=== PATIENT | female | born 1980 | race Caucasian/White ===

== ENCOUNTER → 2016-10-07 | Outpatient (CLI) | payer OTHER ==
[~2016-10-07] MED LIST: ACET50TA PO; CETI5TA GT; IBUP80TA PO; PRE-TAB3 AD; [UNRECOGNIZED DRUG - CODE] XX
--- NOTE | 2016-10-07 11:10 | REP ---
ABDOMEN, FLAT AND UPRIGHT, PA CHEST, THREE VIEWS: HISTORY: Abdominal pain. Air is present in small and large intestine. There are no air fluid levels or dilated loops of intestine. There is no pneumoperitoneum. There is spina bifida occulta of L5. The lungs are clear. IMPRESSION: Nonspecific bowel gas pattern. Signed by Ephraim Hill MD 10/07/2016 11:23 A
[2016-10-07 18:47] LABS: ALBUMIN 4.5 GM/DL (3.2-5.2); ALBUMIN/GLOBULIN RATIO 1.88 (1.00-1.93); ALKALINE PHOSPHATASE 73 U/L (45-117); ALT/SGPT 16 U/L (12-78); ANION GAP 9 MEQ/L (8-16); AST/SGOT 9 U/L (15-37); BILIRUBIN,TOTAL 0.3 MG/DL (0.2-1.0); BLOOD UREA NITROGEN 11 MG/DL (7-18); CALCIUM LEVEL 8.5 MG/DL (8.5-10.1); CARBON DIOXIDE LEVEL 22 MEQ/L (21-32); CHLORIDE LEVEL 112 MEQ/L (98-107); CREATININE FOR GFR 0.92 MG/DL (0.55-1.02); GLOMERULAR FILTRATION RATE > 60.0 (>60); GLUCOSE, FASTING 100 MG/DL (70-105); POTASSIUM SERUM 4.1 MEQ/L (3.5-5.1); SODIUM LEVEL 143 MEQ/L (136-145); TOTAL PROTEIN 6.9 GM/DL (6.4-8.2)
[2016-10-07 18:59] LABS: MEAN CORPUSCULAR VOLUME 98.5 fl (80.0-96.0); WHITE BLOOD COUNT 5.7 K/mm3 (4.0-10.0)
[2016-10-07 19:00] LABS: MEAN CORPUSCULAR HGB CONC 33.4 g/dl (32.0-36.5); RED CELL DISTRIBUTION WIDTH 12.7 % (11.5-14.5)
[2016-10-07 19:45] LABS: ERYTHROCYTE SEDIMENTATION RATE 6 mm/hr (0-20)
[2016-10-07 19:49] LABS: BASOPHILS 1 % (0-4); EOSINOPHILS 6 % (0-5)
== END ==
LOC: M WUC 10:19
PROVIDERS: ATTEND Physician Assistant
DX: R10.32 Left lower quadrant pain (principal)

== ENCOUNTER 2017-06-24 15:17 | Emergency (ER) | payer OTHER ==
[~2017-06-24] VITALS: Ht 157.5 cm; Wt 66.0 kg
[~2017-06-24 15:17] MED LIST changes: -BUPR1TAB53 PO; -CIPR-249 PO; -GASTROGRAFIN SOLUTION 30ML (Q9963) As Ordered ONE; -ISOVUE-370 76% 100ML VIAL (Q9967) As Ordered ONE; -PYRI1TAB5 PO; -TOPA1TAB PO
[2017-06-24 15:18] VITALS: BP 108/63
[2017-06-24] MEDS ORDERED: BUPR1TAB53 PO (15:29)
[2017-06-24] MEDS ORDERED: TOPA1TAB PO (15:29)
[2017-06-24] MEDS ORDERED: CIPR-249 PO ×2 (15:37→16:20)
[2017-06-24] MEDS ORDERED: PYRI1TAB5 PO (15:38)
== END 2017-06-24 16:40 | disposition home or self-care (01) ==
LOC: M ED 15:17
DX: N10 Acute pyelonephritis (principal); F33.9 Major depressive disorder, recurrent, unspecified; F17.210 Nicotine dependence, cigarettes, uncomplicated; Z79.899 Other long term (current) drug therapy

== ENCOUNTER → 2017-06-24 | Outpatient (CLI) | payer OTHER ==
[~2017-06-24] MED LIST changes: +BUPR1TAB53 PO; +CIPR-249 PO; +PYRI1TAB5 PO; +TOPA1TAB PO
--- NOTE | 2017-06-24 11:54 | REP ---
KUB ABDOMEN AND PELVIS: KUB film of abdomen and pelvis is performed. Bowel gas pattern is unremarkable with no evidence of bowel obstruction. There appears to be some scattered speckled dense material in the colon associated with fecal material. There is an oval density in the right pelvis measuring 7 mm in maximum diameter, again this may be related to fecal material in the colon. However, I cannot completely exclude a distal ureteral calculus. Further evaluation may be made with CT scan. Signed by Ramiro Alanis MD 06/25/2017 09:08 A
[2017-06-24 12:05] LABS: BASO % 0.1 % (0.0-1.0); EOS # 0.2 10^3/uL (0.0-0.50); EOS % 0.9 % (0.0-3.0); IMMATURE GRANULOCYTE % 0.4 % (0-0); LYMPH # 1.5 10^3/uL (1.5-4.5); LYMPH % 8.8 % (24.0-44.0); MEAN CORPUSCULAR HEMOGLOBIN 32.5 pg (27.0-33.0); MEAN CORPUSCULAR HGB CONC 33.5 g/dl (32.0-36.5); MEAN CORPUSCULAR VOLUME 96.8 fl (80.0-96.0); MONO # 1.5 10^3/uL (0.0-0.8); MONO % 8.9 % (0.0-5.0); NEUTROPHILS # 13.7 10^3/uL (1.8-7.7); NEUTROPHILS % 80.9 % (36.0-66.0); PLATELET COUNT, AUTOMATED 302 10^3/uL (150-450); RED CELL DISTRIBUTION WIDTH 12.9 % (11.5-14.5); WHITE BLOOD COUNT 16.9 10^3/uL (4.0-10.0)
[2017-06-24 12:27] LABS: ALBUMIN 3.6 GM/DL (3.2-5.2); ALBUMIN/GLOBULIN RATIO 1.06 (1.00-1.93); ALKALINE PHOSPHATASE 90 U/L (45-117); ALT/SGPT 18 U/L (12-78); AMYLASE 18 U/L (25-115); ANION GAP 9 MEQ/L (8-16); AST/SGOT 7 U/L (7-37); BILIRUBIN,TOTAL 0.3 MG/DL (0.2-1.0); BLOOD UREA NITROGEN 10 MG/DL (7-18); CALCIUM LEVEL 8.4 MG/DL (8.5-10.1); CARBON DIOXIDE LEVEL 23 MEQ/L (21-32); CHLORIDE LEVEL 106 MEQ/L (98-107); GLOMERULAR FILTRATION RATE > 60.0 (>60); GLUCOSE, FASTING 108 MG/DL (70-105); POTASSIUM SERUM 3.7 MEQ/L (3.5-5.1); SODIUM LEVEL 138 MEQ/L (136-145)
== END ==
LOC: M WUC 10:30
PROVIDERS: ATTEND Physician Assistant
DX: M54.5 Low back pain (principal)

== ENCOUNTER → 2017-06-24 | Outpatient (CLI) | payer OTHER ==
[~2017-06-24] MED LIST changes: +GASTROGRAFIN SOLUTION 30ML (Q9963) As Ordered ONE; +ISOVUE-370 76% 100ML VIAL (Q9967) As Ordered ONE
--- NOTE | 2017-06-24 14:55 | REP ---
CT of the abdomen pelvis without and with IV contrast: There are no comparisons. There is bilateral L5 spondylolysis. There is grade II L5 spondylolisthesis. There is L5 S1 advanced degenerative disc disease. The visualized lung gardner are unremarkable. The hepatic parenchyma, gallbladder, pancreas and spleen are unremarkable on both phases of the study. The adrenals are unremarkable. There are three E hypodense lesions in the right kidney, not definitely cysts by CT. Mid pole posterior medially measuring 19 mm . Lower pole posteriorly measuring 10 mm. Lower pole laterally measuring 18 mm. These are nonspecific and could represent pyelonephritis, renal masses or renal cysts. Recommend follow-up MRI for further evaluation. The left kidney is unremarkable. The abdominal aorta is unremarkable. There is no bowel distension or obstruction. Pelvis: There is a left adnexal 18 mm follicle. The right adnexa is unremarkable. The uterus is unremarkable. There is no adenopathy or ascites. Half the pelvic bowel loops are unremarkable. The appendix is unremarkable. Impression: There are three hypodense lesions in the right kidney, not definitively cysts by CT. Other diagnostic considerations are renal masses and pyelonephritis. Recommend MRI for further evaluation of these findings. There is no hydronephrosis. There is an 18 mm follicle in the left adnexa. The gallbladder and appendix are unremarkable. There is bilateral L5 spondylolysis with grade 2 spondylolisthesis. There is L5 S1 advanced degenerative disc disease. Signed by Ramiro Crawford MD 06/24/2017 02:47 P
== END ==
LOC: M RAD 12:15
PROVIDERS: ATTEND Physician Assistant
DX: M54.5 Low back pain (principal)

== ENCOUNTER 2017-08-18 14:28 | Emergency (ER) | payer OTHER | END 2017-08-18 16:54 | disposition home or self-care (01) | LOC: M ED 14:28 | DX: Z04.1 Encounter for examination and observation following transport accident (principal); M62.830 Muscle spasm of back; V43.52XA Car driver injured in collision with other type car in traffic accident, initial encounter; Y92.410 Unspecified street and highway as the place of occurrence of the external cause; F41.9 Anxiety disorder, unspecified; F33.9 Major depressive disorder, recurrent, unspecified; F17.210 Nicotine dependence, cigarettes, uncomplicated; Z86.69 Personal history of other diseases of the nervous system and sense organs | CPT/HCPCS: 99283 ==

== ENCOUNTER → 2017-10-26 | Outpatient (CLI) | payer OTHER ==
[~2017-10-26] MED LIST changes: -ACET50TA PO; -CETI5TA GT; -IBUP80TA PO; -PRE-TAB3 AD; +PROHANCE 279.3MG/ML 15ML VIAL (A9576) As Ordered; -[UNRECOGNIZED DRUG - CODE] XX
== END ==
LOC: M RAD 08:43
DX: R93.421 Abnormal radiologic findings on diagnostic imaging of right kidney (principal); R93.5 Abnormal findings on diagnostic imaging of other abdominal regions, including retroperitoneum
CPT/HCPCS: A9576

== ENCOUNTER → 2017-11-03 | Outpatient (CLI) | payer OTHER | LOC: M RAD 06:03 | DX: R93.2 Abnormal findings on diagnostic imaging of liver and biliary tract (principal) ==

== ENCOUNTER → 2017-11-03 | Outpatient (REF) | payer OTHER ==
[2017-11-05 14:13] LABS: HPV HYBRID CAPTURE II Negative (Negative)
== END ==
LOC: M SFHCCAPE 11:33
DX: Z01.419 Encounter for gynecological examination (general) (routine) without abnormal findings (principal)

== ENCOUNTER → 2017-11-10 | Outpatient (REF) | payer OTHER ==
[2017-11-10 16:39] LABS: BASO % 0.3 % (0.0-1.0); EOS # 0.3 10^3/uL (0.0-0.50); EOS % 3.8 % (0.0-3.0); HEMATOCRIT 40.1 % (36.0-47.0); HEMOGLOBIN 13.3 g/dl (12.0-15.5); IMMATURE GRANULOCYTE % 0.2 % (0-3.0); LYMPH # 1.7 10^3/uL (1.5-4.5); LYMPH % 26.2 % (24.0-44.0); MEAN CORPUSCULAR HEMOGLOBIN 32.3 pg (27.0-33.0); MEAN CORPUSCULAR HGB CONC 33.2 g/dl (32.0-36.5); MEAN CORPUSCULAR VOLUME 97.3 fl (80.0-96.0); MONO # 0.5 10^3/uL (0.0-0.8); MONO % 7.1 % (0.0-5.0); NEUTROPHILS # 4.1 10^3/uL (1.8-7.7); NEUTROPHILS % 62.4 % (36.0-66.0); PLATELET COUNT, AUTOMATED 315 10^3/uL (150-450); RED BLOOD COUNT 4.12 10^6/uL (4.00-5.40); RED CELL DISTRIBUTION WIDTH 12.6 % (11.5-14.5); WHITE BLOOD COUNT 6.5 10^3/uL (4.0-10.0)
[2017-11-10 17:01] LABS: TOTAL 25(OH) VITAMIN D 17.1 NG/ML (30.0-100.0); VITAMIN B12 LEVEL 454 PG/ML (247-911)
[2017-11-10 17:02] LABS: ALBUMIN 4.2 GM/DL (3.2-5.2); ALBUMIN/GLOBULIN RATIO 1.35 (1.00-1.93); ALKALINE PHOSPHATASE 78 U/L (45-117); ALT/SGPT 19 U/L (12-78); ANION GAP 7 MEQ/L (8-16); AST/SGOT 15 U/L (7-37); BILIRUBIN,TOTAL 0.7 MG/DL (0.2-1.0); BLOOD UREA NITROGEN 14 MG/DL (7-18); CALCIUM LEVEL 8.4 MG/DL (8.5-10.1); CARBON DIOXIDE LEVEL 27 MEQ/L (21-32); CHLORIDE LEVEL 107 MEQ/L (98-107); CHOLESTEROL LEVEL 176 MG/DL (<200); CHOLESTEROL RISK RATIO 5.176 (<5); CREATININE FOR GFR 1.04 MG/DL (0.55-1.30); GLOMERULAR FILTRATION RATE > 60.0 (>60); GLUCOSE, FASTING 84 MG/DL (70-100); HDL CHOLESTEROL 34 MG/DL (>40); LDL CHOLESTEROL 112.8 MG/DL (<100); NON-HDL-C 142 MG/DL; POTASSIUM SERUM 4.3 MEQ/L (3.5-5.1); SODIUM LEVEL 141 MEQ/L (136-145); TOTAL PROTEIN 7.3 GM/DL (6.4-8.2); TRIGLYCERIDES LEVEL 146 MG/DL (<150)
== END ==
LOC: M SFHCCAPE 08:42
DX: F32.1 Major depressive disorder, single episode, moderate (principal); Z13.6 Encounter for screening for cardiovascular disorders; R53.83 Other fatigue
CPT/HCPCS: 84443

== ENCOUNTER → 2018-03-29 | Outpatient (REF) | payer OTHER ==
[2018-03-30 17:23] LABS: BASO % 0.2 % (0.0-1.0); EOS # 0.3 10^3/uL (0.0-0.50); EOS % 4.5 % (0.0-3.0); HEMATOCRIT 40.1 % (36.0-47.0); IMMATURE GRANULOCYTE % 0.3 % (0-3.0); LYMPH # 1.9 10^3/uL (1.5-4.5); LYMPH % 32.8 % (24.0-44.0); MEAN CORPUSCULAR HGB CONC 32.4 g/dl (32.0-36.5); MEAN CORPUSCULAR VOLUME 101.8 fl (80.0-96.0); MONO # 0.4 10^3/uL (0.0-0.8); MONO % 6.6 % (0.0-5.0); NEUTROPHILS # 3.2 10^3/uL (1.8-7.7); NEUTROPHILS % 55.6 % (36.0-66.0); PLATELET COUNT, AUTOMATED 342 10^3/uL (150-450); RED BLOOD COUNT 3.94 10^6/uL (4.00-5.40); WHITE BLOOD COUNT 5.8 10^3/uL (4.0-10.0)
[2018-03-30 17:38] LABS: ALBUMIN 4.1 GM/DL (3.2-5.2); ALBUMIN/GLOBULIN RATIO 1.41 (1.00-1.93); ALKALINE PHOSPHATASE 71 U/L (45-117); ALT/SGPT 25 U/L (12-78); ANION GAP 9 MEQ/L (8-16); AST/SGOT 11 U/L (7-37); BILIRUBIN,TOTAL 0.4 MG/DL (0.2-1.0); BLOOD UREA NITROGEN 10 MG/DL (7-18); CALCIUM LEVEL 8.8 MG/DL (8.5-10.1); CARBON DIOXIDE LEVEL 24 MEQ/L (21-32); CHLORIDE LEVEL 108 MEQ/L (98-107); CHOLESTEROL LEVEL 174 MG/DL (<200); CHOLESTEROL RISK RATIO 5.437 (<5); CREATININE FOR GFR 0.96 MG/DL (0.55-1.30); GLOMERULAR FILTRATION RATE > 60.0 (>60); GLUCOSE, FASTING 75 MG/DL (70-100); HDL CHOLESTEROL 32 MG/DL (>40); LDL CHOLESTEROL 91 MG/DL (<100); NON-HDL-C 142 MG/DL; POTASSIUM SERUM 4.4 MEQ/L (3.5-5.1); SODIUM LEVEL 141 MEQ/L (136-145); THYROID STIMULATING HORMONE 0.891 uIU/ML (0.358-3.740); TRIGLYCERIDES LEVEL 255 MG/DL (<150)
[2018-03-30 17:46] LABS: TOTAL 25(OH) VITAMIN D 44.9 NG/ML (30.0-100.0)
== END ==
LOC: M SFHCCAPE 09:31
DX: E55.9 Vitamin D deficiency, unspecified (principal); E78.2 Mixed hyperlipidemia

== ENCOUNTER 2018-06-29 20:15 | Emergency (ER) | payer OTHER ==
[2018-06-29] MEDS: KETOROLAC TROMETHAMINE 10 MG TAB PO (21:21)
[2018-06-29] MEDS: CEPHALEXIN 500 MG CAP PO (21:21)
[2018-06-29] MEDS: ADACEL/BOOSTRIX VACCINE (DIPHTH/PERTUSS/ACELL/TETANUS)0.5ML SYR (90715) IM (21:22)
== END 2018-06-29 22:01 | disposition home or self-care (01) ==
LOC: M ED 20:15
DX: S61.201A Unspecified open wound of left index finger without damage to nail, initial encounter (principal); W26.0XXA Contact with knife, initial encounter; Y92.099 Unspecified place in other non-institutional residence as the place of occurrence of the external cause; Y93.89 Activity, other specified; Y99.9 Unspecified external cause status; G43.909 Migraine, unspecified, not intractable, without status migrainosus; F41.9 Anxiety disorder, unspecified; F32.9 Major depressive disorder, single episode, unspecified; Z72.0 Tobacco use
CPT/HCPCS: 90715

== ENCOUNTER → 2018-09-08 | Outpatient (CLI) | payer OTHER ==
[~2018-09-08] MED LIST changes: +ACET50TA PO; +AJOV225I; +AUGM875T28 PO; +BUPR1TAB53 PO; +CETI5TA GT; +CIPR-249 PO; +ESCI20TA; +IBUP-1022 PO; +IBUP80TA PO; +KEFL500C17 PO; +KETO10TAB PO; +NORC1TAB4 PO; +PRE-TAB3 AD; -PROHANCE 279.3MG/ML 15ML VIAL (A9576) As Ordered; +PYRI1TAB5 PO; +ROBA500T PO; +TOPA1TAB PO; +TOPI50TA9; +[UNRECOGNIZED DRUG - CODE] XX
--- NOTE | 2018-09-08 16:18 | REP ---
Clinical: Lower back pain with prior fall. Technique: AP, lateral, bilateral oblique and coned-down views of the lumbosacral spine. Findings: Vertebral bodies appear intact and there is no evidence for acute fracture / compression injury. Grade 1 anterolisthesis at the L5-S1 level cannot be excluded. Alignment and lordosis is otherwise maintained and normal. Impression: Cannot exclude grade 1 anterolisthesis at the L5-S1 level. No evidence for acute fracture / compression injury. Electronically Signed by Jared Mayfield MD 09/08/2018 04:10 P
== END ==
LOC: M WUC 15:49
PROVIDERS: ATTEND Physician Assistant
DX: M54.5 Low back pain (principal)

== ENCOUNTER → 2018-09-08 | Outpatient (REF) | payer OTHER ==
[2018-09-08 16:49] LABS: BASO % 0.3 % (0.0-1.0); EOS # 0.3 10^3/uL (0.0-0.50); HEMATOCRIT 40.6 % (36.0-47.0); HEMOGLOBIN 13.4 g/dl (12.0-15.5); LYMPH # 2.1 10^3/uL (1.5-4.5); LYMPH % 31.1 % (24.0-44.0); MONO # 0.5 10^3/uL (0.0-0.8); MONO % 7.8 % (0.0-5.0); NEUTROPHILS # 3.7 10^3/uL (1.8-7.7); NEUTROPHILS % 55.4 % (36.0-66.0); PLATELET COUNT, AUTOMATED 327 10^3/uL (150-450); RED BLOOD COUNT 4.06 10^6/uL (4.00-5.40); WHITE BLOOD COUNT 6.8 10^3/uL (4.0-10.0)
[2018-09-08 17:10] LABS: ALT/SGPT 36 U/L (12-78); BILIRUBIN,TOTAL 0.3 MG/DL (0.2-1.0); BLOOD UREA NITROGEN 13 MG/DL (7-18); CALCIUM LEVEL 8.4 MG/DL (8.5-10.1); CARBON DIOXIDE LEVEL 26 MEQ/L (21-32); CHLORIDE LEVEL 104 MEQ/L (98-107); CHOLESTEROL LEVEL 199 MG/DL (<200); CHOLESTEROL RISK RATIO 4.975 (<5); CREATININE FOR GFR 0.76 MG/DL (0.55-1.30); GLOMERULAR FILTRATION RATE > 60.0 (>60); GLUCOSE, FASTING 86 MG/DL (70-100); HDL CHOLESTEROL 40 MG/DL (>40); LDL CHOLESTEROL 105 MG/DL (<100); NON-HDL-C 159 MG/DL; POTASSIUM SERUM 4.4 MEQ/L (3.5-5.1); SODIUM LEVEL 136 MEQ/L (136-145); TOTAL 25(OH) VITAMIN D 17.2 NG/ML (30.0-100.0); TOTAL PROTEIN 7.1 GM/DL (6.4-8.2); TRIGLYCERIDES LEVEL 272 MG/DL (<150)
[2018-09-08 17:37] LABS: HEMOGLOBIN A1c 4.9 %
== END ==
LOC: M SFHCCAPE 07:04
PROVIDERS: ATTEND Physician Assistant
DX: E16.2 Hypoglycemia, unspecified (principal); E78.2 Mixed hyperlipidemia; R45.86 Emotional lability; E55.9 Vitamin D deficiency, unspecified

== ENCOUNTER → 2018-11-04 | Outpatient (REF) | payer OTHER ==
[~2018-11-04] MED LIST changes: -ACET50TA PO; +MAPA500T17 PO; -NORC1TAB4 PO; +NORC1TAB7 PO
[2018-11-04 21:39] LABS: CHLAMYDIA DNA AMPLIFICATION NEGATIVE (NEGATIVE); GC DNA AMPLIFICATION NEGATIVE (NEGATIVE)
== END ==
LOC: M SFHCCAPE 11:00
PROVIDERS: ATTEND Physician Assistant
DX: Z01.419 Encounter for gynecological examination (general) (routine) without abnormal findings (principal); R10.2 Pelvic and perineal pain

== ENCOUNTER → 2019-05-22 | Outpatient (CLI) | payer BC ==
--- NOTE | 2019-05-22 11:22 | REP ---
PA and lateral chest: There are no comparisons. The lung gardner are clear. The cardiac size is normal. The esperanza, mediastinum, and skeletal structures are unremarkable. Impression: Negative PA and lateral chest. Electronically Signed by Ramiro Crawford MD 05/22/2019 11:13 A
== END ==
LOC: M WUC 10:28
PROVIDERS: ATTEND Physician Assistant
DX: Z72.0 Tobacco use (principal); R05 Cough

== ENCOUNTER 2019-06-16 18:15 | Emergency (ER) | payer BC ==
[~2019-06-16] VITALS: Ht 154.9 cm; Wt 72.8 kg
[2019-06-16] MEDS ORDERED: LAMO25TA4 (18:30)
[2019-06-16] MEDS ORDERED: EMGA120I (18:30)
[2019-06-16] MEDS ORDERED: RIZA5TAB PO (18:56)
[2019-06-16] MEDS ORDERED: ONDA4TAB6 PO (18:56)
[2019-06-16] MEDS ORDERED: MELA3TAB49 PO (18:56)
[2019-06-16] MEDS ORDERED: MECLIZINE 25 MG TABLET PO ONE (19:30)
--- NOTE | 2019-06-16 20:03 | REP ---
CHEST, SINGLE VIEW: There is no evidence of acute infiltrate. No pleural effusion is seen. The heart is normal in size. The mediastinal silhouette is unremarkable. The visualized osseous structures are intact. IMPRESSION: No acute pulmonary disease. Electronically Signed by Ramiro Alanis MD 06/17/2019 03:49 P
[2019-06-16 20:07] LABS: BASO % 0.2 % (0.0-1.0); EOS # 0.3 10^3/uL (0.0-0.5); EOS % 3.1 % (0.0-3.0); HEMATOCRIT 41.6 % (36.0-47.0); HEMOGLOBIN 13.4 g/dl (12.0-15.5); LYMPH # 2.6 10^3/uL (1.5-5.0); LYMPH % 31.2 % (24.0-44.0); MEAN CORPUSCULAR HEMOGLOBIN 32.5 pg (27.0-33.0); MEAN CORPUSCULAR HGB CONC 32.2 g/dl (32.0-36.5); MONO # 0.5 10^3/uL (0.0-0.8); MONO % 5.6 % (0.0-5.0); NEUTROPHILS % 59.7 % (36.0-66.0); PLATELET COUNT, AUTOMATED 344 10^3/uL (150-450); RED BLOOD COUNT 4.12 10^6/uL (4.00-5.40); WHITE BLOOD COUNT 8.4 10^3/uL (4.0-10.0)
--- NOTE | 2019-06-16 20:10 | REPVR ---
PROCEDURE INFORMATION: Exam: CT Head Without Contrast Exam date and time: 06/16/2019 7:26 PM Age: 38 years old Clinical history: Pain; Headache; Additional info: Headache, vertigo TECHNIQUE: Imaging protocol: Computed tomography of the head without contrast. Radiation optimization: All CT scans at this facility use at least one of these dose optimization techniques: automated exposure control; mA and/or kV adjustment per patient size (includes targeted exams where dose is matched to clinical indication); or iterative reconstruction. COMPARISON: No relevant prior studies available. FINDINGS: Brain: Normal. No hemorrhage. Unremarkable white matter. No mass effect. Ventricles: Normal. No ventriculomegaly. Bones/joints: Unremarkable. No acute fracture. Sinuses: Visualized sinuses are unremarkable. No fluid levels. Mastoid air cells: Visualized mastoid air cells are well aerated. Soft tissues: Unremarkable. IMPRESSION: No acute intracranial abnormality. Electronically signed by: Shiv Sanders On 06/16/2019 20:10:44 PM
[2019-06-16 20:16] LABS: INR 1.06; PROTHROMBIN TIME 13.5 SECONDS (11.8-14.0)
[2019-06-16 20:17] LABS: PARTIAL THROMBOPLASTIN TIME 31.5 SECONDS (25.0-38.4)
[2019-06-16 20:38] LABS: BLOOD UREA NITROGEN 14 MG/DL (7-18); CALCIUM LEVEL 8.8 MG/DL (8.5-10.1); CARBON DIOXIDE LEVEL 24 MEQ/L (21-32); CHLORIDE LEVEL 110 MEQ/L (98-107); CK-MB VALUE MASS < 1.0 NG/ML (<3.6); CPK CREATINE PHOSPHOKINASE 67 U/L (26-192); CREATININE FOR GFR 0.86 MG/DL (0.55-1.30); FREE T4 0.85 NG/DL (0.76-1.46); GLOMERULAR FILTRATION RATE > 60.0 (>60); GLUCOSE, FASTING 90 MG/DL (70-100); MAGNESIUM LEVEL 2.3 MG/DL (1.8-2.4); MB/CK RELATIVE INDEX 1.49 (< OR =4); POTASSIUM SERUM 4.1 MEQ/L (3.5-5.1); SODIUM LEVEL 140 MEQ/L (136-145); TROPONIN I < 0.02 NG/ML (< 0.10)
[2019-06-16] MEDS ORDERED: MECL-68 PO (20:54)
[2019-06-16 21:21] VITALS: BP 117/73
--- NOTE | 2019-06-17 15:19 | ECGEPIP ---
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
== END 2019-06-16 21:23 | disposition home or self-care (01) ==
LOC: M ED 18:15
DX: R42 Dizziness and giddiness (principal); F17.200 Nicotine dependence, unspecified, uncomplicated; Z79.899 Other long term (current) drug therapy

== ENCOUNTER → 2020-07-17 | Outpatient (REF) | payer OTHER ==
[~2020-07-17] MED LIST changes: +EMGA120I; -ESCI20TA; +ESCI20TA16; +LAMO25TA4; +MECL1TAB31 PO; +MELA3TAB49 PO; +ONDA4TAB6 PO; +RIZA5TAB PO
[2020-07-17 16:28] LABS: BASO % 0.2 % (0.0-1.0); EOS # 0.4 10^3/uL (0.0-0.5); EOS % 2.9 % (0.0-3.0); HEMATOCRIT 43.1 % (36.0-47.0); HEMOGLOBIN 13.8 g/dl (12.0-15.5); MEAN CORPUSCULAR HEMOGLOBIN 32.2 pg (27.0-33.0); MEAN CORPUSCULAR VOLUME 100.5 fl (80.0-96.0); MONO # 0.7 10^3/uL (0.0-0.8); MONO % 5.5 % (0.0-5.0); NEUTROPHILS # 8.7 10^3/uL (1.5-8.5); NEUTROPHILS % 68.1 % (36.0-66.0); PLATELET COUNT, AUTOMATED 393 10^3/uL (150-450); RED BLOOD COUNT 4.29 10^6/uL (4.00-5.40); WHITE BLOOD COUNT 12.8 10^3/uL (4.0-10.0)
[2020-07-17 17:08] LABS: ALBUMIN 4.2 GM/DL (3.2-5.2); ALT/SGPT 36 U/L (12-78); BILIRUBIN,TOTAL 0.3 MG/DL (0.2-1.0); BLOOD UREA NITROGEN 10 MG/DL (7-18); CALCIUM LEVEL 9.2 MG/DL (8.5-10.1); CARBON DIOXIDE LEVEL 26 MEQ/L (21-32); CHLORIDE LEVEL 104 MEQ/L (98-107); CHOLESTEROL LEVEL 213 MG/DL (<200); CHOLESTEROL RISK RATIO 7.607 (<5); CREATININE FOR GFR 0.97 MG/DL (0.55-1.30); GLOMERULAR FILTRATION RATE > 60.0 (>60); GLUCOSE, FASTING 105 MG/DL (70-100); HDL CHOLESTEROL 28 MG/DL (>40); LDL CHOLESTEROL 115 MG/DL (<100); NON-HDL-C 185 MG/DL; POTASSIUM SERUM 4.5 MEQ/L (3.5-5.1); SODIUM LEVEL 136 MEQ/L (136-145); TOTAL PROTEIN 7.3 GM/DL (6.4-8.2); TRIGLYCERIDES LEVEL 352 MG/DL (<150)
== END ==
LOC: M SFHCCLAY 09:45
PROVIDERS: ATTEND Physician Assistant
DX: Z00.00 Encounter for general adult medical examination without abnormal findings (principal); E78.2 Mixed hyperlipidemia; E55.9 Vitamin D deficiency, unspecified

== ENCOUNTER → 2020-08-24 | Outpatient (CLI) | payer OTHER ==
[2020-08-24 12:40] LABS: BASO % 0.4 % (0.0-1.0); EOS # 0.2 10^3/uL (0.0-0.5); EOS % 2.6 % (0.0-3.0); HEMATOCRIT 44.2 % (36.0-47.0); HEMOGLOBIN 13.9 g/dl (12.0-15.5); LYMPH # 2.6 10^3/uL (1.5-5.0); LYMPH % 30.4 % (24.0-44.0); MEAN CORPUSCULAR HEMOGLOBIN 31.4 pg (27.0-33.0); MEAN CORPUSCULAR HGB CONC 31.4 g/dl (32.0-36.5); MEAN CORPUSCULAR VOLUME 99.8 fl (80.0-96.0); MONO # 0.5 10^3/uL (0.0-0.8); MONO % 6.1 % (2.0-8.0); NEUTROPHILS % 60.1 % (36.0-66.0); PLATELET COUNT, AUTOMATED 381 10^3/uL (150-450); RED BLOOD COUNT 4.43 10^6/uL (4.00-5.40); WHITE BLOOD COUNT 8.4 10^3/uL (4.0-10.0)
[2020-08-24 13:00] LABS: ALBUMIN 4.4 GM/DL (3.2-5.2); ALT/SGPT 29 U/L (12-78); BILIRUBIN,TOTAL 0.2 MG/DL (0.2-1.0); BLOOD UREA NITROGEN 13 MG/DL (7-18); CALCIUM LEVEL 9.4 MG/DL (8.5-10.1); CARBON DIOXIDE LEVEL 28 MEQ/L (21-32); CHLORIDE LEVEL 103 MEQ/L (98-107); CREATININE FOR GFR 0.88 MG/DL (0.55-1.30); GLOMERULAR FILTRATION RATE > 60.0 (>60); GLUCOSE, FASTING 105 MG/DL (70-100); POTASSIUM SERUM 4.3 MEQ/L (3.5-5.1); SODIUM LEVEL 139 MEQ/L (136-145); TOTAL PROTEIN 7.7 GM/DL (6.4-8.2)
== END ==
LOC: M WUC 09:54
PROVIDERS: ATTEND Physician Assistant
DX: R53.83 Other fatigue (principal)

== ENCOUNTER → 2020-11-26 | Outpatient (REF) | payer OTHER ==
[2020-11-26 16:37] LABS: ALBUMIN 4.1 GM/DL (3.2-5.2); ALT/SGPT 36 U/L (12-78); BILIRUBIN,TOTAL 0.4 MG/DL (0.2-1.0); BLOOD UREA NITROGEN 16 MG/DL (7-18); CALCIUM LEVEL 8.5 MG/DL (8.5-10.1); CARBON DIOXIDE LEVEL 27 MEQ/L (21-32); CHLORIDE LEVEL 106 MEQ/L (98-107); CHOLESTEROL LEVEL 189 MG/DL (<200); CHOLESTEROL RISK RATIO 6.096 (<5); CREATININE FOR GFR 0.74 MG/DL (0.55-1.30); GLOMERULAR FILTRATION RATE > 60.0 (>60); GLUCOSE, FASTING 90 MG/DL (70-100); HDL CHOLESTEROL 31 MG/DL (>40); LDL CHOLESTEROL 117 MG/DL (<100); NON-HDL-C 158 MG/DL; POTASSIUM SERUM 4.8 MEQ/L (3.5-5.1); SODIUM LEVEL 137 MEQ/L (136-145); TOTAL PROTEIN 6.9 GM/DL (6.4-8.2); TRIGLYCERIDES LEVEL 206 MG/DL (<150)
[2020-11-26 16:38] LABS: BASO % 0.4 % (0.0-1.0); EOS # 0.3 10^3/uL (0.0-0.5); EOS % 3.8 % (0.0-3.0); HEMATOCRIT 39.6 % (36.0-47.0); HEMOGLOBIN 12.6 g/dl (12.0-15.5); LYMPH # 2.2 10^3/uL (1.5-5.0); LYMPH % 31.3 % (24.0-44.0); MEAN CORPUSCULAR HEMOGLOBIN 32.4 pg (27.0-33.0); MEAN CORPUSCULAR HGB CONC 31.8 g/dl (32.0-36.5); MEAN CORPUSCULAR VOLUME 101.8 fl (80.0-96.0); MONO # 0.3 10^3/uL (0.0-0.8); NEUTROPHILS % 58.9 % (36.0-66.0); PLATELET COUNT, AUTOMATED 353 10^3/uL (150-450); RED BLOOD COUNT 3.89 10^6/uL (4.00-5.40); WHITE BLOOD COUNT 6.9 10^3/uL (4.0-10.0)
[2020-11-26 16:45] LABS: TOTAL 25(OH) VITAMIN D 24.5 NG/ML (30.0-100.0)
[2020-11-26 16:46] LABS: VITAMIN B12 LEVEL 1143 PG/ML
[2020-11-26 16:47] LABS: FOLATE 4.2 NG/ML
== END ==
LOC: M SFHCCAPE 09:42
PROVIDERS: ATTEND Physician Assistant
DX: D75.89 Other specified diseases of blood and blood-forming organs (principal); E78.2 Mixed hyperlipidemia; E55.9 Vitamin D deficiency, unspecified

== ENCOUNTER → 2020-11-29 | Outpatient (CLI) | payer OTHER ==
--- NOTE | 2020-11-30 01:19 | REP ---
INDICATION: AUTE PAIN OF RIGHT SHOULDER COMPARISON: None. TECHNIQUE: Internal rotation, external rotation, and Y view. FINDINGS: No acute fracture or dislocation. The acromioclavicular and glenohumeral joints are intact and essentially age-appropriate. No periarticular calcifications or overt degenerative changes are appreciated. Sub acromial space is normal. Surrounding soft tissues are unremarkable. IMPRESSION: Age-appropriate right shoulder radiographs. <Electronically signed by Jared Mayfield > 11/30/20 0115
--- NOTE | 2020-11-30 01:39 | REP ---
INDICATION: AUTE PAIN OF RIGHT SHOULDER COMPARISON: 05/22/2019 TECHNIQUE: PA and lateral. FINDINGS: The mediastinum and cardiac silhouette are normal. The lung gardner are clear and without acute consolidation, effusion, or pneumothorax. The skeletal structures are intact and normal. IMPRESSION: No acute cardiopulmonary process. <Electronically signed by Jared Mayfield > 11/30/20 0136
== END ==
LOC: M WUC 15:18
PROVIDERS: ATTEND Physician Assistant
DX: M25.511 Pain in right shoulder (principal)

== ENCOUNTER → 2020-12-25 | Outpatient (CLI) | payer OTHER ==
--- NOTE | 2020-12-26 02:14 | REP ---
INDICATION: RADICULOPATHY, CERVICAL REGION. COMPARISON: None. TECHNIQUE: AP, swimmer's, lateral and open-mouth views of the cervical spine. FINDINGS: Lateral view demonstrates reversal of normal lordosis which is nonspecific centered at C5-6 where minimal endplate sclerosis and disc space narrowing is noted. Remainder of the examination appears normal. IMPRESSION: Minimal degenerative changes at C5-6 with associated reversal of normal lordosis. <Electronically signed by Jared Mayfield > 12/26/20 6209
== END ==
LOC: M SOG 14:05
PROVIDERS: ATTEND Orthopaedic Surgery Sports Medicine
DX: M54.12 Radiculopathy, cervical region (principal)

== ENCOUNTER → 2021-01-07 | Outpatient (REF) | payer OTHER ==
[2021-01-07 16:02] LABS: BASO % 0.3 % (0.0-1.0); EOS # 0.3 10^3/uL (0.0-0.5); HEMATOCRIT 42.2 % (36.0-47.0); HEMOGLOBIN 13.8 g/dl (12.0-15.5); LYMPH # 2.6 10^3/uL (1.5-5.0); LYMPH % 28.2 % (24.0-44.0); MEAN CORPUSCULAR HEMOGLOBIN 33.1 pg (27.0-33.0); MEAN CORPUSCULAR HGB CONC 32.7 g/dl (32.0-36.5); MEAN CORPUSCULAR VOLUME 101.2 fl (80.0-96.0); MONO # 0.6 10^3/uL (0.0-0.8); MONO % 6.3 % (2.0-8.0); NEUTROPHILS # 5.6 10^3/uL (1.5-8.5); NEUTROPHILS % 61.9 % (36.0-66.0); PLATELET COUNT, AUTOMATED 425 10^3/uL (150-450); RED BLOOD COUNT 4.17 10^6/uL (4.00-5.40); WHITE BLOOD COUNT 9.1 10^3/uL (4.0-10.0)
[2021-01-07 16:44] LABS: ALBUMIN 4.5 GM/DL (3.2-5.2); ALT/SGPT 22 U/L (12-78); BILIRUBIN,TOTAL 0.5 MG/DL (0.2-1.0); BLOOD UREA NITROGEN 14 MG/DL (7-18); C REACTIVE PROTEIN QUANTITATIV 0.37 MG/DL (0.00-0.30); CALCIUM LEVEL 8.8 MG/DL (8.5-10.1); CARBON DIOXIDE LEVEL 25 MEQ/L (21-32); CHLORIDE LEVEL 106 MEQ/L (98-107); CREATININE FOR GFR 0.67 MG/DL (0.55-1.30); GLOMERULAR FILTRATION RATE > 60.0 (>60); GLUCOSE, FASTING 82 MG/DL (70-100); IRON (FE) 45 UG/DL (50-170); PERCENT SATURATION 14.1 % (13.2-45.0); POTASSIUM SERUM 4.6 MEQ/L (3.5-5.1); RHEUMATOID FACTOR QUANT < 10.0 IU/ML (<15.0); SODIUM LEVEL 136 MEQ/L (136-145); TOTAL 25(OH) VITAMIN D 30.3 NG/ML (30.0-100.0); TOTAL IRON BINDING CAPACITY 320 UG/DL (250-450); VITAMIN B12 LEVEL 1102 PG/ML
[2021-01-07 17:01] LABS: ERYTHROCYTE SEDIMENTATION RATE 5 mm/hr (0-20)
== END ==
LOC: M SFHCCAPE 08:35
PROVIDERS: ATTEND Physician Assistant
DX: M25.50 Pain in unspecified joint (principal)

== ENCOUNTER → 2021-01-09 | Outpatient (RCR) | payer OTHER ==
[~2021-01-09] MED LIST changes: -RIZA5TAB PO; +RIZA5TAB2 PO
== END ==
LOC: M PT 12-31 10:32
PROVIDERS: ATTEND Orthopaedic Surgery Sports Medicine
DX: M75.41 Impingement syndrome of right shoulder (principal)

== ENCOUNTER 2021-01-23 11:32 | Outpatient (RCR) | payer OTHER | END 2021-02-09 | LOC: M PT 11:32 | PROVIDERS: ATTEND Orthopaedic Surgery Sports Medicine | DX: M54.12 Radiculopathy, cervical region (principal); M75.41 Impingement syndrome of right shoulder ==

== ENCOUNTER → 2021-03-14 | Outpatient (REF) | payer OTHER ==
[~2021-03-14] MED LIST changes: -LAMO25TA4; +LAMO25TA4 PO; +LEXA1TAB2 PO; +PREN200C PO
[2021-03-14 16:46] LABS: APPEARANCE, URINE HAZY (CLEAR); BACTERIA, URINE AUTO 1+ (NEGATIVE); BILIRUBIN, URINE AUTO NEGATIVE (NEGATIVE); BLOOD, URINE BLOOD 1+ (NEGATIVE); COLOR, URINE YELLOW (YELLOW); GLUCOSE, URINE (UA) AUTO NEGATIVE (NEGATIVE); KETONE, URINE AUTO NEGATIVE (NEGATIVE); LEUKOCYTE ESTERASE, URINE AUTO 3+ (NEGATIVE); NITRITE, URINE AUTO POSITIVE (NEGATIVE); PROTEIN, URINE AUTO NEGATIVE (NEGATIVE); RBC, URINE AUTO 1 /HPF (0-3); SPECIFIC GRAVITY URINE AUTO 1.011 (1.002-1.035); SQUAMOUS EPITHELIAL CELL UR AU 1 /HPF (0-6); UROBILINOGEN, URINE AUTO 0.2 mg/dL (0.0-2.0); WBC, URINE AUTO 66 /HPF (0-3)
== END ==
LOC: M SFHCCAPE 09:54
PROVIDERS: ATTEND Physician Assistant
DX: R30.0 Dysuria (principal)

== ENCOUNTER → 2021-04-08 | Outpatient (CLI) | payer OTHER ==
[~2021-04-08] MED LIST changes: +LAMO25TA4; -LAMO25TA4 PO; -LEXA1TAB2 PO; -PREN200C PO
--- NOTE | 2021-04-08 16:49 | REP ---
INDICATION: IMPINGEMENT SYNDROME RT SHOULDER. COMPARISON: Comparison shoulder radiographs are from November 29, 2020. TECHNIQUE: Axial, oblique coronal, and oblique sagittal imaging planes utilized. T1 and T2 weighted scans are included with without fat saturation in the usual fashion. FINDINGS: There is bony hypertrophy, joint space narrowing, and mild marrow edema and subcortical cyst formation on either side of the AC joint consistent with osteoarthritis. This is mild. There is minimal indentation of the superior margin of the musculotendinous junction of the supraspinatus. Supraspinatus tendon is otherwise unremarkable on T1 and T2 weighted scans. Cortical and medullary bone signal intensity are otherwise normal. Glenohumeral and acromioclavicular joints are normally aligned. There is no visible anterior, posterior or superior labral cartilage tear. The subscapularis tendon is intact. Biceps tendon is seen within the bony bicipital groove and has a normal appearance. Infraspinatus tendon is unremarkable. IMPRESSION: Mild AC joint osteoarthritic change. Otherwise negative MRI study of the right shoulder. <Electronically signed by Jared Greer > 04/08/21 6901
== END ==
LOC: M PLAIMG 15:35
PROVIDERS: ATTEND Orthopaedic Surgery Sports Medicine
DX: M75.41 Impingement syndrome of right shoulder (principal)

== ENCOUNTER → 2021-05-03 | Outpatient (CLI) | payer OTHER ==
[~2021-05-03] MED LIST changes: -LAMO25TA4; +LAMO25TA4 PO; +LEXA1TAB2 PO; +PREN200C PO
== END ==
LOC: M LABSMTC 09:28
PROVIDERS: ATTEND Anesthesiology
DX: Z01.812 Encounter for preprocedural laboratory examination (principal); Z20.822 Contact with and (suspected) exposure to COVID-19

== ENCOUNTER 2021-05-08 08:18 | Day surgery (SDC) | payer OTHER ==
[~2021-05-08] VITALS: Ht 157.5 cm; Wt 74.0 kg
[~2021-05-08 08:18] MED LIST changes: +LIDOCAINE 1% MDV 20ML VIAL SQ PRN; +LR 1,000 ML IV ONE; +ceFAZolin SOD 2 GM in IV 1 EA IV ONE
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
--- OUTSIDE RECORDS SUMMARY | 2021-05-08 08:23 | CCD ---
Author Author [facility] Organization [facility] Address Unknown Phone Unavailable Care Team Providers Care Configuration Management Consultant Name Role Phone Lillie Villatoro Unavailable PROBLEMS Type Condition ICD9-CM Code [id number] Code Onset Dates Condition S tatus W/U Status Risk SNOMED Code Notes Problem Hand pain, right M79.641 Active confirmed 53 789103 Problem History of gestational diabetes Z86.32 Active confi rmed 926338564 Problem Mood swings F39 Active confirmed 67780495 Problem Skin lesions L98.9 Active confirmed 7754793 1 Problem Plaque psoriasis L40.0 Active confirmed 200 314980 Problem Psoriasis L40.9 Active confirmed 7881500 Problem Moderate major depression F32.1 Active confirmed 627682 Problem Intractable chronic migraine without aura and without status migrainosus G43.719 Active confirmed 808019388 Problem Vitamin D deficiency E55.9 Active confirmed 99917871 Problem Anxiety F41.9 Active confirmed 86931000 Problem Mixed hyperlipidemia E78.2 Active confirmed 034519539 Problem Mood disorder F39 Active confirmed 112723 05 Problem Other chronic pain G89.29 Active confirmed 8 8485543 Problem Migraine G43.909 Active confirmed 14192459 Problem Macrocytosis D75.89 Active confirmed 6537543 00 Problem Cigarette nicotine dependence without complication F17.210 Active confirmed 95097022 Problem Tobacco use disorder Z72.0 Active confirmed 759197962 Problem Moderately severe depression F32.2 Active confirme d 789310609 Problem Hypoglycemia E16.2 Active confirmed 9598578 03 Problem Essential hypertension I10 Active confirmed 08033287 Problem Menstrual migraine without status migrainosus, n ot intractable G43.829 Active confirmed 64705154 ALLERGIES Allergen (clinical drug ingredient) Drug/Non Drug Allergy do cumented on EMR Reaction Allergy Type Onset Date Status PrednisoLONE Nausea/Vomiting Drug Allergy Activ e ENCOUNTERS from 1982 to 2021-02-13 Encounter Location Date Provider Diagnosis [facility] Aravind Wright [address] [place] [address] [phone] [place] [address] Feb, Lillie Villatoro IMMUNIZATIONS Vaccine Route Administration Date [...] Education Language: Question Answer Notes Languages spoken: Israeli Tenriism: Question Answer Notes Tenriism 33 None No holiness beliefs that would impact health care. Sexual [...] Information RESULTS No Results REASON FOR VISIT Med MEDICAL (GENERAL) HISTORY Type Description Date Medical [...] teeth pulled 01/2019 Hospitalization History Kidney infection [facility] 2000 Goals Section No Information Health Concerns [...] Details Provider Name:Gela العلي, 2021-05-14 10:00:00 AM, [address] [place] [address], , [place], [address], Insurance Providers Payer Name Payer Address Payer Phone Insured Name Patient Relati onship to Insured Coverage Start Date Coverage End Date AETNA [facility] [address] [facility] [id number] MARISELA GAONA self
--- OUTSIDE RECORDS SUMMARY | 2021-05-08 08:23 | CCD | Continuity of Care Document ---
Author Author Dana LAGOS MD Organization Unknown Address [address] [place] [address] , [facility] [address] [place] [address] Phone [phone] Care Team Providers Care Patcher Name Role Phone Lillie Villatoro P.A.-C AUTM [phone] Problems Description No Information Available Social History Type Date Description Comments Sex Unknown ETOH Use Rarely Tobacco Use Start: Unknown Patient is a current smoker, smo kes every day Recreational Drug Use Denies Drug Use Allergies, Adverse Reactions, Alerts Description No Known Drug Allergies Medications Active Medications SIG Qnty Indications Ordering Provide r Date Escitalopram Oxalate 20mg Tablets Lillie Villatoro., P.A. Lamotrigine 200mg Tablets Lillie Villatoro., P.A. Folic Acid 1mg Tablets Take One Tablet By Mouth Every Day Unknown Tramadol HCL 50mg Tablets 1-2 every 6 hours as needed for pain after surgery Unknown Ferosul 325(65Fe) mg Tablets Take One Tablet By Mouth Every Day Unknown History Medications Valium 2mg Tablets 1 by mouth half an hour prior to mri may take 1 more tab 30 mins after if no effect from first one. 2tabs Del Lagos MD 04/05/2021 - 020 Immunizations Description No Information Available Vital Signs Date Vital Result Comment 02/18/2021 8:25am Body Temperature 97.6 F Results Description No Information Available Procedures Date Code Description Status 04/15/2021 53695 Office/Outpatient Established Mo d MDM 30-39 Min Completed 04/01/2021 85994 Office/Outpatient Established Lo w MDM 20-29 Min Completed 02/18/2021 46887 Office/Outpatient Established Lo w MDM 20-29 Min Completed 12/25/2020 53014 Office/Outpatient New Moderate M DM 45-59 Minutes Completed 12/25/202013302 Inject/Drain Arthrocentesis Kelle r Joint/Bursa/Ganglion Cyst Completed Medical Devices Description No Information Available Encounters Type Date Location Provider Dx Diagnosis Office Visit 04/15/2021 10:45a [facility] Del Lagos MD M75.41 Impingement syndrome of right shoulder Office Visit 04/01/2021 8:00a [facility] Del Lagos MD M75.41 Impingement syndrome of right shoulder G56.03 Carpal tunnel syndrome, bila teral upper limbs G56.22 Lesion of ulnar nerve, left upper limb Office Visit 02/18/2021 8:45a [facility] MD M75.41 Impingement syndrome of right shoulder G56.03 Carpal tunnel syndrome, bila teral upper limbs G56.22 Lesion of ulnar nerve, left upper limb Office Visit 12/25/2020 1:45p [facility] Del Lagos MD M54.12 Radiculopathy, cervical region M25.511 Pain in right shoulder Assessments Date Code Description Provider 04/15/2021 M75.41 Impingement syndrome of right sh rayo Lagos MD 04/01/2021 M75.41 Impingement syndrome of right sh rayo Lagos MD 04/01/2021 G56.03 Carpal tunnel syndrome, bilatera l upper limbs Del Lagos MD 04/01/2021 G56.22 Lesion of ulnar nerve, left uppe r limb Del Lagos MD 02/18/2021 M75.41 Impingement syndrome of right sh rayo Lagos MD 02/18/2021 G56.03 Carpal tunnel syndrome, bilatera l upper limbs Del Lagos MD 02/18/2021 G56.22 Lesion of ulnar nerve, left uppe r limb Del Lagos MD 12/25/2020 M54.12 Radiculopathy, cervical region Maverick Lagos MD 12/25/2020 M25.511 Pain in right shoulder Del hansen MD Plan of Treatment No Information Available Functional Status Description No Information Available Mental Status Description No Information Available Referrals Refer to Reason for Referral Status Appt Date Fatoumata Vicente M.D. bilateral upper extremities, rule out cervical radiculopathy vs CTS (symptoms on the right index middle and ring finger) Closed [facility], [facility] [place] [address] [phone]
--- OUTSIDE RECORDS SUMMARY | 2021-05-08 08:23 | CCD ---
Author Author [facility] Organization [facility] Address Unknown Phone Unavailable Care Team Providers Care Housekeeper Manager Name Role Phone Lillie Villatoro Unavailable PROBLEMS Type Condition ICD9-CM Code SHA67-UZ Code Onset Dates Condition S tatus W/U Status Risk SNOMED Code Notes Problem Hand pain, right M79.641 Active confirmed 53 089701 Problem History of gestational diabetes Z86.32 Active confi rmed 414070968 Problem Mood swings F39 Active confirmed 57836088 Problem Skin lesions L98.9 Active confirmed 3306975 1 Problem Plaque psoriasis L40.0 Active confirmed 200 434598 Problem Psoriasis L40.9 Active confirmed 2918260 Problem Moderate major depression F32.1 Active confirmed 730275 Problem Intractable chronic migraine without aura and without status migrainosus G43.719 Active confirmed 327739009 Problem Vitamin D deficiency E55.9 Active confirmed 74930433 Problem Anxiety F41.9 Active confirmed 98527871 Problem Mixed hyperlipidemia E78.2 Active confirmed 394676543 Problem Mood disorder F39 Active confirmed 828357 05 Problem Other chronic pain G89.29 Active confirmed 8 0077169 Problem Migraine G43.909 Active confirmed 24464171 Problem Macrocytosis D75.89 Active confirmed 3240788 00 Problem Cigarette nicotine dependence without complication F17.210 Active confirmed 97765480 Problem Tobacco use disorder Z72.0 Active confirmed 296200672 Problem Moderately severe depression F32.2 Active confirme d 562760382 Problem Hypoglycemia E16.2 Active confirmed 7520081 03 Problem Essential hypertension I10 Active confirmed 68862258 Problem Menstrual migraine without status migrainosus, n ot intractable G43.829 Active confirmed 60516171 ALLERGIES Allergen (clinical drug ingredient) Drug/Non Drug Allergy do cumented on EMR Reaction Allergy Type Onset Date Status PrednisoLONE Nausea/Vomiting Drug Allergy Activ e ENCOUNTERS from 1982 to 2021-02-19 Encounter Location Date Provider Diagnosis [facility] Aravind Wright [address] [place] [address] [place] [address] Dec, Lillie Villatoro IMMUNIZATIONS Vaccine Route Administration Date [...] Education Language: Question Answer Notes Languages spoken: Macanese Anglican: Question Answer Notes Anglican 33 None No holiness beliefs that would [...] Information RESULTS No Results REASON FOR VISIT Shoulder MEDICAL (GENERAL) HISTORY Type Description Date Medical [...] teeth pulled 01/2019 Hospitalization History Kidney infection [facility] 2000 Goals Section No Information Health Concerns [...] Details Provider Name:Gela العلي, 2021-05-14 10:00:00 AM, [address] [place] [address], , [place], [address], Insurance Providers Payer Name Payer Address Payer Phone Insured Name Patient Relati onship to Insured Coverage Start Date Coverage End Date AETNA [facility] [address] [facility] [id number] MARISELA GAONA self
--- OUTSIDE RECORDS SUMMARY | 2021-05-08 08:23 | CCD ---
Author Author [facility] Organization [facility] Address Unknown Phone Unavailable Care Team Providers Care Art Museum Aide Name Role Phone Lillie Villatoro Unavailable PROBLEMS Type Condition ICD9-CM Code MFN10-EY Code Onset Dates Condition S tatus W/U Status Risk SNOMED Code Notes Problem Hand pain, right M79.641 Active confirmed 53 624902 Problem History of gestational diabetes Z86.32 Active confi rmed 164237339 Problem Mood swings F39 Active confirmed 09003980 Problem Skin lesions L98.9 Active confirmed 1888801 1 Problem Plaque psoriasis L40.0 Active confirmed 200 945403 Problem Psoriasis L40.9 Active confirmed 8381349 Problem Moderate major depression F32.1 Active confirmed 172508 Problem Intractable chronic migraine without aura and without status migrainosus G43.719 Active confirmed 777188628 Problem Vitamin D deficiency E55.9 Active confirmed 02974662 Problem Anxiety F41.9 Active confirmed 24042775 Problem Mixed hyperlipidemia E78.2 Active confirmed 384674099 Problem Mood disorder F39 Active confirmed 562429 05 Problem Other chronic pain G89.29 Active confirmed 8 9009523 Problem Migraine G43.909 Active confirmed 33994371 Problem Macrocytosis D75.89 Active confirmed 4686271 00 Problem Cigarette nicotine dependence without complication F17.210 Active confirmed 85091391 Problem Tobacco use disorder Z72.0 Active confirmed 896938632 Problem Moderately severe depression F32.2 Active confirme d 779552308 Problem Hypoglycemia E16.2 Active confirmed 1915020 03 Problem Essential hypertension I10 Active confirmed 01567634 Problem Menstrual migraine without status migrainosus, n ot intractable G43.829 Active confirmed 12051132 ALLERGIES Allergen (clinical drug ingredient) Drug/Non Drug Allergy do cumented on EMR Reaction Allergy Type Onset Date Status PrednisoLONE Nausea/Vomiting Drug Allergy Activ e ENCOUNTERS from 1982 to 2021-02-27 Encounter Location Date Provider Diagnosis [facility] Aravind Wright [address] [place] [address] [phone] [place] [address] Feb, Lillie Villatoro IMMUNIZATIONS Vaccine Route Administration [...] Education Language: Question Answer Notes Languages spoken: Lithuanian Pentecostalism: Question Answer Notes Pentecostalism 33 None No mormon beliefs that would impact health care. Sexual [...] a day for 30 day(s) Jan, Active Glucometer as directed Apr, Active Alcohol Pads 70 % Twice daily PRN for 30 days Active Rizatriptan Benzoate 10 MG 1 tablet at onset of headac he, may repeat dose after 2 hours Orally as needed for 30 Active Blood Glucose Test - as directed In Vitro Twice daily as needed for 25 days Active lamoTRIgine 200 MG TAKE ONE TABLET BY MOUTH EVERY DAY for 90 Active Folic Acid 1 MG 1 tablet Orally Once a day for 30 day(s) 2 0 Nov, 2020 Active Ondansetron 4 MG 1 tablet on the tongue and a llow to dissolve Orally Once a day for 30 day(s) Active Clotrimazole 1 % 1 application Externally Twice a day for 28 day(s) Active Cyclobenzaprine HCl 5 MG 1 tablet as needed Orally three montse es a day for 5 days November, Not-Taking Lancets - Twice daily PRN for 30 days Active Vitamin B12 100 MCG as directed Orally Active Escitalopram Oxalate 20 MG TAKE ONE TABLET BY MOUTH EVERY DAY for 90 Active Multi Complete - Orally Active Vitamin D3 125 MCG (5000 UT) as directed Orally Once a week for 90 da y(s) Active PROCEDURES No Information RESULTS No Results REASON FOR VISIT Med approval MEDICAL (GENERAL) HISTORY Type Description Date Medical [...] teeth pulled 01/2019 Hospitalization History Kidney infection [facility] 2000 Goals Section No Information Health Concerns No Information MEDICAL EQUIPMENT No Information MENTAL STATUS No Information FUNCTIONAL STATUS No Information ASSESSMENTS No Information PLAN OF TREATMENT Medication Medication Name Sig Start Date Stop Date lamoTRIgine 200 MG TAKE ONE TABLET BY MOUTH EVERY DAY for 90 Escitalopram Oxalate 20 MG TAKE ONE TABLET BY MOUTH EVERY DAY fo r 90 Ferrous Sulfate 325 (65 Fe) MG 1 [...] Details Provider Name:Gela العلي, 2021-05-14 10:00:00 AM, [address] [place] [address], , [place], [place], [facility], Insurance Providers Payer Name Payer Address Payer Phone Insured Name Patient Relati onship to Insured Coverage Start Date Coverage End Date AETNA [facility] [address] [facility] [id number] MARISELA GAONA self
--- OUTSIDE RECORDS SUMMARY | 2021-05-08 08:23 | CCD | Continuity of Care Document ---
Author Author Dana LAGOS MD Organization Unknown Address [address] [place] [address] , [facility] [address] [place] [address] Phone [phone] Care Team Providers Care Chain Sales Consultant Name Role Phone Lillie Villatoro P.A.-C AUTM [phone] Problems Description No Information Available Social History [...] One Tablet By Mouth Every Day Unknown Immunizations Description No Information Available Vital Signs Date Vital Result Comment 02/18/2021 8:25am Body Temperature 97.6 F Results Description No Information Available Procedures Date Code Description Status 04/01/2021 69293 Office/Outpatient Established Lo w MDM 20-29 Min Completed 02/18/2021 35573 Office/Outpatient Established Lo w MDM 20-29 Min Completed 12/25/2020 88227 Office/Outpatient New Moderate M DM 45-59 Minutes Completed 12/25/2020 85861 Inject/Drain Arthrocentesis Kelle r Joint/Bursa/Ganglion Cyst Completed Medical Devices Description No Information Available Encounters Type Date Location Provider Dx Diagnosis Office Visit 04/01/2021 8:00a [facility] Del Lagos MD M75.41 Impingement syndrome of right shoulder G56.03 Carpal tunnel syndrome, bila teral upper limbs G56.22 Lesion of ulnar nerve, left upper limb Office Visit 02/18/2021 8:45a [facility] Del Lagos MD M75.41 Impingement syndrome of right shoulder G56.03 Carpal tunnel syndrome, bila teral upper limbs G56.22 Lesion of ulnar nerve, left upper limb Office Visit 12/25/2020 1:45p [facility] Del Lagos MD M54.12 Radiculopathy, cervical region M25.511 Pain in right shoulder Assessments Date Code Description Provider 04/01/2021 M75.41 Impingement syndrome of right sh [...] Lagos MD 12/25/2020 M54.12 Radiculopathy, cervical region S hayden Lagos MD 12/25/2020 M25.511 Pain in right shoulder Del hansen MD Plan of Treatment No Information Available Functional Status Description No Information Available Mental Status Description No Information Available Referrals Refer to Dr Reason for Referral Status Appt Date Fatoumata Vicente M.D. bilateral upper extremities, rule out cervical radiculopathy vs CTS (symptoms on the right index middle and ring finger) Closed [facility], [facility] [place] [id number] [phone]
--- OUTSIDE RECORDS SUMMARY | 2021-05-08 08:23 | CCD | Continuity of Care Document ---
Author Author Dana LAGOS MD Organization Unknown Address [address] [place] [address] , [facility] 2 [place] [address] Phone [phone] Care Team Providers Care Mechanical Engineering Technician Name Role Phone Lillie Villatoro P.A.-C AUTM Problems Description No Information Available Social History Type Date Description Comments Sex Unknown ETOH Use Rarely Tobacco Use Start: Unknown Patient is a current smoker, smo kes every day Recreational Drug Use Denies Drug Use Allergies and adverse reactions Description No Known Drug Allergies Medications Active [...] Available Procedures Date Code Description Status 04/15/2021 86269 Office/Outpatient Established Mo d MDM 30-39 Min Completed 04/01/2021 83714 Office/Outpatient Established Lo w MDM 20-29 Min Completed 02/18/2021 87323 Office/Outpatient Established Lo w MDM 20-29 Min Completed 12/25/2020 00968 Office/Outpatient New Moderate M DM 45-59 Minutes Completed 12/25/2020 21491 Inject/Drain Arthrocentesis Kelle r Joint/Bursa/Ganglion Cyst Completed Medical Devices Description No Information Available Encounters Type Date Location Provider Dx Diagnosis Office Visit 04/15/2021 10:45a [facility] Del Lagos MD G56.01 Carpal tunnel syndrome, right upper limb M75.41 Impingement syndrome of righ t shoulder M19.011 Primary osteoarthritis, righ t shoulder Office Visit 04/01/2021 8:00a [facility] Del Lagos MD M75.41 Impingement syndrome of right shoulder G56.03 Carpal tunnel syndrome, bila teral upper limbs G56.22 Lesion of ulnar nerve, left upper limb Office Visit 02/18/2021 8:45a [facility] Del Lagos MD M75.41 Impingement syndrome of right shoulder G56.03 Carpal tunnel syndrome, bila teral upper limbs G56.22 Lesion of ulnar nerve, left upper limb Office Visit 12/25/2020 1:45p [facility] Del Lagos MD M54.12 Radiculopathy, cervical region M25.511 Pain in right shoulder Assessments Date Code Description Provider 04/15/2021 G56.01 Carpal tunnel syndrome, right up per limb Del Lagos MD 04/15/2021 M75.41 Impingement syndrome of right sh rayo Lagos MD 04/15/2021 M19.011 Primary osteoarthritis, right sh rayo Lagos MD 04/01/2021 M75.41 [...] shoulder Del hansen MD Plan of Treatment Future Appointment(s):* 05/08/2021 10:15 am - Del Lagos MD at [facility] * 05/15/2021 10:30 am - Del Lagos MD at [facility] 04/15/2021 - Del Lagos MD* G56.01 Carpal tunnel syndrome, right upper limb * M75.41 Impingement syndrome of right shoulder * M19.011 Primary osteoarthritis, right shoulder Functional Status Description No Information Available Mental Status Description No Information Available Referrals Refer to Dr Reason for Referral Status Appt Date Fatoumata Vicente M.D. bilateral upper extremities, rule out cervical radiculopathy vs CTS (symptoms on the right index middle and ring finger) Closed [facility] Neurology, [facility] [place] [address] [phone]
--- OUTSIDE RECORDS SUMMARY | 2021-05-08 08:23 | CCD | Continuity of Care Document ---
Author Author Dana LAGOS MD Organization Unknown Address [address] [place] [address] , [facility] 2 [place] [address] Phone [phone] Care Team Providers Care Weatherization Operations Manager Name Role Phone Lillie Villatoro P.A.-C AUTM [phone] Problems Description No Information Available Social History [...] Information Available Procedures Date Code Description Status 02/18/2021 16659 Office/Outpatient Established Mo d MDM 30-39 Min Completed 12/25/2020 51554 Office/Outpatient New Moderate M DM 45-59 Minutes Completed 12/25/2020 85627 Inject/Drain Arthrocentesis Kelle r Joint/Bursa/Ganglion Cyst Completed Medical Devices Description No Information Available Encounters Type Date Location Provider Dx Diagnosis Office Visit 02/18/2021 8:45a [facility] Del Lagos MD M75.41 Impingement syndrome of right shoulder G56.01 Carpal tunnel syndrome, righ t upper limb Office Visit 12/25/2020 1:45p [facility] Del Lagos MD M54.12 Radiculopathy, cervical region M25.511 Pain in right shoulder Assessments Date Code Description Provider 02/18/2021 M75.41 Impingement syndrome of right sh oulder Del Lagos MD 02/18/2021 G56.01 Carpal tunnel syndrome, right up per limb Del Lagos MD 12/25/2020 M54.12 Radiculopathy, cervical region S hayden Lagos MD 12/25/2020 M25.511 Pain in right shoulder Del hansen MD Plan of Treatment 02/18/2021 - Del Lagos MD* M75.41 Impingement syndrome of right shoulder * G56.01 Carpal tunnel syndrome, right upper limb* New Orders:* Kemmerer Wrist Splint, Ordered: 02/18/21 Functional Status Description No Information Available Mental Status Description No Information Available Referrals Refer to Reason for Referral Status Appt Date Fatoumata Vicente M.D. bilateral upper extremities, rule out cervical radiculopathy vs CTS (symptoms on the right index middle and ring finger) Closed [facility] Neurology, [facility] [place] [address] [phone]
--- OUTSIDE RECORDS SUMMARY | 2021-05-08 08:23 | CCD | Continuity of Care Document ---
Author Author Dana LAGOS MD Organization Unknown Address [address] [place] [address] , [facility] 2 [place] [address] Phone [phone] Care Team Providers Care S3B Multi Sensor Operator Name Role Phone Lillie Villatoro P.A.-C AUTM [phone] Problems Description No Information Available Social History [...] Available Procedures Date Code Description Status 02/18/2021 09339 Office/Outpatient Established Lo w MDM 20-29 Min Completed 12/25/2020 21408 Office/Outpatient New Moderate M DM 45-59 Minutes Completed 12/25/2020 91405 Inject/Drain Arthrocentesis Kelle r Joint/Bursa/Ganglion Cyst Completed Medical Devices Description No Information Available Encounters Type Date Location Provider Dx Diagnosis Office Visit 02/18/2021 8:45a [facility] Del Lagos MD M75.41 Impingement syndrome of right shoulder G56.03 Carpal tunnel syndrome, bila teral upper limbs G56.22 Lesion of ulnar nerve, left upper limb Office Visit 12/25/2020 1:45p [facility] Del Lagos MD M54.12 Radiculopathy, cervical region M25.511 Pain in right shoulder Assessments Date Code Description Provider 02/18/2021 M75.41 Impingement syndrome of right sh oulder Del Lagos MD 02/18/2021 G56.03 Carpal tunnel syndrome, bilatera l upper limbs Del Lagos MD 02/18/2021 G56.22 Lesion of ulnar nerve, left uppe r limb Del Lagos MD 12/25/2020 M54.12 Radiculopathy, cervical region S hayden Lagos MD 12/25/2020 M25.511 Pain in right shoulder Del hansen MD Plan of Treatment Future Appointment(s):* 04/01/2021 8:00 am - Del Lagos MD at [facility] 02/18/2021 - Del Lagos MD* M75.41 Impingement syndrome of right shoulder * G56.03 Carpal tunnel syndrome, bilateral upper limbs * G56.22 Lesion of ulnar nerve, left upper limb Functional Status Description No Information Available Mental Status Description No Information Available Referrals Refer to Reason for Referral Status Appt Date Fatoumata Vicente M.D. bilateral upper extremities, rule out cervical radiculopathy vs CTS (symptoms on the right index middle and ring finger) Closed [facility] Neurology, [facility] [place] [address] [phone]
--- OUTSIDE RECORDS SUMMARY | 2021-05-08 08:23 | CCD ---
Author Author [facility] Organization [facility] Address Unknown Phone Unavailable Care Team Providers Care Single Pass Soil Stabilizer Operator Name Role Phone Lillie Villatoro Unavailable PROBLEMS Type Condition ICD9-CM Code JYD25-DS Code Onset Dates Condition S tatus W/U Status Risk SNOMED Code Notes Problem Hand pain, right M79.641 Active confirmed 53 403461 Problem History of gestational diabetes Z86.32 Active confi rmed 555273486 Problem Mood swings F39 Active confirmed 65268642 Problem Skin lesions L98.9 Active confirmed 6824890 1 Problem Plaque psoriasis L40.0 Active confirmed 200 941270 Problem Psoriasis L40.9 Active confirmed 2518490 Problem Moderate major depression F32.1 Active confirmed 724136 Problem Intractable chronic migraine without aura and without status migrainosus G43.719 Active confirmed 444369824 Problem Vitamin D deficiency E55.9 Active confirmed 49264368 Problem Anxiety F41.9 Active confirmed 49556572 Problem Mixed hyperlipidemia E78.2 Active confirmed 919731191 Problem Mood disorder F39 Active confirmed 898981 05 Problem Other chronic pain G89.29 Active confirmed 8 5689479 Problem Migraine G43.909 Active confirmed 42079378 Problem Macrocytosis D75.89 Active confirmed 6969927 00 Problem Cigarette nicotine dependence without complication F17.210 Active confirmed 89195395 Problem Tobacco use disorder Z72.0 Active confirmed 369051738 Problem Moderately severe depression F32.2 Active confirme d 763047047 Problem Hypoglycemia E16.2 Active confirmed 1121245 03 Problem Essential hypertension I10 Active confirmed 01876420 Problem Menstrual migraine without status migrainosus, n ot intractable G43.829 Active confirmed 11296284 ALLERGIES Allergen (clinical drug ingredient) Drug/Non Drug Allergy do cumented on EMR Reaction Allergy Type Onset Date Status PrednisoLONE Nausea/Vomiting Drug Allergy Activ e ENCOUNTERS from 1982 to 2021-04-08 Encounter Location Date Provider Diagnosis [facility] [address] [place] [address] [place] [address] Mar, Lillie Villatoro Dysuria R30.0 IMMUNIZATIONS Vaccine Route Administration Date Status Influenza [...] Education Language: Question Answer Notes Languages spoken: Arabic Alevism: Question Answer Notes Alevism 33 None No caodaism beliefs that would impact health care. Sexual [...] REASON FOR REFERRAL No Information VITAL SIGNS Weight 166 lbs lbs Mar, Weight-kg 75.3 kg Mar, Height 61 in Mar, BMI 31.36 kg/m2 Mar, Heart Rate 105 /min Mar, Respiratory Rate 18 /min Mar, Temperature 98.1 degrees Fahrenheit Mar, Oximetry 98%ra Mar, Blood pressure systolic 131 mm Hg Mar, Blood pressure diastolic 82 mm Hg Mar, MEDICATIONS Medication SIG (Take, Route, Frequency, Duration) Notes Start Da te End Date Status lamoTRIgine 200 MG TAKE ONE TABLET BY MOUTH EVERY DAY for 90 Active Glucometer as directed Apr, Active Alcohol Pads 70 % Twice daily PRN for 30 days Active Clotrimazole 1 % 1 application Externally Twice a day for 28 day(s) Active Blood Glucose Test - as directed In Vitro Twice daily as needed for 25 days Active Ondansetron 4 MG 1 tablet on the tongue and a llow to dissolve Orally Once a day for 30 day(s) Active Vitamin D3 125 MCG (5000 UT) as directed Orally Once a week for 90 da y(s) Active Folic Acid 1 MG 1 tablet Orally Once a day for 30 day(s) 2 0 Nov, 2020 Active Bactrim DS 800-160 MG 1 tablet Orally Twice a day for 3 days Mar, Active Multi Complete - Orally Active Escitalopram Oxalate 20 MG TAKE ONE TABLET BY MOUTH EVERY DAY for 90 Active traMADol HCl 50 MG 1 tablet as needed Orally twice a day as needed for 7 day(s) Jan, Active Lancets - Twice daily PRN for 30 days Active Pyridium 200 MG 1 tablet after meals Orally Three times a day fo r 2 day(s) Mar, Active Ferrous Sulfate 325 (65 Fe) MG 1 tablet Orally Once a day for 30 day(s) Jan, Active Vitamin B12 100 MCG as directed Orally Active Rizatriptan Benzoate 10 MG 1 tablet at onset of headac , november repeat dose after 2 hours Orally as needed for 30 Active Cyclobenzaprine HCl 5 MG 1 tablet as needed Orally three montse es a day for 5 days November, Not-Taking PROCEDURES No Information RESULTS No Results REASON FOR VISIT KIDNEY INFECTION? MEDICAL (GENERAL) HISTORY Type Description Date Medical [...] teeth pulled 01/2019 Hospitalization History Kidney infection [facility] 2000 Goals Section No Information Health Concerns No Information MEDICAL EQUIPMENT No Information MENTAL STATUS No Information FUNCTIONAL STATUS No Information ASSESSMENTS Encounter Date Diagnosis Assessment Notes Treatment Notes Treatm ent Clinical Notes Mar, Dysuria (ICD-10 - R30.0) Unable to do urine dipstick today in office as there are no reagent strips. Will send urinalysis and urine culture to the lab for further evaluation. Patient reports she has had numerous urinary tract infections in the past and that this feels similar. Given patient's symptoms and history, will treat. Discussed warning signs symptoms to seek further medical treatment for. Patient reports understanding and is in agreement with plan. PLAN OF TREATMENT Medication Medication Name Sig Start Date Stop Date Pyridium 200 MG 1 tablet after meals Orally Three times a day for 2 day(s) Mar, Bactrim DS 800-160 MG 1 tablet Orally Twice a day for 3 days Mar, Treatment Notes Assessment Notes Clinical Notes Dysuria Unable to do urine d ipstick today in office as there are no reagent strips. Will send urinalysis and urine culture to the lab for further evaluation. Patient reports she has had numerous urinary tract infections in the past and that this feels similar. Given patient's symptoms and history, will treat. Discussed warning signs symptoms to seek further medical treatment for. Patient reports understanding and is in agreement with plan. Treatment Notes Test Name Order Date URINE CULTURE 2021-03-14 UA URINALYSIS 2021-03-14 Next Appt Details prn Reason: Provider Name:Glea العلي, 2021-05-14 10:00:00 AM, [address] [facility], , [place], [place], [facility], Insurance Providers Payer Name Payer Address Payer Phone Insured Name Patient Relati onship to Insured Coverage Start Date Coverage End Date AETNA [facility] [address] [facility] [id number] MARISELA GAONA
--- OUTSIDE RECORDS SUMMARY | 2021-05-08 08:23 | CCD ---
Author Author [facility] [employer] Organization [facility] [employer] Address Unknown Phone Unavailable Care Team Providers Care Fish Skinning Machine Feeder Name Role Phone Lillie Villatoro Unavailable PROBLEMS ALLERGIES ENCOUNTERS from 1982 to 2021-02-10 IMMUNIZATIONS SOCIAL HISTORY REASON FOR REFERRAL No Information VITAL SIGNS MEDICATIONS PROCEDURES No Information RESULTS No Results REASON FOR VISIT MEDICAL (GENERAL) HISTORY Goals Section Health Concerns MEDICAL EQUIPMENT No Information MENTAL STATUS FUNCTIONAL STATUS ASSESSMENTS PLAN OF TREATMENT Insurance Providers
--- OUTSIDE RECORDS SUMMARY | 2021-05-08 08:23 | CCD | Continuity of Care Document ---
Author Author Dana LAGOS MD Organization Unknown Address [address] [place] [address] , [facility] [address] [place] [address] Phone [phone] Care Team Providers Care Rn Orthopaedic Name Role Phone Lillie Villatoro P.A.-C AUTM [phone] Problems Description No Information Available Social History [...] Available Procedures Date Code Description Status 04/01/2021 48537 Office/Outpatient Established Mo d MDM 30-39 Min Completed 02/18/2021 83029 Office/Outpatient Established Lo w MDM 20-29 Min Completed 12/25/2020 57040 Office/Outpatient New Moderate M DM 45-59 Minutes Completed 12/25/2020 96146 Inject/Drain Arthrocentesis Kelle r Joint/Bursa/Ganglion Cyst Completed Medical Devices Description No Information Available Encounters Type Date Location Provider Dx Diagnosis Office Visit 04/01/2021 8:00a [facility] Del Lagos MD M75.41 Impingement syndrome of right shoulder G56.03 Carpal tunnel syndrome, bila teral upper limbs G56.22 Lesion of ulnar nerve, left upper limb Office Visit 02/18/2021 8:45a [facility] Del Lagos MD M75.41 Impingement syndrome of right shoulder G56.03 Carpal tunnel syndrome, bila teral upper limbs G56.22 Lesion of ulnar nerve, left upper limb Office Visit 12/25/2020 1:45p [facility] Del Lagos MD M54.12 Radiculopathy, cervical [...] shoulder Del hansen MD Plan of Treatment 04/01/2021 - Del Lagos MD* M75.41 Impingement syndrome of right shoulder* New Xrays:* MRI Shoulder W/O Contrast Right, Ordered: 04/01/21 * G56.03 Carpal tunnel syndrome, bilateral upper limbs * G56.22 Lesion of ulnar nerve, left upper limb Functional Status Description No Information Available Mental Status Description No Information Available Referrals Refer to Reason for Referral Status Appt Date Fatoumata Vicente M.D. bilateral upper extremities, rule out cervical radiculopathy vs CTS (symptoms on the right index middle and ring finger) Closed [facility], [address] [place] [address] [phone]
--- OUTSIDE RECORDS SUMMARY | 2021-05-08 08:23 | CCD ---
Author Author [facility] [employer] Organization [facility] [employer] Address Unknown Phone Unavailable Care Team Providers Care Spring Coiling Machine Setter Name Role Phone Lillie Villatoro Unavailable PROBLEMS Type Condition ICD9-CM Code [id number] Code Onset Dates Condition S tatus W/U Status Risk SNOMED Code Notes Problem Hand pain, right M79.641 Active confirmed 53 787112 Problem History of gestational diabetes Z86.32 Active confi rmed 808536534 Problem Mood swings F39 Active confirmed 40487920 Problem Skin lesions L98.9 Active confirmed 6556581 1 Problem Plaque psoriasis L40.0 Active confirmed 200 948336 Problem Psoriasis L40.9 Active confirmed 2365762 Problem Moderate major depression F32.1 Active confirmed 987900 Problem Intractable chronic migraine without aura and without status migrainosus G43.719 Active confirmed 017499781 Problem Vitamin D deficiency E55.9 Active confirmed 43180232 Problem Anxiety F41.9 Active confirmed 53750516 Problem Mixed hyperlipidemia E78.2 Active confirmed 981599617 Problem Mood disorder F39 Active confirmed 412198 05 Problem Other chronic pain G89.29 Active confirmed 8 2860230 Problem Migraine G43.909 Active confirmed 37067462 Problem Macrocytosis D75.89 Active confirmed 0449936 00 Problem Cigarette nicotine dependence without complication F17.210 Active confirmed 76481808 Problem Tobacco use disorder Z72.0 Active confirmed 637116596 Problem Moderately severe depression F32.2 Active confirme d 582460439 Problem Hypoglycemia E16.2 Active confirmed 2878569 03 Problem Essential hypertension I10 Active confirmed 53001369 Problem Menstrual migraine without status migrainosus, n ot intractable G43.829 Active confirmed 32794935 ALLERGIES Allergen (clinical drug ingredient) Drug/Non Drug Allergy do cumented on EMR Reaction Allergy Type Onset Date Status PrednisoLONE Nausea/Vomiting Drug Allergy Activ e ENCOUNTERS from 1982 to 2021-02-15 Encounter Location Date Provider Diagnosis [facility] Aravind Wright [address] [place] [address] [place] [address] Feb, Lillie Villatoro IMMUNIZATIONS Vaccine Route Administration [...] Education Language: Question Answer Notes Languages spoken: Grenadian Baptist: Question Answer Notes Baptist 33 None No buddhism beliefs that would impact health care. Sexual [...] Information RESULTS No Results REASON FOR VISIT Note MEDICAL (GENERAL) HISTORY Type Description Date Medical [...] teeth pulled 01/2019 Hospitalization History Kidney infection [facility] 2000 Goals Section No Information Health [...] 7 day(s) Jan, Next Appt Details Provider Name:Glea العلي, 2021-05-14 10:00:00 AM, [address] [place] [address], , [place], [address], Insurance Providers Payer Name Payer Address Payer Phone Insured Name Patient Relati onship to Insured Coverage Start Date Coverage End Date AETNA [facility] [address] [facility] [id number] MARISELA GAONA self
--- OUTSIDE RECORDS SUMMARY | 2021-05-08 08:23 | CCD ---
Author Author [facility] Organization [facility] Address Unknown Phone Unavailable Care Team Providers Care Reverser Name Role Phone Lillie Villatoro Unavailable PROBLEMS Type Condition ICD9-CM Code OLC36-LC Code Onset Dates Condition S tatus W/U Status Risk SNOMED Code Notes Problem Hand pain, right M79.641 Active confirmed 53 201866 Problem History of gestational diabetes Z86.32 Active confi rmed 870522494 Problem Mood swings F39 Active confirmed 59558112 Problem Skin lesions L98.9 Active confirmed 7398903 1 Problem Plaque psoriasis L40.0 Active confirmed 200 093058 Problem Psoriasis L40.9 Active confirmed 4830058 Problem Moderate major depression F32.1 Active confirmed 723914 Problem Intractable chronic migraine without aura and without status migrainosus G43.719 Active confirmed 634075626 Problem Vitamin D deficiency E55.9 Active confirmed 66186402 Problem Anxiety F41.9 Active confirmed 10892891 Problem Mixed hyperlipidemia E78.2 Active confirmed 219486658 Problem Mood disorder F39 Active confirmed 767303 05 Problem Other chronic pain G89.29 Active confirmed 8 1523176 Problem Migraine G43.909 Active confirmed 79153834 Problem Macrocytosis D75.89 Active confirmed 9732322 00 Problem Cigarette nicotine dependence without complication F17.210 Active confirmed 21376279 Problem Tobacco use disorder Z72.0 Active confirmed 773678282 Problem Moderately severe depression F32.2 Active confirme d 926134196 Problem Hypoglycemia E16.2 Active confirmed 0362983 03 Problem Essential hypertension I10 Active confirmed 87111273 Problem Menstrual migraine without status migrainosus, n ot intractable G43.829 Active confirmed 62512858 ALLERGIES Allergen (clinical drug ingredient) Drug/Non Drug Allergy do cumented on EMR Reaction Allergy Type Onset Date Status PrednisoLONE Nausea/Vomiting Drug Allergy Activ e ENCOUNTERS from 1982 to 2021-02-14 Encounter Location Date Provider Diagnosis [address] [place] [address] Feb, Lillie Villatoro Iron deficiency E61. 1 IMMUNIZATIONS Vaccine Route Administration Date Status Influenza [...] Education Language: Question Answer Notes Languages spoken: Uzbek Zoroastrian: Question Answer Notes Zoroastrian 33 None No sikhism beliefs that would impact health care. Sexual [...] Information RESULTS No Results REASON FOR VISIT New med in [facility] MEDICAL (GENERAL) HISTORY Type Description Date Medical [...] teeth pulled 01/2019 Hospitalization History Kidney infection [facility] 2000 Goals Section No Information Health Concerns No Information MEDICAL EQUIPMENT No Information MENTAL STATUS No Information FUNCTIONAL STATUS No Information ASSESSMENTS Encounter Date Diagnosis Assessment Notes Treatment Notes Treatm ent Clinical Notes Feb, Iron deficiency (ICD-10 - E61.1) PLAN OF TREATMENT Medication Medication Name Sig Start Date Stop Date Ferrous Sulfate 325 (65 Fe) MG 1 tablet Orally Once a day fo r 30 day(s) 30 Julio, 2021 Rizatriptan Benzoate 10 MG 1 tablet at onset of headac he, may repeat dose after 2 hours Orally as needed for 30 traMADol HCl 50 MG 1 tablet as needed Orally twice a day as needed for 7 day(s) Jan, Next Appt Details Provider Name:Gela العلي, 2021-05-14 10:00:00 AM, [address] [place] [address], , [place], [place], [facility], Insurance Providers Payer Name Payer Address Payer Phone Insured Name Patient Relati onship to Insured Coverage Start Date Coverage End Date AETNA [facility] [address] [facility] [id number] MARISELA GAONA self
--- OUTSIDE RECORDS SUMMARY | 2021-05-08 08:23 | CCD ---
Author Author [facility] [employer] Organization [facility] Address Unknown Phone Unavailable Care Team Providers Care Detective Youth Bureau Name Role Phone Lillie Villatoro Unavailable PROBLEMS Type Condition ICD9-CM Code GQE87-LM Code Onset Dates Condition S tatus W/U Status Risk SNOMED Code Notes Problem Hand pain, right M79.641 Active confirmed 53 862424 Problem History of gestational diabetes Z86.32 Active confi rmed 971481758 Problem Mood swings F39 Active confirmed 04776211 Problem Skin lesions L98.9 Active confirmed 2124686 1 Problem Plaque psoriasis L40.0 Active confirmed 200 186478 Problem Psoriasis L40.9 Active confirmed 3213792 Problem Moderate major depression F32.1 Active confirmed 010628 Problem Intractable chronic migraine without aura and without status migrainosus G43.719 Active confirmed 262872563 Problem Vitamin D deficiency E55.9 Active confirmed 99847271 Problem Anxiety F41.9 Active confirmed 80965501 Problem Mixed hyperlipidemia E78.2 Active confirmed 494360887 Problem Mood disorder F39 Active confirmed 208724 05 Problem Other chronic pain G89.29 Active confirmed 8 0343757 Problem Migraine G43.909 Active confirmed 04825322 Problem Macrocytosis D75.89 Active confirmed 6317986 00 Problem Cigarette nicotine dependence without complication F17.210 Active confirmed 81302145 Problem Tobacco use disorder Z72.0 Active confirmed 774193046 Problem Moderately severe depression F32.2 Active confirme d 227715916 Problem Hypoglycemia E16.2 Active confirmed 6631216 03 Problem Essential hypertension I10 Active confirmed 69798658 Problem Menstrual migraine without status migrainosus, n ot intractable G43.829 Active confirmed 29446878 ALLERGIES Allergen (clinical drug ingredient) Drug/Non Drug Allergy do cumented on EMR Reaction Allergy Type Onset Date Status PrednisoLONE Nausea/Vomiting Drug Allergy Activ e ENCOUNTERS from 1982 to 2021-02-26 Encounter Location Date Provider Diagnosis [facility] [place] [phone] [place] [phone] Feb, 2021 iLllie Villatoro IMMUNIZATIONS Vaccine Route Administration Date Status [...] Education Language: Question Answer Notes Languages spoken: Ghanaian Pentecostalism: Question Answer Notes Pentecostalism 33 None No gnosticism beliefs that would impact health care. Sexual [...] Once a day for 30 day(s) 2 Nov, 2020 Active Ondansetron 4 MG 1 [...] Information RESULTS No Results REASON FOR VISIT SCRIPT MEDICAL (GENERAL) HISTORY Type Description Date Medical [...] teeth pulled 01/2019 Hospitalization History Kidney infection [facility] 2000 Goals Section No Information Health [...] Details Provider Name:Gela العلي, 2021-05-14 10:00:00 AM, [address] [place] [address], , [place], [place], [facility], Insurance Providers Payer Name Payer Address Payer Phone Insured Name Patient Relati onship to Insured Coverage Start Date Coverage End Date AETNA [facility] [place] [address] [facility] [id number] MARISELA GAONA self
--- OUTSIDE RECORDS SUMMARY | 2021-05-08 08:23 | CCD | Continuity of Care Document ---
Author Author Dana SIERRA M.D. Organization Unknown Address [address] [place] [address] Phone [phone] Care Team Providers Care Music Agent Name Role Phone Lillie Villatoro PA-C AUTM [phone] Problems Active Problems Provider Date Migraine Hattie Sierra M.D. Onset: 09/01/2016 Social History Type Date Description Comments Sex Unknown Tobacco Use Start: Unknown Patient is a current smoker, smo kes every day Allergies, Adverse Reactions, Alerts Active Allergies Reaction Severity Comments Date Prednisone nausea vomiting 09/01/2016 Medications Active Medications SIG Qnty Indications Ordering Provide r Date Emgality 120mg/ml Solution Auto-In ject dispense one 120mg sc injection once per month. 1ml Hattie Sierra M.D. 10/14/2018 Ondansetron 4mg Tablets Dispers take 1 tab every 8 hours as needed for nausea and vomiting. 10taelliott Sierra M.D. 10/14/2018 Rizatriptan Benzoate 5mg Tablets take one tab at the immediate onset of a migraine, may repeat in 1-2 hours, max 2 tabs in 24 hours, and 4 tabs in 7 days. 9hola Sierra M.D. 09/22/2018 Topiramate 50mg Tablets 1 by mouth twice a day 60hola Sierra M.D. 02/15/2018 Diazepam 5mg Tablets take 1 tab 30-60 minutes prior to mri. neon glass blower # [id number] 1hola warren M.D. 09/01/2016 Immunizations Description No Information Available Vital Signs Date Vital Result Comment 06/27/2019 2:56pm BP Systolic 110 mmHg BP Diastolic 72 mmHg Heart Rate 76 /min Respiratory Rate 12 /min Height 61 inches 5'1" Weight 165.00 lb BMI (Body Mass Index) 31.2 kg/m2 [place] Body Weight 105 lb 03/28/2019 3:27pm BP Systolic 114 mmHg BP Diastolic 76 mmHg Heart Rate 72 /min Respiratory Rate 12 /min Height 61 inches 5'1" Weight 165.00 lb BMI (Body Mass Index) 31.2 kg/m2 [place] Body Weight 105 lb Results Description No Information Available Procedures Date Code Description Status 02/06/2021 94105 Nerve Conduction 13+ Studies Com pleted 02/06/2021 33484 Needle Electromyography Complete , Five Or More Muscles Studied Completed 02/06/2021 32999 Needle Electromyography Complete , Five Or More Muscles Studied Completed Medical Devices Description No Information Available Encounters Description No Information Available Assessments Date Code Description Provider 02/06/2021 G56.01 Carpal tunnel syndrome, right up per limb Hattie Sierra M.D. 02/06/2021 M79.603 Pain in arm, unspecified Hattie rock M.D. 02/06/2021 G56.03 Carpal tunnel syndrome, bilatera l upper limbs Hattie Sierra M.D. 02/06/2021 M25.549 Pain in joints of unspecified menezes nd Hattie Sierra M.D. 02/06/2021 G56.02 Carpal tunnel syndrome, left upp er limb Hattie Sierra M.D. 02/06/2021 M54.2 Cervicalgia Hattie Sierra M.D. 02/06/2021 G56.22 Lesion of ulnar nerve, left uppe r limb Hattie Sierra M.D. Plan of Treatment No Information Available Functional Status Description No Information Available Mental Status Description No Information Available Referrals Description No Information Available
--- OUTSIDE RECORDS SUMMARY | 2021-05-08 08:24 | CCD ---
Author Author [facility] Organization [facility] Address Unknown Phone Unavailable Care Team Providers Care Director Targeted Marketing Name Role Phone Verna Allrde MD Unavailable Unavailable Verna Allred MD Unavailable Unavailable Verna Allred MD Unavailable Unavailable Verna Allred MD Unavailable Unavailable Verna Allred MD Unavailable Unavailable Verna Allred MD Unavailable Unavailable Verna Allred MD Unavailable Unavailable Verna Allred MD Unavailable Unavailable Verna Allred MD Unavailable Unavailable Verna Allred MD Unavailable Unavailable Verna Allred MD Unavailable Unavailable Verna Allred MD Unavailable Unavailable Verna Allred MD Unavailable Unavailable Verna Allred MD Unavailable Unavailable Verna Allred MD Unavailable Unavailable Verna Allred MD Unavailable Unavailable Verna Allred MD Unavailable Unavailable Verna Allred MD Unavailable Unavailable Verna Allred MD Unavailable Unavailable Verna Allred MD Unavailable Unavailable Mollison, Verna Mathis MD Unavailable Unavailable Mollison, Verna Mathis MD Unavailable Unavailable Mollison, Verna Mathis MD Unavailable Unavailable Mollison, Verna Mathis MD Unavailable Unavailable Mollison, Verna Mathis MD Unavailable Unavailable Mollison, Verna Mathis MD Unavailable Unavailable Mollison, Verna Mathis MD Unavailable Unavailable Mollison, Verna Mathis MD Unavailable Unavailable Mollison, Verna Mathis MD Unavailable Unavailable Mollison, Verna Mathis MD Unavailable Unavailable LAROCK, J RAMIRO MANAGED CARE NURSE Unavailable Unavailable LAROCK, J RAMIRO MANAGED CARE NURSE Unavailable Unavailable LAROCK, J RAMIRO MANAGED CARE NURSE Unavailable Unavailable LAROCK, J RAMIRO MANAGED CARE NURSE Unavailable Unavailable LAROCK, J RAMIRO MANAGED CARE NURSE Unavailable Unavailable LAROCK, J RAMIRO MANAGED CARE NURSE Unavailable Unavailable LAROCK, J RAMIRO MANAGED CARE NURSE Unavailable Unavailable LAROCK, J RAMIRO MANAGED CARE NURSE Unavailable Unavailable LAROCK, J RAMIRO MANAGED CARE NURSE Unavailable Unavailable LAROCK, J RAMIRO MANAGED CARE NURSE Unavailable Unavailable LAROCK, J RAMIRO MANAGED CARE NURSE Unavailable Unavailable LAROCK, J RAMIRO MANAGED CARE NURSE Unavailable Unavailable LAROCK, J RAMIRO MANAGED CARE NURSE Unavailable Unavailable LAROCK, J RAMIRO MANAGED CARE NURSE Unavailable Unavailable LAROCK, J RAMIRO MANAGED CARE NURSE Unavailable Unavailable LAROCK, J RAMIRO MANAGED CARE NURSE Unavailable Unavailable LAROCK, J RAMIRO MANAGED CARE NURSE Unavailable Unavailable LAROCK, J RAMIRO MANAGED CARE NURSE Unavailable Unavailable LAROCK, J RAMIRO MANAGED CARE NURSE Unavailable Unavailable LAROCK, J RAMIRO MANAGED CARE NURSE Unavailable Unavailable LAROCK, J RAMIRO MANAGED CARE NURSE Unavailable Unavailable LAROCK, J RAMIRO MANAGED CARE NURSE Unavailable Unavailable Villatoro, Emilylori Quiñonese PA Unavailable Unavailable Villatoro, Emilylori Quiñonese PA Unavailable Unavailable Villatoro, Emily Quiñonese PA Unavailable Unavailable Villatoro, Emily Quiñonese PA Unavailable Unavailable VillatoroEmilye PA Unavailable Unavailable Villatoro, Emily Quiñonese PA Unavailable Unavailable Irving, Emily Quiñonese PA Unavailable Unavailable Villatoro, Emily Quiñonese PA Unavailable Unavailable Villatoro, Emilylori Quiñonese PA Unavailable Unavailable Villatoro, Emily Quiñonese PA Unavailable Unavailable Villatoro, Emilylori Quiñnoese PA Unavailable Unavailable Villatoro, Emilylori Quiñonese PA Unavailable Unavailable Villatoro, Emilylori Quiñonese PA Unavailable Unavailable Villatoro, Emily Lillie PA Unavailable Unavailable Villatoro, Emily Lillie PA Unavailable Unavailable Villatoro, Emilylori Quiñonese PA Unavailable Unavailable Villatoro, Emilylori Quiñonese PA Unavailable Unavailable Villatoro, Emilylori Quiñonese PA Unavailable Unavailable Villatoro, Emilylori Quiñonese PA Unavailable Unavailable Villatoro, Emilylori Quiñonese PA Unavailable Unavailable Villatoro, Emily Lillie PA Unavailable Unavailable Villatoro, Emily Lillie PA Unavailable Unavailable Villatoro, Emily Lillie PA Unavailable Unavailable Villatoro, Emily Lillie PA Unavailable Unavailable Villatoro Emily Lillie PA Unavailable Unavailable Villatoro Emily Lillie PA Unavailable Unavailable Villatoro, Emily Lillie PA Unavailable Unavailable Villatoro, Emily Lillie PA Unavailable Unavailable Villatoro, Emily Lillie PA Unavailable Unavailable Villatoro Emily Lillie PA Unavailable Unavailable Villatoro, Emily Lillie PA Unavailable Unavailable Villatoro, Emily Lillie PA Unavailable Unavailable Villatoro, Emily Lillie PA Unavailable Unavailable Villatoro, Emily Lillie PA Unavailable Unavailable Villatoro, Emily Lillie PA Unavailable Unavailable Villatoro, Emily Lillie PA Unavailable Unavailable Villatoro, Emily Lillie PA Unavailable Unavailable Villatoro, Emily Lillie PA Unavailable Unavailable Villatoro, Emily Lillie PA Unavailable Unavailable Villatoro, Emily Lillie PA Unavailable Unavailable Villatoro, Emily Lillie PA Unavailable Unavailable Villatoro, Emily Lillie PA Unavailable Unavailable Villatoro, Emily Lillie PA Unavailable Unavailable Villatoro, Emily Lillie PA Unavailable Unavailable Villatoro, Emily Lillie PA Unavailable Unavailable Villatoro, Emily Lillie PA Unavailable Unavailable Villatoro, Emily Lillie PA Unavailable Unavailable Villatoro, Emily Lillie PA Unavailable Unavailable Villatoro, Emily Lillie PA Unavailable Unavailable JUSTO, MARYAM PA Unavailable Unavailable JUSTO, MARYAM PA Unavailable Unavailable JUSTO, MARYAM PA Unavailable Unavailable JUSTO, MARYAM PA Unavailable Unavailable JUSTO, MARYAM PA Unavailable Unavailable JUSTO, MARYAM PA Unavailable Unavailable JUSTO, MARYAM PA Unavailable Unavailable JUSTO, MARYAM PA Unavailable Unavailable JUSTO, MARYAM PA Unavailable Unavailable JUSTO, MARYAM PA Unavailable Unavailable JUSTO, MARYAM PA Unavailable Unavailable JUSTO, MARYAM PA Unavailable Unavailable JUSTO, MARYAM PA Unavailable Unavailable JUSTO, MARYAM PA Unavailable Unavailable JUSTO, MARYAM PA Unavailable Unavailable JUSTO, MARYAM PA Unavailable Unavailable JUSTO, MARYAM PA Unavailable Unavailable JUSTO, MARYAM PA Unavailable Unavailable JUSTO, MARYAM PA Unavailable Unavailable JUSTO, MARYAM PA Unavailable Unavailable JUSTO, MARYAM PA Unavailable Unavailable JUSTO, MARYAM PA Unavailable Unavailable JUSTO, MARYAM PA Unavailable Unavailable JUSTO, MARYAM PA Unavailable Unavailable JUSTO, MARYAM PA Unavailable Unavailable JUSTO, MARYAM PA Unavailable Unavailable JUSTO, MARYAM PA Unavailable Unavailable JUSTO, MARYAM PA Unavailable Unavailable JUSTO, MARYAM PA Unavailable Unavailable JUSTO, MARYAM PA Unavailable Unavailable JUSTO, MARYAM PA Unavailable Unavailable JUSTO, MARYAM PA Unavailable Unavailable JUSTO, MARYAM PA Unavailable Unavailable JUSTO, MARYAM PA Unavailable Unavailable JUSTO, MARYAM PA Unavailable Unavailable JUSTO, MARYAM PA Unavailable Unavailable BAYRON, L GRAHAM PA Unavailable Unavailable BAYRON, L GRAHAM PA Unavailable Unavailable BAYRON, L GRAHAM PA Unavailable Unavailable BAYRON, L GRAHAM PA Unavailable Unavailable BAYRON, L GRAHAM PA Unavailable Unavailable BAYRON, L GRAHAM PA Unavailable Unavailable BAYRON, L GRAHAM PA Unavailable Unavailable BAYRON, L GRAHAM PA Unavailable Unavailable BAYRON, L GRAHAM PA Unavailable Unavailable BAYRON, L GRAHAM PA Unavailable Unavailable BAYRON, L GRAHAM PA Unavailable Unavailable BAYRON, L GRAHAM PA Unavailable Unavailable BAYRON, L GRAHAM PA Unavailable Unavailable BAYRON, L GRAHAM PA Unavailable Unavailable BAYRON, L GRAHAM PA Unavailable Unavailable BAYRON, L GRAHAM PA Unavailable Unavailable BAYRON, L GRAHAM PA Unavailable Unavailable BAYRON, L GRAHAM PA Unavailable Unavailable BAYRON, L GRAHAM PA Unavailable Unavailable BAYRON, L GRAHAM PA Unavailable Unavailable BAYRON, L GRAHAM PA Unavailable Unavailable BAYRON, L GRAHAM PA Unavailable Unavailable HICKEYMARLYS Unavailable Unavailable Re-disclosure Warning The records that you are about to access may contain information from federally-assisted alcohol or drug abuse programs. If such information is present, then the following federally mandated warning applies: This information has been disclosed to you from records protected by federal confidentiality rules (42 CFR part 2). The federal rules prohibit you from making any further disclosure of this information unless further disclosure is expressly permitted by the written consent of the person to whom it pertains or as otherwise permitted by 42 CFR part 2. A general authorization for the release of medical or other information is NOT sufficient for this purpose. The Federal rules restrict any use of the information to criminally investigate or prosecute any alcohol or drug abuse patient.The records that you are about to access may contain highly sensitive health information, the redisclosure of which is protected by Article 27-F of the [facility] Public Health law. If you continue you may have access to information: Regarding HIV / AIDS; Provided by facilities licensed or operated by the [facility] Office of Mental Health; or Provided by the [facility] Office for People With Developmental Disabilities. If such information is present, then the following [facility] mandated warning applies: This information has been disclosed to you from confidential records which are protected by state law. State law prohibits you from making any further disclosure of this information without the specific written consent of the person to whom it pertains, or as otherwise permitted by law. Any unauthorized further disclosure in violation of state law may result in a fine or nursing home sentence or both. A general authorization for the release of medical or other information is NOT sufficient authorization for further disc losure. Family History Family Member Name Family Member Gender Family Member Status Date o f Status Description Data Source(s) Unknown Unknown Problem [facility] ([facility]) mother Unknown Female Problem [facility] ([facility] ) Encounters Encounter Providers Location Date Indications Data Source(s ) Outpatient Attender: Del Hurtado/Carly/Garry/Re indl 04/15/2021 10:45:00 AM EDT [facility] ([facility]) Outpatient Attender: RAMIRO GUZMAN NP 07/2020 09:56:21 AM EDT - 04/12/2021 11:08:05 AM EDT [facility] ([facility] ) Outpatient Attender: Del Hurtado/Carly/Garry/Re indl 04/01/2021 08:00:00 AM EDT [facility] ([facility]) Outpatient [address] [facility] [place] [address] 03/14/2021 12:00:00 AM EDT [facility] ([facility]) [place] [address] [facility] [place] [address] 02/26/2021 12:00:00 AM EDT [facility]1 ([facility] Unknown [address] [facility] [place] [address] 02/25/2021 12:00:00 AM EDT eCW1 ([facility]) Outpatient Attender: Del Hurtado/Carly/Garry/Re indl 02/18/2021 08:45:00 AM EDT [facility] ([facility]) Unknown [address] [facility] [place] [address] 02/13/2021 12:00:00 AM EDT eCW1 ([facility]) Unknown [address] [facility] [place] [address] 02/12/2021 12:00:00 AM EDT eCW1 ([facility]) Unknown [address] [facility] [place] [address] 02/12/2021 12:00:00 AM EDT eCW1 ([facility]) Unknown [address] [facility] [place] [address] 02/01/2021 12:00:00 AM EDT eCW1 ([facility]) Unknown [address] [facility] [place] [address] 01/31/2021 12:00:00 AM EDT eCW1 ([facility]) Unknown [address] [facility] [place] [address] 01/31/2021 12:00:00 AM EDT [facility]1 [facility] Outpatient Attender: Lillie Blankenship: Lillie JOSEPH 01/18/2021 03:00:00 PM EDT - 01/18/2021 03:00:00 PM EDT [facility] Unknown [address] [facility] [place] [address] 01/18/2021 12:00:00 AM EDT eCW1 ([facility]) Unknown [address] [facility] [place] [address] 01/17/2021 12:00:00 AM EDT [facility]CW1 ([facility] Unknown [address] [facility] [place] [address] 01/17/2021 12:00:00 AM EDT eCW1 ([facility]) Unknown [address] [facility] [place] [address] 01/16/2021 12:00:00 AM EDT eCW1 ([facility]) Unknown [address] [facility] [place] [address] 01/16/2021 12:00:00 AM EDT eCW1 ([facility]) [place] [address] [facility] [place] [address] 01/15/2021 12:00:00 AM EDT eCW1 ([facility]) Unknown [address] [facility] [place] [address] 01/15/2021 12:00:00 AM EDT eCW1 ([facility]) Unknown [address] [facility] [place] [address] 01/15/2021 12:00:00 AM EDT [facility] Unknown [address] [facility] [place] [address] 01/09/2021 12:00:00 AM EDT eCW1 ([facility]) Unknown [address] [facility] [place] [address] 01/08/2021 12:00:00 AM EDT eCW1 ([facility]) Unknown [address] [facility] [place] [address] 01/08/2021 12:00:00 AM EDT eCW1 ([facility]) Outpatient [address] [facility] [place] [address] 01/07/2021 12:00:00 AM EDT eCW1 ([facility]) Unknown [address] [facility] [place] [address] 01/02/2021 12:00:00 AM EDT [facility]1 [facility]) Outpatient Attender: Del Hurtado/Carly/Garry/Lenora hawkins 12/25/2020 01:45:00 PM EDT [facility] ([facility]) Unknown [address] [facility] [place] [address] 12/24/2020 12:00:00 AM EDT eCW1 ([facility]) Unknown [address] [facility] [place] [address] 12/21/2020 12:00:00 AM EDT eCW1 ([facility]) Emergency Attender: GRAHAM Blankenship: Homero JOSEPH EMERGENCY ROOM-ER 12/20/2020 12:33:00 PM EDT - 12/20/2020 01:53:00 PM EDT [facility] Patient discharged. Outpatient [address] [facility] [place] [address] 12/20/2020 12:00:00 AM EDT eCW1 ([facility]) Unknown [address] [facility] [place] [address] 12/19/2020 12:00:00 AM EDT eCW1 ([facility]) Unknown [address] [facility] [place] [address] 12/18/2020 12:00:00 AM EDT eCW1 ([facility]) Unknown [address] [facility] [place] [address] 12/17/2020 12:00:00 AM EDT eCW1 ([facility]) Unknown [address] [facility] [place] [address] 12/14/2020 12:00:00 AM EDT eCW1 ([facility]) Unknown [address] [facility] [place] [address] 12/13/2020 12:00:00 AM EDT eCW1 ([facility]) Unknown [address] [facility] [place] [address] 12/13/2020 12:00:00 AM EDT eCW1 ([facility]) Unknown [address] [facility] [place] [address] 12/05/2020 12:00:00 AM EDT eCW1 ([facility]) Outpatient [address] [facility] [place] [address] 11/29/2020 12:00:00 AM EDT eCW1 ([facility]) Outpatient [address] [facility] [place] [address] 11/26/2020 12:00:00 AM EDT eCW1 ([facility]) Unknown [address] [facility] [place] [address] 10/02/2020 12:00:00 AM EDT eCW1 ([facility]) Unknown [address] [facility] [place] [address] 10/01/2020 12:00:00 AM EDT eCW1 ([facility]) Unknown [address] [facility] [place] [address] 09/29/2020 12:00:00 AM EDT eCW1 ([facility]) Unknown [address] [facility] [place] [address] 09/27/2020 12:00:00 AM EDT eCW1 ([facility]) Unknown [address] [facility] [place] [address] 09/24/2020 12:00:00 AM EDT eCW1 ([facility]) Unknown [address] [facility] [place] [address] 09/14/2020 12:00:00 AM EST eCW1 ([facility]) Unknown [address] [facility] [place] [address] 09/13/2020 12:00:00 AM EST eCW1 ([facility]) Unknown [address] [facility] [place] [address] 09/13/2020 12:00:00 AM EST eCW1 ([facility]) Unknown [address] [facility] [place] [address] 09/12/2020 12:00:00 AM EST eCW1 ([facility]) Unknown [address] [facility] [place] [address] 09/12/2020 12:00:00 AM EST eCW1 ([facility]) Unknown [address] [facility] [place] [address] 09/12/2020 12:00:00 AM EST eCW1 ([facility]) Unknown [address] [facility] [place] [address] 09/11/2020 12:00:00 AM EST eCW1 ([facility]) Unknown [address] [facility] [place] [address] 09/10/2020 12:00:00 AM EST eCW1 ([facility]) Unknown [address] [facility] [place] [address] 09/05/2020 12:00:00 AM EST eCW1 ([facility]) [place] [address] [facility] [place] [address] 08/30/2020 12:00:00 AM EST eCW1 ([facility]) Outpatient Attender: MARYAM alvarado 08/23/2020 03:35:00 PM EST [facility] ([facility] Unknown [address] [facility] [place] [address] 08/21/2020 12:00:00 AM EST eCW1 ([facility]) Unknown [address] [facility] [place] [address] 08/21/2020 12:00:00 AM EST eCW1 ([facility]) Unknown [address] [facility] [place] [address] 08/20/2020 12:00:00 AM EST eCW1 ([facility]) Unknown [address] [facility] [place] [address] 08/20/2020 12:00:00 AM EST eCW1 ([facility]) Unknown [address] [facility] [place] [address] 08/15/2020 12:00:00 AM EST eCW1 ([facility]) Unknown [address] [facility] [place] [address] 08/15/2020 12:00:00 AM EST eCW1 ([facility]) Unknown [address] [facility] [place] [address] 08/02/2020 12:00:00 AM EST eCW1 ([facility]) Outpatient Attender: MARLYS SU 07/30/2020 01:00:00 PM [facility] Unknown [address] [facility] [place] [address] 07/18/2020 12:00:00 AM EST eCW1 ([facility]) Unknown [address] [facility] [place] [address] 07/17/2020 12:00:00 AM EST [facility]CW1 ([facility]) Unknown [address] [facility] [place] [address] 07/16/2020 12:00:00 AM EST eCW1 ([facility]) Unknown [address] [facility] [place] [address] 07/12/2020 12:00:00 AM EST [facility] Outpatient [address] [facility] [place] [address] 07/11/2020 12:00:00 AM EST eCW1 ([facility]) Unknown [address] [facility] [place] [address] 07/11/2020 12:00:00 AM EST eCW1 ([facility]) Unknown [address] [facility] [place] [address] 05/20/2020 12:00:00 AM EST [facility]CW1 ([facility]) Outpatient Attender: Lillie JOSEPH 12/2018 01:00:00 PM T - 11/15/2018 01:00:[address] [facility] Immunizations Vaccine Date Status Description Data Source(s) influenza, recombinant, quadrIvalent,injectable, prese rvative free 07/11/2020 03:21:00 PM EST completed eCW1 ([facility]) influenza, recombinant, quadrIvalent,injectable, prese rvative free 07/11/2020 03:21:00 PM EST completed eCW1 ([facility]) influenza, recombinant, quadrIvalent,injectable, prese rvative free 07/11/2020 03:21:00 PM EST completed eCW1 ([facility]) influenza, recombinant, quadrIvalent,injectable, prese rvative free 07/11/2020 03:21:00 PM EST completed eCW1 ([facility]) influenza, recombinant, quadrIvalent,injectable, prese rvative free 07/11/2020 03:21:00 PM EST completed eCW1 ([facility]) influenza, recombinant, quadrIvalent,injectable, prese rvative free 07/11/2020 03:21:00 PM EST completed eCW1 ([facility]) influenza, recombinant, quadrIvalent,injectable, prese rvative free 07/11/2020 03:21:00 PM EST completed eCW1 ([facility]) influenza, recombinant, quadrIvalent,injectable, prese rvative free 07/11/2020 03:21:00 PM EST completed eCW1 ([facility]) influenza, recombinant, quadrIvalent,injectable, prese rvative free 07/11/2020 03:21:00 PM EST completed eCW1 ([facility]) influenza, recombinant, quadrIvalent,injectable, prese rvative free 07/11/2020 03:21:00 PM EST completed eCW1 ([facility]) influenza, recombinant, quadrIvalent,injectable, prese rvative free 07/11/2020 03:21:00 PM EST completed eCW1 ([facility]) influenza, recombinant, quadrIvalent,injectable, prese rvative free 07/11/2020 03:21:00 PM EST completed eCW1 ([facility]) influenza, recombinant, quadrIvalent,injectable, prese rvative free 07/11/2020 03:21:00 PM EST completed eCW1 ([facility]) influenza, recombinant, quadrIvalent,injectable, prese rvative free 07/11/2020 03:21:00 PM EST completed eCW1 ([facility]) influenza, recombinant, quadrIvalent,injectable, prese rvative free 07/11/2020 03:21:00 PM EST completed eCW1 ([facility]) influenza, recombinant, quadrIvalent,injectable, prese rvative free 07/11/2020 03:21:00 PM EST completed eCW1 ([facility]) influenza, recombinant, quadrIvalent,injectable, prese rvative free 07/11/2020 03:21:00 PM EST completed eCW1 ([facility]) influenza, recombinant, quadrIvalent,injectable, prese rvative free 07/11/2020 03:21:00 PM EST completed eCW1 ([facility]) influenza, recombinant, quadrIvalent,injectable, prese rvative free 07/11/2020 03:21:00 PM EST completed eCW1 ([facility]) influenza, recombinant, quadrIvalent,injectable, prese rvative free 07/11/2020 03:21:00 PM EST completed eCW1 ([facility]) influenza, recombinant, quadrIvalent,injectable, prese rvative free 07/11/2020 03:21:00 PM EST completed eCW1 ([facility]) influenza, recombinant, quadrIvalent,injectable, prese rvative free 07/11/2020 03:21:00 PM EST completed eCW1 ([facility]) influenza, recombinant, quadrIvalent,injectable, prese rvative free 07/11/2020 03:21:00 PM EST completed eCW1 ([facility]) influenza, recombinant, quadrIvalent,injectable, prese rvative free 07/11/2020 03:21:00 PM EST completed eCW1 ([facility]) influenza, recombinant, quadrIvalent,injectable, prese rvative free 07/11/2020 03:21:00 PM EST completed eCW1 ([facility]) influenza, recombinant, quadrIvalent,injectable, prese rvative free 07/11/2020 03:21:00 PM EST completed eCW1 ([facility]) influenza, recombinant, quadrIvalent,injectable, prese rvative free 07/11/2020 03:21:00 PM EST completed eCW1 ([facility]) influenza, recombinant, quadrIvalent,injectable, prese rvative free 07/11/2020 03:21:00 PM EST completed eCW1 ([facility]) influenza, recombinant, quadrIvalent,injectable, prese rvative free 07/11/2020 03:21:00 PM EST completed eCW1 ([facility]) influenza, recombinant, quadrIvalent,injectable, prese rvative free 07/11/2020 03:21:00 PM EST completed eCW1 ([facility]) influenza, recombinant, quadrIvalent,injectable, prese rvative free 07/11/2020 03:21:00 PM EST completed eCW1 ([facility]) influenza, recombinant, quadrIvalent,injectable, prese rvative free 07/11/2020 03:21:00 PM EST completed eCW1 ([facility]) influenza, recombinant, quadrIvalent,injectable, prese rvative free 07/11/2020 03:21:00 PM EST completed eCW1 ([facility]) influenza, recombinant, quadrIvalent,injectable, prese rvative free 07/11/2020 03:21:00 PM EST completed eCW1 ([facility]) influenza, recombinant, quadrIvalent,injectable, prese rvative free 07/11/2020 03:21:00 PM EST completed eCW1 ([facility]) influenza, recombinant, quadrIvalent,injectable, prese rvative free 07/11/2020 03:21:00 PM EST completed eCW1 ([facility]) influenza, recombinant, quadrIvalent,injectable, prese rvative free 07/11/2020 03:21:00 PM EST completed eCW1 ([facility]) influenza, recombinant, quadrIvalent,injectable, prese rvative free 07/11/2020 03:21:00 PM EST completed eCW1 ([facility]) influenza, recombinant, quadrIvalent,injectable, prese rvative free 07/11/2020 03:21:00 PM EST completed eCW1 ([facility]) influenza, recombinant, quadrIvalent,injectable, prese rvative free 07/11/2020 03:21:00 PM EST completed eCW1 ([facility]) influenza, recombinant, quadrIvalent,injectable, prese rvative free 07/11/2020 03:21:00 PM EST completed eCW1 ([facility]) influenza, recombinant, quadrIvalent,injectable, prese rvative free 07/11/2020 03:21:00 PM EST completed eCW1 ([facility]) influenza, recombinant, quadrIvalent,injectable, prese rvative free 07/11/2020 03:21:00 PM EST completed eCW1 ([facility]) influenza, recombinant, quadrIvalent,injectable, prese rvative free 07/11/2020 03:21:00 PM EST completed eCW1 ([facility]) influenza, recombinant, quadrIvalent,injectable, prese rvative free 07/11/2020 03:21:00 PM EST completed eCW1 ([facility]) influenza, recombinant, quadrIvalent,injectable, prese rvative free 07/11/2020 03:21:00 PM EST completed eCW1 ([facility]) influenza, recombinant, quadrIvalent,injectable, prese rvative free 07/11/2020 03:21:00 PM EST completed eCW1 ([facility]) influenza, recombinant, quadrIvalent,injectable, prese rvative free 07/11/2020 03:21:00 PM EST completed eCW1 ([facility]) influenza, recombinant, quadrIvalent,injectable, prese rvative free 07/11/2020 03:21:00 PM EST completed eCW1 ([facility]) influenza, recombinant, quadrIvalent,injectable, prese rvative free 07/11/2020 03:21:00 PM EST completed eCW1 ([facility]) influenza, recombinant, quadrIvalent,injectable, prese rvative free 07/11/2020 03:21:00 PM EST completed eCW1 ([facility]) influenza, recombinant, quadrIvalent,injectable, prese rvative free 07/11/2020 03:21:00 PM EST completed eCW1 ([facility]) influenza, recombinant, quadrIvalent,injectable, prese rvative free 07/11/2020 03:21:00 PM EST completed eCW1 ([facility]) influenza, recombinant, quadrIvalent,injectable, prese rvative free 07/11/2020 03:21:00 PM EST completed eCW1 ([facility]) influenza, recombinant, quadrIvalent,injectable, prese rvative free 07/11/2020 03:21:00 PM EST completed eCW1 ([facility]) influenza, recombinant, quadrIvalent,injectable, prese rvative free 07/11/2020 03:21:00 PM EST completed eCW1 ([facility]) influenza, recombinant, quadrIvalent,injectable, prese rvative free 07/11/2020 03:21:00 PM EST completed eCW1 ([facility]) influenza, recombinant, quadrIvalent,injectable, prese rvative free 07/11/2020 03:21:00 PM EST completed eCW1 ([facility]) influenza, recombinant, quadrIvalent,injectable, prese rvative free 07/11/2020 03:21:00 PM EST completed eCW1 ([facility]) influenza, recombinant, quadrIvalent,injectable, prese rvative free 07/11/2020 03:21:00 PM EST completed eCW1 ([facility]) influenza, recombinant, quadrIvalent,injectable, prese rvative free 07/11/2020 03:21:00 PM EST completed eCW1 ([facility]) influenza, recombinant, quadrIvalent,injectable, prese rvative free 07/11/2020 03:21:00 PM EST completed eCW1 ([facility]) Medications Medication Brand Name Start Date Product Form Dose Route Admi nistrative Instructions Pharmacy Instructions Status Indications Reaction Description Data Source(s) Diazepam 2 MG Oral Tablet [Valium] Valium 04/05/2021 12:00:00 AM EDT ORAL completed MEDENT ([facility]) 2 mg 04/05/2021 12:00:00 AM EDT tablet 2 TAKE ONE TABLET BY MOUTH 1/2 HOUR PRIOR TO MRI, MAY TAKE 1 MORE TABLET 30 MINUTES AFTER IF NO EFFECT FROM FIRST MAXIMUM DAILY DOSE = 2 TABLETS TAKE ONE TABLET BY MOUTH 1/2 HOUR PRIOR TO MRI, MAY TAKE 1 MORE TABLET 30 MINUTES AFTER IF NO EFFECT FROM FIRST MAXIMUM DAILY DOSE = 2 TABLETS SOLD: 04/05/2021 [facility] 200 mg 03/14/2021 12:00:00 AM EDT tablet 6 TAKE ONE TABLET BY MOUTH THREE TIMES A DAY AFTER MEALS FOR 2 DAYS TAKE ONE TABLET BY MOUTH THREE TIMES A D AY AFTER MEALS FOR 2 DAYS SOLD: 03/14/2021 [facility] 800-160 mg 03/14/2021 12:00:00 AM EDT tablet 6 TAKE ONE TABLET BY MOUTH TWICE A DAY FOR 3 DAYS TAKE ONE TABLET BY MOUTH TWICE A DAY FOR 3 DAYS SOLD: 03/14/2021 [facility] Sulfamethoxazole 800 MG / Trimethoprim 1 60 MG Oral Tablet [Bactrim] Bactrim DS 800-160 MG Bactrim DS 800-160 MG 03/14/2021 12:00:00 AM EDT 1.0 {table t} active Bactrim DS 800-160 MG eCW1 ( [facility]) Phenazopyridine hydrochloride 200 MG Oral Tablet [Pyri dium] Pyridium 200 MG Pyridium 200 MG 03/14/2021 12:00:00 AM EDT 1.0 {tablet_after_meals} active Pyridium 200 MG eCW1 ([facility]) Escitalopram 20 MG Oral Tablet ESCITALOPRAM OXALATE 02/26/2021 1 2:00:00 AM EDT tablet 30 TAKE ONE TABLET BY MOUTH EVERY D AY TAKE ONE TABLET BY MOUTH EVERY DAY SOLD: 05/06/2021 [facility] Escitalopram 20 MG Oral Tablet ESCITALOPRAM OXALATE 02/26/2021 1 2:00:00 AM EDT tablet 30 TAKE ONE TABLET BY MOUTH EVERY D AY TAKE ONE TABLET BY MOUTH EVERY DAY SOLD: 04/04/2021 [facility] 200 mg 02/26/2021 12:00:00 AM EDT tablet 30 TAKE ONE TABLET BY MOUTH EVERY DAY TAKE ONE TABLET BY MOUTH EVERY DAY SOLD: 05/06/2021 [facility] Escitalopram 20 MG Oral Tablet ESCITALOPRAM OXALATE 02/26/2021 1 2:00:00 AM EDT tablet 30 TAKE ONE TABLET BY MOUTH EVERY D AY TAKE ONE TABLET BY MOUTH EVERY DAY SOLD: 02/28/2021 [facility] 200 mg 02/26/2021 12:00:00 AM EDT tablet 30 TAKE ONE TABLET BY MOUTH EVERY DAY TAKE ONE TABLET BY MOUTH EVERY DAY SOLD: 02/28/2021 [facility] 200 mg 02/26/2021 12:00:00 AM EDT tablet 30 TAKE ONE TABLET BY MOUTH EVERY DAY TAKE ONE TABLET BY MOUTH EVERY DAY SOLD: 04/04/2021 [facility] 325 mg (65 mg iron) 02/13/2021 12:00:00 AM EDT tablet 30 TAKE ONE TABLET BY MOUTH EVERY DAY TAKE ONE TABLET BY MOUTH EVERY DAY SOLD: 02/14/2021 [facility] ferrous sulfate 325 MG Oral Tablet Ferrous Sulfate 325 (65 Fe) MG Ferrous Sulfate 325 (65 Fe) MG 02/08/2021 12:00:00 AM EDT 1.0 {tablet} active Ferrous Sulfate 325 (65 Fe) MG eCW1 ([facility]) ferrous sulfate 325 MG Oral Tablet Ferrous Sulfate 325 (65 Fe) MG Ferrous Sulfate 325 (65 Fe) MG 02/08/2021 12:00:00 AM EDT 1.0 {tablet} active Ferrous Sulfate 325 (65 Fe) MG eCW1 ([facility]) ferrous sulfate 325 MG Oral Tablet Ferrous Sulfate 325 (65 Fe) MG Ferrous Sulfate 325 (65 Fe) MG 02/08/2021 12:00:00 AM EDT 1.0 {tablet} active Ferrous Sulfate 325 (65 Fe) MG eCW1 ([facility]) ferrous sulfate 325 MG Oral Tablet Ferrous Sulfate 325 (65 Fe) MG Ferrous Sulfate 325 (65 Fe) MG 02/08/2021 12:00:00 AM EDT 1.0 {tablet} active Ferrous Sulfate 325 (65 Fe) MG eCW1 ([facility]) ferrous sulfate 325 MG Oral Tablet Ferrous Sulfate 325 (65 Fe) MG Ferrous Sulfate 325 (65 Fe) MG 02/08/2021 12:00:00 AM EDT 1.0 {tablet} active Ferrous Sulfate 325 (65 Fe) MG eCW1 ([facility]) ferrous sulfate 325 MG Oral Tablet Ferrous Sulfate 325 (65 Fe) MG Ferrous Sulfate 325 (65 Fe) MG 02/08/2021 12:00:00 AM EDT 1.0 {tablet} active eCW1 ([facility]) ferrous sulfate 325 MG Oral Tablet Ferrous Sulfate 325 (65 Fe) MG Ferrous Sulfate 325 (65 Fe) MG 02/08/2021 12:00:00 AM EDT 1.0 {tablet} active Ferrous Sulfate 325 (65 Fe) MG eCW1 ([facility]) ferrous sulfate 325 MG Oral Tablet Ferrous Sulfate 325 (65 Fe) MG Ferrous Sulfate 325 (65 Fe) MG 02/08/2021 12:00:00 AM EDT 1.0 {tablet} active Ferrous Sulfate 325 (65 Fe) MG eCW1 ([facility]) ferrous sulfate 325 MG Oral Tablet Ferrous Sulfate 325 (65 Fe) MG Ferrous Sulfate 325 (65 Fe) MG 02/08/2021 12:00:00 AM EDT 1.0 {tablet} active Ferrous Sulfate 325 (65 Fe) MG eCW1 ([facility]) 50 mg 01/31/2021 12:00:00 AM EDT tablet 14 TAKE ONE TABLET BY MOUTH TWICE A DAY NEEDED MAXIMUM DAILY DOSE = 2 TABLETS TAKE ONE TABLET BY MOUTH TWICE A DAY NEEDED MAXIMUM DAILY DOSE = 2 TABLETS SOLD: 01/31/2021 [facility] 10 mg 01/28/2021 12:00:00 AM EDT tablet 9 TAKE 1 TABLET BY MOUTH AT ONSET OF HEADACHE, MAY REPEAT DOSE AFTER 2 HOURS NEEDED TAKE 1 TABLET BY MOUTH AT ONSET OF HEADACHE, MAY REPEAT DOSE AFTER 2 HOURS NEEDED SOLD: 01/28/2021 [facility] 10 mg 01/28/2021 12:00:00 AM EDT tablet 9 TAKE 1 TABLET BY MOUTH AT ONSET OF HEADACHE, MAY REPEAT DOSE AFTER 2 HOURS NEEDED TAKE 1 TABLET BY MOUTH AT ONSET OF HEADACHE, MAY REPEAT DOSE AFTER 2 HOURS NEEDED SOLD: 04/21/2021 [facility] 50 mg 01/21/2021 12:00:00 AM EDT tablet 14 TAKE ONE TABLET BY MOUTH TWICE A DAY NEEDED MAXIMUM DAILY DOSE = 2 TABLETS TAKE ONE TABLET BY MOUTH TWICE A DAY NEEDED MAXIMUM DAILY DOSE = 2 TABLETS SOLD: 01/21/2021 [facility] tramadol hydrochloride 50 MG Oral Tablet traMADol HCl 50 MG traMADol HCl 50 MG 01/17/2021 12:00:00 AM EDT 1.0 {tablet_as_needed} active traMADol HCl 50 MG eCW1 ([facility]) tramadol hydrochloride 50 MG Oral Tablet traMADol HCl 50 MG traMADol HCl 50 MG 01/17/2021 12:00:00 AM EDT 1.0 {tablet_as_needed} active traMADol HCl 50 MG eCW1 ([facility]) tramadol hydrochloride 50 MG Oral Tablet traMADol HCl 50 MG traMADol HCl 50 MG 01/17/2021 12:00:00 AM EDT 1.0 {tablet_as_needed} active traMADol HCl 50 MG eCW1 ([facility]) tramadol hydrochloride 50 MG Oral Tablet traMADol HCl 50 MG traMADol HCl 50 MG 01/17/2021 12:00:00 AM EDT 1.0 {tablet_as_needed} active traMADol HCl 50 MG eCW1 ([facility]) tramadol hydrochloride 50 MG Oral Tablet traMADol HCl 50 MG traMADol HCl 50 MG 01/17/2021 12:00:00 AM EDT 1.0 {tablet_as_needed} active traMADol HCl 50 MG eCW1 ([facility]) tramadol hydrochloride 50 MG Oral Tablet traMADol HCl 50 MG traMADol HCl 50 MG 01/17/2021 12:00:00 AM EDT 1.0 {tablet_as_needed} active traMADol HCl 50 MG eCW1 ([facility]) tramadol hydrochloride 50 MG Oral Tablet traMADol HCl 50 MG traMADol HCl 50 MG 01/17/2021 12:00:00 AM EDT 1.0 {tablet_as_needed} ac tive eCW1 ([facility]) tramadol hydrochloride 50 MG Oral Tablet traMADol HCl 50 MG traMADol HCl 50 MG 01/17/2021 12:00:00 AM EDT 1.0 {tablet_as_needed} active traMADol HCl 50 MG eCW1 ([facility]) tramadol hydrochloride 50 MG Oral Tablet traMADol HCl 50 MG traMADol HCl 50 MG 01/17/2021 12:00:00 AM EDT 1.0 {tablet_as_needed} active traMADol HCl 50 MG eCW1 ([facility]) tramadol hydrochloride 50 MG Oral Tablet traMADol HCl 50 MG traMADol HCl 50 MG 01/17/2021 12:00:00 AM EDT 1.0 {tablet_as_needed} active traMADol HCl 50 MG eCW1 ([facility]) tramadol hydrochloride 50 MG Oral Tablet traMADol HCl 50 MG traMADol HCl 50 MG 01/17/2021 12:00:00 AM EDT 1.0 {tablet_as_needed} active traMADol HCl 50 MG eCW1 ([facility]) tramadol hydrochloride 50 MG Oral Tablet traMADol HCl 50 MG traMADol HCl 50 MG 01/17/2021 12:00:00 AM EDT 1.0 {tablet_as_needed} active traMADol HCl 50 MG eCW1 ([facility]) tramadol hydrochloride 50 MG Oral Tablet traMADol HCl 50 MG traMADol HCl 50 MG 01/17/2021 12:00:00 AM EDT 1.0 {tablet_as_needed} active traMADol HCl 50 MG eCW1 ([facility]) tramadol hydrochloride 50 MG Oral Tablet traMADol HCl 50 MG traMADol HCl 50 MG 01/17/2021 12:00:00 AM EDT 1.0 {tablet_as_needed} active traMADol HCl 50 MG eCW1 ([facility]) tramadol hydrochloride 50 MG Oral Tablet traMADol HCl 50 MG traMADol HCl 50 MG 01/17/2021 12:00:00 AM EDT 1.0 {tablet_as_needed} active traMADol HCl 50 MG eCW1 ([facility]) tramadol hydrochloride 50 MG Oral Tablet traMADol HCl 50 MG traMADol HCl 50 MG 01/17/2021 12:00:00 AM EDT 1.0 {tablet_as_needed} active traMADol HCl 50 MG eCW1 ([facility]) tramadol hydrochloride 50 MG Oral Tablet traMADol HCl 50 MG traMADol HCl 50 MG 01/17/2021 12:00:00 AM EDT 1.0 {tablet_as_needed} active traMADol HCl 50 MG eCW1 ([facility]) tramadol hydrochloride 50 MG Oral Tablet traMADol HCl 50 MG traMADol HCl 50 MG 01/17/2021 12:00:00 AM EDT 1.0 {tablet_as_needed} active traMADol HCl 50 MG eCW1 ([facility]) tramadol hydrochloride 50 MG Oral Tablet traMADol HCl 50 MG traMADol HCl 50 MG 01/17/2021 12:00:00 AM EDT 1.0 {tablet_as_needed} active traMADol HCl 50 MG eCW1 ([facility]) Diclofenac Sodium 50 MG Delayed Release Oral Tablet Diclofen ac Sodium 50 MG 01/08/2021 12:00:00 AM EDT 1.0 {tablet_with_food} active Diclofenac Sodium 50 MG eCW1 ([facility]) Diclofenac Sodium 50 MG Delayed Release Oral Tablet Diclofen ac Sodium 50 MG 01/08/2021 12:00:00 AM EDT 1.0 {tablet_with_food} active Diclofenac Sodium 50 MG eCW1 ([facility]) Diclofenac Sodium 50 MG Delayed Release Oral Tablet Diclofen ac Sodium 50 MG 01/08/2021 12:00:00 AM EDT 1.0 {tablet_with_food} active Diclofenac Sodium 50 MG eCW1 ([facility]) Diclofenac Sodium 50 MG Delayed Release Oral Tablet Diclofen ac Sodium 50 MG 01/08/2021 12:00:00 AM EDT 1.0 {tablet_with_food} active Diclofenac Sodium 50 MG eCW1 ([facility]) 50 mg 01/08/2021 12:00:00 AM EDT tablet,delayed release (DR/EC) 20 TAKE ONE TABLET BY MOUTH TWICE A DAY WITH FOOD TAKE ONE TABLET BY MOUTH TWICE A DAY WIT H FOOD SOLD: 01/08/2021 [facility] meloxicam 7.5 MG Oral Tablet MELOXICAM 01/07/2021 12:00:00 AM EDT tabl et 30 TAKE ONE TABLET BY MOUTH EVERY DAY TAKE ONE TABLET BY MOUTH EVERY DAY SOLD: 01/07/2021 [facility] 50 mg 12/20/2020 12:00:00 AM EDT tablet 15 TAKE ONE TABLET BY MOUTH EVERY SIX HOURS NEEDED FOR PAIN AND STIFFNESS MAXIMUM DAILY DOSE = FOUR TABLETS TAKE ONE TABLET BY MOUTH EVERY SIX HOURS NEEDED FOR PAIN AND STIFFNESS MAXIMUM DAILY DOSE = FOUR TABLETS SOLD: 12/20/2020 [facility] Cyclobenzaprine hydrochloride 5 MG Oral Tablet Cyclobe nzaprine HCl 5 MG Cyclobenzaprine HCl 5 MG 11/29/2020 12:00:00 AM EDT 1.0 {tablet_as_ needed} suspended eCW1 ([facility]) Cyclobenzaprine hydrochloride 5 MG Oral Tablet Cyclobe nzaprine HCl 5 MG Cyclobenzaprine HCl 5 MG 11/29/2020 12:00:00 AM EDT 1.0 {tablet_as_ needed} active Cyclobenzaprine HCl 5 MG eCW1 ([facility]) Folic Acid 1 MG Oral Tablet Folic Acid 1 MG 11/29/2020 12:00:00 AM EDT 1.0 {tablet} active Folic Acid 1 MG eCW1 ([facility]) Cyclobenzaprine hydrochloride 5 MG Oral Tablet Cyclobe nzaprine HCl 5 MG Cyclobenzaprine HCl 5 MG 11/29/2020 12:00:00 AM EDT 1.0 {tablet_as_ needed} suspended Cyclobenzaprine HCl 5 MG eCW1 ([facility]) Folic Acid 1 MG Oral Tablet Folic Acid 1 MG 11/29/2020 12:00:00 AM EDT 1.0 {tablet} active Folic Acid 1 MG eCW1 ([facility]) Folic Acid 1 MG Oral Tablet Folic Acid 1 MG 11/29/2020 12:00:00 AM EDT 1.0 {tablet} active Folic Acid 1 MG eCW1 ([facility]) Folic Acid 1 MG Oral Tablet Folic Acid 1 MG 11/29/2020 12:00:00 AM EDT 1.0 {tablet} active Folic Acid 1 MG eCW1 ([facility]) Folic Acid 1 MG Oral Tablet Folic Acid 1 MG 11/29/2020 12:00:00 AM EDT 1.0 {tablet} active Folic Acid 1 MG eCW1 ([facility]) Folic Acid 1 MG Oral Tablet Folic Acid 1 MG 11/29/2020 12:00:00 AM EDT 1.0 {tablet} active Folic Acid 1 MG eCW1 ([facility]) Cyclobenzaprine hydrochloride 5 MG Oral Tablet Cyclobe nzaprine HCl 5 MG Cyclobenzaprine HCl 5 MG 11/29/2020 12:00:00 AM EDT 1.0 {tablet_as_ needed} suspended Cyclobenzaprine HCl 5 MG eCW1 ([facility]) Cyclobenzaprine hydrochloride 5 MG Oral Tablet Cyclobe nzaprine HCl 5 MG Cyclobenzaprine HCl 5 MG 11/29/2020 12:00:00 AM EDT 1.0 {tablet_as_ needed} active Cyclobenzaprine HCl 5 MG eCW1 ([facility]) Folic Acid 1 MG Oral Tablet Folic Acid 1 MG 11/29/2020 12:00:00 AM EDT 1.0 {tablet} active Folic Acid 1 MG eCW1 ([facility]) Folic Acid 1 MG Oral Tablet Folic Acid 1 MG 11/29/2020 12:00:00 AM EDT 1.0 {tablet} active Folic Acid 1 MG eCW1 ([facility]) Cyclobenzaprine hydrochloride 5 MG Oral Tablet Cyclobe nzaprine HCl 5 MG Cyclobenzaprine HCl 5 MG 11/29/2020 12:00:00 AM EDT 1.0 {tablet_as_ needed} suspended Cyclobenzaprine HCl 5 MG eCW1 ([facility]) Cyclobenzaprine hydrochloride 5 MG Oral Tablet Cyclobe nzaprine HCl 5 MG Cyclobenzaprine HCl 5 MG 11/29/2020 12:00:00 AM EDT 1.0 {tablet_as_ needed} suspended Cyclobenzaprine HCl 5 MG eCW1 ([facility]) Cyclobenzaprine hydrochloride 5 MG Oral Tablet Cyclobe nzaprine HCl 5 MG Cyclobenzaprine HCl 5 MG 11/29/2020 12:00:00 AM EDT 1.0 {tablet_as_ needed} suspended Cyclobenzaprine HCl 5 MG eCW1 ([facility]) Cyclobenzaprine hydrochloride 5 MG Oral Tablet Cyclobe nzaprine HCl 5 MG Cyclobenzaprine HCl 5 MG 11/29/2020 12:00:00 AM EDT 1.0 {tablet_as_ needed} suspended Cyclobenzaprine HCl 5 MG eCW1 ([facility]) Cyclobenzaprine hydrochloride 5 MG Oral Tablet Cyclobe nzaprine HCl 5 MG Cyclobenzaprine HCl 5 MG 11/29/2020 12:00:00 AM EDT 1.0 {tablet_as_ needed} suspended Cyclobenzaprine HCl 5 MG eCW1 ([facility]) Cyclobenzaprine hydrochloride 5 MG Oral Tablet Cyclobe nzaprine HCl 5 MG Cyclobenzaprine HCl 5 MG 11/29/2020 12:00:00 AM EDT 1.0 {tablet_as_ needed} suspended Cyclobenzaprine HCl 5 MG eCW1 ([facility]) Cyclobenzaprine hydrochloride 5 MG Oral Tablet Cyclobe nzaprine HCl 5 MG Cyclobenzaprine HCl 5 MG 11/29/2020 12:00:00 AM EDT 1.0 {tablet_as_ needed} active Cyclobenzaprine HCl 5 MG eCW1 ([facility]) Cyclobenzaprine hydrochloride 5 MG Oral Tablet Cyclobe nzaprine HCl 5 MG Cyclobenzaprine HCl 5 MG 11/29/2020 12:00:00 AM EDT 1.0 {tablet_as_ needed} suspended Cyclobenzaprine HCl 5 MG eCW1 ([facility]) Folic Acid 1 MG Oral Tablet Folic Acid 1 MG 11/29/2020 12:00:00 AM EDT 1.0 {tablet} active Folic Acid 1 MG eCW1 ([facility]) Cyclobenzaprine hydrochloride 5 MG Oral Tablet Cyclobe nzaprine HCl 5 MG Cyclobenzaprine HCl 5 MG 11/29/2020 12:00:00 AM EDT 1.0 {tablet_as_ needed} suspended Cyclobenzaprine HCl 5 MG eCW1 ([facility]) Cyclobenzaprine hydrochloride 5 MG Oral Tablet Cyclobe nzaprine HCl 5 MG Cyclobenzaprine HCl 5 MG 11/29/2020 12:00:00 AM EDT 1.0 {tablet_as_ needed} active Cyclobenzaprine HCl 5 MG eCW1 ([facility]) Folic Acid 1 MG Oral Tablet Folic Acid 1 MG 11/29/2020 12:00:00 AM EDT 1.0 {tablet} active Folic Acid 1 MG eCW1 ([facility]) Cyclobenzaprine hydrochloride 5 MG Oral Tablet Cyclobe nzaprine HCl 5 MG Cyclobenzaprine HCl 5 MG 11/29/2020 12:00:00 AM EDT 1.0 {tablet_as_ needed} suspended Cyclobenzaprine HCl 5 MG eCW1 ([facility]) Folic Acid 1 MG Oral Tablet Folic Acid 1 MG 11/29/2020 12:00:00 AM EDT 1.0 {tablet} active Folic Acid 1 MG eCW1 ([facility]) Folic Acid 1 MG Oral Tablet Folic Acid 1 MG 11/29/2020 12:00:00 AM EDT 1.0 {tablet} active Folic Acid 1 MG eCW1 ([facility]) Folic Acid 1 MG Oral Tablet Folic Acid 1 MG 11/29/2020 12:00:00 AM EDT 1.0 {tablet} active Folic Acid 1 MG eCW1 ([facility]) Cyclobenzaprine hydrochloride 5 MG Oral Tablet Cyclobe nzaprine HCl 5 MG Cyclobenzaprine HCl 5 MG 11/29/2020 12:00:00 AM EDT 1.0 {tablet_as_ needed} active Cyclobenzaprine HCl 5 MG eCW1 ([facility]) Folic Acid 1 MG Oral Tablet Folic Acid 1 MG 11/29/2020 12:00:00 AM EDT 1.0 {tablet} active Folic Acid 1 MG eCW1 ([facility]) Folic Acid 1 MG Oral Tablet Folic Acid 1 MG 11/29/2020 12:00:00 AM EDT 1.0 {tablet} active Folic Acid 1 MG eCW1 ([facility]) Cyclobenzaprine hydrochloride 5 MG Oral Tablet Cyclobe nzaprine HCl 5 MG Cyclobenzaprine HCl 5 MG 11/29/2020 12:00:00 AM EDT 1.0 {tablet_as_ needed} suspended Cyclobenzaprine HCl 5 MG eCW1 ([facility]) Cyclobenzaprine hydrochloride 5 MG Oral Tablet Cyclobe nzaprine HCl 5 MG Cyclobenzaprine HCl 5 MG 11/29/2020 12:00:00 AM EDT 1.0 {tablet_as_ needed} active Cyclobenzaprine HCl 5 MG eCW1 ([facility]) Folic Acid 1 MG Oral Tablet Folic Acid 1 MG 11/29/2020 12:00:00 AM EDT 1.0 {tablet} active Folic Acid 1 MG eCW1 ([facility]) Folic Acid 1 MG Oral Tablet Folic Acid 1 MG 11/29/2020 12:00:00 AM EDT 1.0 {tablet} active Folic Acid 1 MG eCW1 ([facility]) Folic Acid 1 MG Oral Tablet Folic Acid 1 MG 11/29/2020 12:00:00 AM EDT 1.0 {tablet} active Folic Acid 1 MG eCW1 ([facility]) Folic Acid 1 MG Oral Tablet Folic Acid 1 MG 11/29/2020 12:00:00 AM EDT 1.0 {tablet} active Folic Acid 1 MG eCW1 ([facility]) Folic Acid 1 MG Oral Tablet Folic Acid 1 MG 11/29/2020 12:00:00 AM EDT 1.0 {tablet} active Folic Acid 1 MG eCW1 ([facility]) Cyclobenzaprine hydrochloride 5 MG Oral Tablet Cyclobe nzaprine HCl 5 MG Cyclobenzaprine HCl 5 MG 11/29/2020 12:00:00 AM EDT 1.0 {tablet_as_ needed} suspended Cyclobenzaprine HCl 5 MG eCW1 ([facility]) Cyclobenzaprine hydrochloride 5 MG Oral Tablet Cyclobe nzaprine HCl 5 MG Cyclobenzaprine HCl 5 MG 11/29/2020 12:00:00 AM EDT 1.0 {tablet_as_ needed} active Cyclobenzaprine HCl 5 MG eCW1 ([facility]) Folic Acid 1 MG Oral Tablet Folic Acid 1 MG 11/29/2020 12:00:00 AM EDT 1.0 {tablet} active Folic Acid 1 MG eCW1 ([facility]) Folic Acid 1 MG Oral Tablet Folic Acid 1 MG 11/29/2020 12:00:00 AM EDT 1.0 {tablet} active Folic Acid 1 MG eCW1 ([facility]) Cyclobenzaprine hydrochloride 5 MG Oral Tablet Cyclobe nzaprine HCl 5 MG Cyclobenzaprine HCl 5 MG 11/29/2020 12:00:00 AM EDT 1.0 {tablet_as_ needed} suspended Cyclobenzaprine HCl 5 MG eCW1 ([facility]) Cyclobenzaprine hydrochloride 5 MG Oral Tablet Cyclobe nzaprine HCl 5 MG Cyclobenzaprine HCl 5 MG 11/29/2020 12:00:00 AM EDT 1.0 {tablet_as_ needed} suspended Cyclobenzaprine HCl 5 MG eCW1 ([facility]) Cyclobenzaprine hydrochloride 5 MG Oral Tablet Cyclobe nzaprine HCl 5 MG Cyclobenzaprine HCl 5 MG 11/29/2020 12:00:00 AM EDT 1.0 {tablet_as_ needed} active Cyclobenzaprine HCl 5 MG eCW1 ([facility]) Folic Acid 1 MG Oral Tablet Folic Acid 1 MG 11/29/2020 12:00:00 AM EDT 1.0 {tablet} active Folic Acid 1 MG eCW1 ([facility]) Cyclobenzaprine hydrochloride 5 MG Oral Tablet Cyclobe nzaprine HCl 5 MG Cyclobenzaprine HCl 5 MG 11/29/2020 12:00:00 AM EDT 1.0 {tablet_as_ needed} active Cyclobenzaprine HCl 5 MG eCW1 ([facility]) Folic Acid 1 MG Oral Tablet Folic Acid 1 MG 11/29/2020 12:00:00 AM EDT 1.0 {tablet} active Folic Acid 1 MG eCW1 ([facility]) Folic Acid 1 MG Oral Tablet Folic Acid 1 MG 11/29/2020 12:00:00 AM EDT 1.0 {tablet} active Folic Acid 1 MG eCW1 ([facility]) Folic Acid 1 MG Oral Tablet Folic Acid 1 MG 11/29/2020 12:00:00 AM EDT 1.0 {tablet} active Folic Acid 1 MG eCW1 ([facility]) Cyclobenzaprine hydrochloride 5 MG Oral Tablet Cyclobe nzaprine HCl 5 MG Cyclobenzaprine HCl 5 MG 11/29/2020 12:00:00 AM EDT 1.0 {tablet_as_ needed} suspended Cyclobenzaprine HCl 5 MG eCW1 ([facility]) Cyclobenzaprine hydrochloride 5 MG Oral Tablet Cyclobe nzaprine HCl 5 MG Cyclobenzaprine HCl 5 MG 11/29/2020 12:00:00 AM EDT 1.0 {tablet_as_ needed} suspended Cyclobenzaprine HCl 5 MG eCW1 ([facility]) Folic Acid 1 MG Oral Tablet Folic Acid 1 MG 11/29/2020 12:00:00 AM EDT 1.0 {tablet} active eCW1 ([facility]) Folic Acid 1 MG Oral Tablet Folic Acid 1 MG 11/29/2020 12:00:00 AM EDT 1.0 {tablet} active Folic Acid 1 MG eCW1 ([facility]) Folic Acid 1 MG Oral Tablet Folic Acid 1 MG 11/29/2020 12:00:00 AM EDT 1.0 {tablet} active Folic Acid 1 MG eCW1 ([facility]) Folic Acid 1 MG Oral Tablet Folic Acid 1 MG 11/29/2020 12:00:00 AM EDT 1.0 {tablet} active Folic Acid 1 MG eCW1 ([facility]) Cyclobenzaprine hydrochloride 5 MG Oral Tablet Cyclobe nzaprine HCl 5 MG Cyclobenzaprine HCl 5 MG 11/29/2020 12:00:00 AM EDT 1.0 {tablet_as_ needed} suspended Cyclobenzaprine HCl 5 MG eCW1 ([facility]) Folic Acid 1 MG Oral Tablet Folic Acid 1 MG 11/29/2020 12:00:00 AM EDT 1.0 {tablet} active Folic Acid 1 MG eCW1 ([facility]) Cyclobenzaprine hydrochloride 5 MG Oral Tablet Cyclobe nzaprine HCl 5 MG Cyclobenzaprine HCl 5 MG 11/29/2020 12:00:00 AM EDT 1.0 {tablet_as_ needed} suspended Cyclobenzaprine HCl 5 MG eCW1 ([facility]) Cyclobenzaprine hydrochloride 5 MG Oral Tablet Cyclobe nzaprine HCl 5 MG Cyclobenzaprine HCl 5 MG 11/29/2020 12:00:00 AM EDT 1.0 {tablet_as_ needed} active Cyclobenzaprine HCl 5 MG eCW1 ([facility]) Folic Acid 1 MG Oral Tablet Folic Acid 1 MG 11/29/2020 12:00:00 AM EDT 1.0 {tablet} active Folic Acid 1 MG eCW1 ([facility]) Cyclobenzaprine hydrochloride 5 MG Oral Tablet Cyclobe nzaprine HCl 5 MG Cyclobenzaprine HCl 5 MG 11/29/2020 12:00:00 AM EDT 1.0 {tablet_as_ needed} suspended Cyclobenzaprine HCl 5 MG eCW1 ([facility]) Cyclobenzaprine hydrochloride 5 MG Oral Tablet Cyclobe nzaprine HCl 5 MG Cyclobenzaprine HCl 5 MG 11/29/2020 12:00:00 AM EDT 1.0 {tablet_as_ needed} active Cyclobenzaprine HCl 5 MG eCW1 ([facility]) Cyclobenzaprine hydrochloride 5 MG Oral Tablet Cyclobe nzaprine HCl 5 MG Cyclobenzaprine HCl 5 MG 11/29/2020 12:00:00 AM EDT 1.0 {tablet_as_ needed} suspended Cyclobenzaprine HCl 5 MG eCW1 ([facility]) Folic Acid 1 MG Oral Tablet Folic Acid 1 MG 11/29/2020 12:00:00 AM EDT 1.0 {tablet} active Folic Acid 1 MG eCW1 ([facility]) Folic Acid 1 MG Oral Tablet Folic Acid 1 MG 11/29/2020 12:00:00 AM EDT 1.0 {tablet} active Folic Acid 1 MG eCW1 ([facility]) Cyclobenzaprine hydrochloride 5 MG Oral Tablet Cyclobe nzaprine HCl 5 MG Cyclobenzaprine HCl 5 MG 11/29/2020 12:00:00 AM EDT 1.0 {tablet_as_ needed} suspended Cyclobenzaprine HCl 5 MG eCW1 ([facility]) 1,250 mcg (50,000 unit) 09/10/2020 12:00:00 AM EST capsule 12 TAKE ONE CAPSULE BY MOUTH ONCE WEEKLY DIRECTED TAKE ONE CAPSULE BY MOUTH ONCE WEEKLY DIRECTED SOLD: 09/10/2020 [facility] BLOOD-GLUCOSE METER 09/06/2020 12:00:00 AM EST misc 1 DIRECTED DIRECTED SOLD: 09/06/2020 [facility] BLOOD SUGAR DIAGNOSTIC 09/06/2020 12:00:00 AM EST strip 50 TEST TWO TIMES A DAY NEEDED DIRECTED TEST TWO TIMES A DAY NEEDED DIRECTED SOLD: 09/06/2020 [facility] 10 mg 09/06/2020 12:00:00 AM EST tablet 9 TAKE ONE TABLET BY MOUTH AT ONST OF HEADACHE MAY REPEAT DOSE AFTER 2 HOURS IF NEEDED TAKE ONE TABLET BY MOUTH AT ONST OF HEADACHE MAY REPEAT DOSE AFTER 2 HOURS IF NEEDED SOLD: 12/27/2020 [facility] 33 gauge 09/06/2020 12:00:00 AM EST misc 100 USE ONE TWICE A DAY USE ONE TWICE A DAY SOLD: 09/06/2020 [facility] ALCOHOL ANTISEPTIC PADS 09/06/2020 12:00:00 AM EST pads, med icated 100 USE 1 TWO TIMES A DAY USE 1 TWO TIMES A DAY SOLD: 09/06/2020 [facility] 10 mg 09/06/2020 12:00:00 AM EST tablet 9 TAKE ONE TABLET BY MOUTH AT ONST OF HEADACHE MAY REPEAT DOSE AFTER 2 HOURS IF NEEDED TAKE ONE TABLET BY MOUTH AT ONST OF HEADACHE MAY REPEAT DOSE AFTER 2 HOURS IF NEEDED SOLD: 09/06/2020 [facility] 10 mg 09/06/2020 12:00:00 AM EST tablet 9 TAKE ONE TABLET BY MOUTH AT ONST OF HEADACHE MAY REPEAT DOSE AFTER 2 HOURS IF NEEDED TAKE ONE TABLET BY MOUTH AT ONST OF HEADACHE MAY REPEAT DOSE AFTER 2 HOURS IF NEEDED SOLD: 10/11/2020 [facility] rizatriptan 10 MG Oral Tablet Rizatriptan Benzoate 10 MG Rizatriptan Benzoate 10 MG 09/05/2020 12:00:00 AM EST active Rizatriptan Benzoate 10 MG eCW1 ([facility]) rizatriptan 10 MG Oral Tablet Rizatriptan Benzoate 10 MG Rizatriptan Benzoate 10 MG 09/05/2020 12:00:00 AM EST active Rizatriptan Benzoate 10 MG eCW1 ([facility]) rizatriptan 10 MG Oral Tablet Rizatriptan Benzoate 10 MG Rizatriptan Benzoate 10 MG 09/05/2020 12:00:00 AM EST active Rizatriptan Benzoate 10 MG eCW1 ([facility]) rizatriptan 10 MG Oral Tablet Rizatriptan Benzoate 10 MG Rizatriptan Benzoate 10 MG 09/05/2020 12:00:00 AM EST active Rizatriptan Benzoate 10 MG eCW1 ([facility]) rizatriptan 10 MG Oral Tablet Rizatriptan Benzoate 10 MG Rizatriptan Benzoate 10 MG 09/05/2020 12:00:00 AM EST active Rizatriptan Benzoate 10 MG eCW1 ([facility]) rizatriptan 10 MG Oral Tablet Rizatriptan Benzoate 10 MG Rizatriptan Benzoate 10 MG 09/05/2020 12:00:00 AM EST active Rizatriptan Benzoate 10 MG eCW1 ([facility]) rizatriptan 10 MG Oral Tablet Rizatriptan Benzoate 10 MG Rizatriptan Benzoate 10 MG 09/05/2020 12:00:00 AM EST active Rizatriptan Benzoate 10 MG eCW1 ([facility]) rizatriptan 10 MG Oral Tablet Rizatriptan Benzoate 10 MG Rizatriptan Benzoate 10 MG 09/05/2020 12:00:00 AM EST active Rizatriptan Benzoate 10 MG eCW1 ([facility]) rizatriptan 10 MG Oral Tablet Rizatriptan Benzoate 10 MG Rizatriptan Benzoate 10 MG 09/05/2020 12:00:00 AM EST active Rizatriptan Benzoate 10 MG eCW1 ([facility]) rizatriptan 10 MG Oral Tablet Rizatriptan Benzoate 10 MG Rizatriptan Benzoate 10 MG 09/05/2020 12:00:00 AM EST active Rizatriptan Benzoate 10 MG eCW1 ([facility]) rizatriptan 10 MG Oral Tablet Rizatriptan Benzoate 10 MG Rizatriptan Benzoate 10 MG 09/05/2020 12:00:00 AM EST active Rizatriptan Benzoate 10 MG eCW1 ([facility]) rizatriptan 10 MG Oral Tablet Rizatriptan Benzoate 10 MG Rizatriptan Benzoate 10 MG 09/05/2020 12:00:00 AM EST active Rizatriptan Benzoate 10 MG eCW1 ([facility]) rizatriptan 10 MG Oral Tablet Rizatriptan Benzoate 10 MG Rizatriptan Benzoate 10 MG 09/05/2020 12:00:00 AM EST active Rizatriptan Benzoate 10 MG eCW1 ([facility]) rizatriptan 10 MG Oral Tablet Rizatriptan Benzoate 10 MG Rizatriptan Benzoate 10 MG 09/05/2020 12:00:00 AM EST active Rizatriptan Benzoate 10 MG eCW1 ([facility]) rizatriptan 10 MG Oral Tablet Rizatriptan Benzoate 10 MG Rizatriptan Benzoate 10 MG 09/05/2020 12:00:00 AM EST active Rizatriptan Benzoate 10 MG eCW1 ([facility]) rizatriptan 10 MG Oral Tablet Rizatriptan Benzoate 10 MG Rizatriptan Benzoate 10 MG 09/05/2020 12:00:00 AM EST active Rizatriptan Benzoate 10 MG eCW1 ([facility]) rizatriptan 10 MG Oral Tablet Rizatriptan Benzoate 10 MG Rizatriptan Benzoate 10 MG 09/05/2020 12:00:00 AM EST active Rizatriptan Benzoate 10 MG eCW1 ([facility]) rizatriptan 10 MG Oral Tablet Rizatriptan Benzoate 10 MG Rizatriptan Benzoate 10 MG 09/05/2020 12:00:00 AM EST active Rizatriptan Benzoate 10 MG eCW1 ([facility]) rizatriptan 10 MG Oral Tablet Rizatriptan Benzoate 10 MG Rizatriptan Benzoate 10 MG 09/05/2020 12:00:00 AM EST active Rizatriptan Benzoate 10 MG eCW1 ([facility]) rizatriptan 10 MG Oral Tablet Rizatriptan Benzoate 10 MG Rizatriptan Benzoate 10 MG 09/05/2020 12:00:00 AM EST active Rizatriptan Benzoate 10 MG eCW1 ([facility]) rizatriptan 10 MG Oral Tablet Rizatriptan Benzoate 10 MG Rizatriptan Benzoate 10 MG 09/05/2020 12:00:00 AM EST active Rizatriptan Benzoate 10 MG eCW1 ([facility]) rizatriptan 10 MG Oral Tablet Rizatriptan Benzoate 10 MG Rizatriptan Benzoate 10 MG 09/05/2020 12:00:00 AM EST active Rizatriptan Benzoate 10 MG eCW1 ([facility]) rizatriptan 10 MG Oral Tablet Rizatriptan Benzoate 10 MG Rizatriptan Benzoate 10 MG 09/05/2020 12:00:00 AM EST active Rizatriptan Benzoate 10 MG eCW1 ([facility]) rizatriptan 10 MG Oral Tablet Rizatriptan Benzoate 10 MG Rizatriptan Benzoate 10 MG 09/05/2020 12:00:00 AM EST active Rizatriptan Benzoate 10 MG eCW1 ([facility]) rizatriptan 10 MG Oral Tablet Rizatriptan Benzoate 10 MG Rizatriptan Benzoate 10 MG 09/05/2020 12:00:00 AM EST active Rizatriptan Benzoate 10 MG eCW1 ([facility]) rizatriptan 10 MG Oral Tablet Rizatriptan Benzoate 10 MG Rizatriptan Benzoate 10 MG 09/05/2020 12:00:00 AM EST active Rizatriptan Benzoate 10 MG eCW1 ([facility]) rizatriptan 10 MG Oral Tablet Rizatriptan Benzoate 10 MG Rizatriptan Benzoate 10 MG 09/05/2020 12:00:00 AM EST active Rizatriptan Benzoate 10 MG eCW1 ([facility]) rizatriptan 10 MG Oral Tablet Rizatriptan Benzoate 10 MG Rizatriptan Benzoate 10 MG 09/05/2020 12:00:00 AM EST active Rizatriptan Benzoate 10 MG eCW1 ([facility]) rizatriptan 10 MG Oral Tablet Rizatriptan Benzoate 10 MG Rizatriptan Benzoate 10 MG 09/05/2020 12:00:00 AM EST active Rizatriptan Benzoate 10 MG eCW1 ([facility]) rizatriptan 10 MG Oral Tablet Rizatriptan Benzoate 10 MG Rizatriptan Benzoate 10 MG 09/05/2020 12:00:00 AM EST active Rizatriptan Benzoate 10 MG eCW1 ([facility]) rizatriptan 10 MG Oral Tablet Rizatriptan Benzoate 10 MG Rizatriptan Benzoate 10 MG 09/05/2020 12:00:00 AM EST active Rizatriptan Benzoate 10 MG eCW1 ([facility]) rizatriptan 10 MG Oral Tablet Rizatriptan Benzoate 10 MG Rizatriptan Benzoate 10 MG 09/05/2020 12:00:00 AM EST active Rizatriptan Benzoate 10 MG eCW1 ([facility]) rizatriptan 10 MG Oral Tablet Rizatriptan Benzoate 10 MG Rizatriptan Benzoate 10 MG 09/05/2020 12:00:00 AM EST active Rizatriptan Benzoate 10 MG eCW1 ([facility]) rizatriptan 10 MG Oral Tablet Rizatriptan Benzoate 10 MG Rizatriptan Benzoate 10 MG 09/05/2020 12:00:00 AM EST active Rizatriptan Benzoate 10 MG eCW1 ([facility]) rizatriptan 10 MG Oral Tablet Rizatriptan Benzoate 10 MG Rizatriptan Benzoate 10 MG 09/05/2020 12:00:00 AM EST active Rizatriptan Benzoate 10 MG eCW1 ([facility]) rizatriptan 10 MG Oral Tablet Rizatriptan Benzoate 10 MG Rizatriptan Benzoate 10 MG 09/05/2020 12:00:00 AM EST active Rizatriptan Benzoate 10 MG eCW1 ([facility]) rizatriptan 10 MG Oral Tablet Rizatriptan Benzoate 10 MG Rizatriptan Benzoate 10 MG 09/05/2020 12:00:00 AM EST active Rizatriptan Benzoate 10 MG eCW1 ([facility]) Cholecalciferol 55974 UNT Oral Capsule Vitamin D3 1.25 MG (83694 UT) Vitamin D3 1.25 MG (47276 UT) 08/30/2020 12:00:00 AM EST active Vitamin D3 1.25 MG (60169 UT) eCW1 ([facility]) Cholecalciferol 01736 UNT Oral Capsule Vitamin D3 1.25 MG (50420 UT) Vitamin D3 1.25 MG (18742 UT) 08/30/2020 12:00:00 AM EST active Vitamin D3 1.25 MG (66089 UT) [facility] ([facility]) Cholecalciferol 15080 UNT Oral Capsule Vitamin D3 1.25 MG (99838 UT) Vitamin D3 1.25 MG (09590 UT) 08/30/2020 12:00:00 AM EST active Vitamin D3 1.25 MG (60543 UT) [facility] ([facility]) Cholecalciferol 27892 UNT Oral Capsule Vitamin D3 1.25 MG (71922 UT) Vitamin D3 1.25 MG (16954 UT) 08/30/2020 12:00:00 AM EST active Vitamin D3 1.25 MG (76428 UT) [facility] ([facility]) Cholecalciferol 24183 UNT Oral Capsule Vitamin D3 1.25 MG (25633 UT) Vitamin D3 1.25 MG (51175 UT) 08/30/2020 12:00:00 AM EST active Vitamin D3 1.25 MG (88900 UT) [facility] ([facility]) Cholecalciferol 59045 UNT Oral Capsule Vitamin D3 1.25 MG (38002 UT) Vitamin D3 1.25 MG (56931 UT) 08/30/2020 12:00:00 AM EST active Vitamin D3 1.25 MG (12269 UT) [facility] ([facility]) Cholecalciferol 52979 UNT Oral Capsule Vitamin D3 1.25 MG (98145 UT) Vitamin D3 1.25 MG (94480 UT) 08/30/2020 12:00:00 AM EST active Vitamin D3 1.25 MG (91174 UT) [facility] ([facility]) Cholecalciferol 00042 UNT Oral Capsule Vitamin D3 1.25 MG (04326 UT) Vitamin D3 1.25 MG (35971 UT) 08/30/2020 12:00:00 AM EST active Vitamin D3 1.25 MG (40289 UT) [facility] ([facility]) Cholecalciferol 96509 UNT Oral Capsule Vitamin D3 1.25 MG (92060 UT) Vitamin D3 1.25 MG (90873 UT) 08/30/2020 12:00:00 AM EST active Vitamin D3 1.25 MG (53838 UT) [facility] ([facility]) Cholecalciferol 87878 UNT Oral Capsule Vitamin D3 1.25 MG (70036 UT) Vitamin D3 1.25 MG (34169 UT) 08/30/2020 12:00:00 AM EST active Vitamin D3 1.25 MG (69422 UT) [facility] ([facility]) Vitamin D3 125 MCG (5000 UT) Vitamin D3 125 MCG (5000 UT) 12:00:00 AM EST active Vitamin D3 125 MC G (5000 UT) [facility] ([facility]) Cholecalciferol 70994 UNT Oral Capsule Vitamin D3 1.25 MG (32281 UT) Vitamin D3 1.25 MG (94171 UT) 08/30/2020 12:00:00 AM EST active Vitamin D3 1.25 MG (62568 UT) [facility] ([facility]) Cholecalciferol 00653 UNT Oral Capsule Vitamin D3 1.25 MG (60645 UT) Vitamin D3 1.25 MG (36334 UT) 08/30/2020 12:00:00 AM EST active Vitamin D3 1.25 MG (06791 UT) [facility] ([facility]) Cholecalciferol 88037 UNT Oral Capsule Vitamin D3 1.25 MG (67174 UT) Vitamin D3 1.25 MG (61956 UT) 08/30/2020 12:00:00 AM EST active Vitamin D3 1.25 MG (02190 UT) [facility] ([facility]) Cholecalciferol 79314 UNT Oral Capsule Vitamin D3 1.25 MG (43198 UT) Vitamin D3 1.25 MG (93170 UT) 08/30/2020 12:00:00 AM EST active Vitamin D3 1.25 MG (52950 UT) [facility] ([facility]) Escitalopram 20 MG Oral Tablet ESCITALOPRAM OXALATE 08/22/2020 1 2:00:00 AM EST tablet 30 TAKE ONE TABLET BY MOUTH EVERY D AY TAKE ONE TABLET BY MOUTH EVERY DAY SOLD: 09/24/2020 [facility] Escitalopram 20 MG Oral Tablet ESCITALOPRAM OXALATE 08/22/2020 1 2:00:00 AM EST tablet 30 TAKE ONE TABLET BY MOUTH EVERY D AY TAKE ONE TABLET BY MOUTH EVERY DAY SOLD: 08/23/2020 [facility] 200 mg 08/22/2020 12:00:00 AM EST tablet 30 TAKE ONE TABLET BY MOUTH EVERY DAY TAKE ONE TABLET BY MOUTH EVERY DAY SOLD: 01/21/2021 [facility] 200 mg 08/22/2020 12:00:00 AM EST tablet 30 TAKE ONE TABLET BY MOUTH EVERY DAY TAKE ONE TABLET BY MOUTH EVERY DAY SOLD: 12/24/2020 [facility] Escitalopram 20 MG Oral Tablet ESCITALOPRAM OXALATE 08/22/2020 1 2:00:00 AM EST tablet 30 TAKE ONE TABLET BY MOUTH EVERY D AY TAKE ONE TABLET BY MOUTH EVERY DAY SOLD: 01/21/2021 [facility] 200 mg 08/22/2020 12:00:00 AM EST tablet 30 TAKE ONE TABLET BY MOUTH EVERY DAY TAKE ONE TABLET BY MOUTH EVERY DAY SOLD: 11/22/2020 [facility] 200 mg 08/22/2020 12:00:00 AM EST tablet 30 TAKE ONE TABLET BY MOUTH EVERY DAY TAKE ONE TABLET BY MOUTH EVERY DAY SOLD: 10/22/2020 [facility] Escitalopram 20 MG Oral Tablet ESCITALOPRAM OXALATE 08/22/2020 1 2:00:00 AM EST tablet 30 TAKE ONE TABLET BY MOUTH EVERY D AY TAKE ONE TABLET BY MOUTH EVERY DAY SOLD: 12/24/2020 [facility] Escitalopram 20 MG Oral Tablet ESCITALOPRAM OXALATE 08/22/2020 1 2:00:00 AM EST tablet 30 TAKE ONE TABLET BY MOUTH EVERY D AY TAKE ONE TABLET BY MOUTH EVERY DAY SOLD: 11/22/2020 [facility] 200 mg 08/22/2020 12:00:00 AM EST tablet 30 TAKE ONE TABLET BY MOUTH EVERY DAY TAKE ONE TABLET BY MOUTH EVERY DAY SOLD: 09/24/2020 [facility] Escitalopram 20 MG Oral Tablet ESCITALOPRAM OXALATE 08/22/2020 1 2:00:00 AM EST tablet 30 TAKE ONE TABLET BY MOUTH EVERY D AY TAKE ONE TABLET BY MOUTH EVERY DAY SOLD: 10/22/2020 [facility] 200 mg 08/22/2020 12:00:00 AM EST tablet 30 TAKE ONE TABLET BY MOUTH EVERY DAY TAKE ONE TABLET BY MOUTH EVERY DAY SOLD: 08/23/2020 [facility] 5 mg 08/16/2020 12:00:00 AM EST tablet 9 TAKE ONE TABLET BY MOUTH AT IMMEDIATE ONSET OF MIGRAINE, MAY REPEAT IN 1 TO 2 HOURS MAX=2TABS/24 HOURS AND MAX=4TABS/7DAYS TAKE ONE TABLET BY MOUTH AT IMMEDIATE ON SET OF MIGRAINE, MAY REPEAT IN 1 TO 2 HOURS MAX=2TABS/24 HOURS AND MAX=4TABS/7DAYS SOLD: 08/16/2020 [facility] 200 mg 07/18/2020 12:00:00 AM EST tablet 30 TAKE ONE TABLET BY MOUTH EVERY DAY TAKE ONE TABLET BY MOUTH EVERY DAY SOLD: 07/21/2020 [facility] frovatriptan 2.5 MG Oral Tablet FROVATRIPTAN SUCCINATE 07/12 12:00:00 AM EST tablet 9 TAKE ONE TABLET BY MOUTH TWICE A DAY START 2 DAYS PRIOR TO TYPICAL ONSET OF MENSTRUAL MIGRAINE AND CONTINUE FOR A TOTAL OF 5 DAYS DIRECTED TAKE ONE TABLET BY MOUTH TWICE A DAY STA RT 2 DAYS PRIOR TO TYPICAL ONSET OF MENSTRUAL MIGRAINE AND CONTINUE FOR A TOTAL OF 5 DAYS DIRECTED SOLD: 07/16/2020 [facility] 1 % 07/11/2020 12:00:00 AM EST cream 45 APPLY TWO TIMES A DAY APPLY TWO TIMES A DAY SOLD: 07/11/2020 [facility] Clotrimazole 10 MG/ML Topical Cream Clotrimazole 1 % Clotrim azole 1 % 07/11/2020 12:00:00 AM EST 1.0 {application} active Clotrimazole 1 % eCW1 ([facility]) Amoxicillin 875 MG / Clavulanate 125 MG Oral Tablet Amoxicillin-Pot Clavulanate 875-125 MG Amoxicillin-Pot Clavulanate 875-125 MG 07/11/2020 12:00:00 AM ES T 1.0 {tablet} active Amoxicillin-Pot Cla vulanate 875-125 MG eCW1 ([facility]) Amoxicillin 875 MG / Clavulanate 125 MG Oral Tablet Amoxicillin-Pot Clavulanate 875-125 MG Amoxicillin-Pot Clavulanate 875-125 MG 07/11/2020 12:00:00 AM ES T 1.0 {tablet} active Amoxicillin-Pot Cla vulanate 875-125 MG eCW1 ([facility]) Amoxicillin 875 MG / Clavulanate 125 MG Oral Tablet Amoxicillin-Pot Clavulanate 875-125 MG Amoxicillin-Pot Clavulanate 875-125 MG 07/11/2020 12:00:00 AM ES T 1.0 {tablet} active Amoxicillin-Pot Cla vulanate 875-125 MG eCW1 ([facility]) Amoxicillin 875 MG / Clavulanate 125 MG Oral Tablet Amoxicillin-Pot Clavulanate 875-125 MG Amoxicillin-Pot Clavulanate 875-125 MG 07/11/2020 12:00:00 AM ES T 1.0 {tablet} active Amoxicillin-Pot Cla vulanate 875-125 MG eCW1 ([facility]) Clotrimazole 10 MG/ML Topical Cream Clotrimazole 1 % Clotrim azole 1 % 07/11/2020 12:00:00 AM EST 1.0 {application} active Clotrimazole 1 % eCW1 ([facility]) Amoxicillin 875 MG / Clavulanate 125 MG Oral Tablet Amoxicillin-Pot Clavulanate 875-125 MG Amoxicillin-Pot Clavulanate 875-125 MG 07/11/2020 12:00:00 AM ES T 1.0 {tablet} active Amoxicillin-Pot Cla vulanate 875-125 MG eCW1 ([facility]) Amoxicillin 875 MG / Clavulanate 125 MG Oral Tablet Amoxicillin-Pot Clavulanate 875-125 MG Amoxicillin-Pot Clavulanate 875-125 MG 07/11/2020 12:00:00 AM ES T 1.0 {tablet} active Amoxicillin-Pot Cla vulanate 875-125 MG eCW1 ([facility]) frovatriptan 2.5 MG Oral Tablet Frovatriptan Succinate 2.5 MG Frovatriptan Succinate 2.5 MG 07/11/2020 12:00:00 AM EST a ctive Frovatriptan Succinate 2.5 MG eCW1 ([facility]) frovatriptan 2.5 MG Oral Tablet Frovatriptan Succinate 2.5 MG Frovatriptan Succinate 2.5 MG 07/11/2020 12:00:00 AM EST a ctive Frovatriptan Succinate 2.5 MG eCW1 ([facility]) Clotrimazole 10 MG/ML Topical Cream Clotrimazole 1 % Clotrim azole 1 % 07/11/2020 12:00:00 AM EST 1.0 {application} active Clotrimazole 1 % eCW1 ([facility]) frovatriptan 2.5 MG Oral Tablet Frovatriptan Succinate 2.5 MG Frovatriptan Succinate 2.5 MG 07/11/2020 12:00:00 AM EST a ctive Frovatriptan Succinate 2.5 MG eCW1 ([facility]) frovatriptan 2.5 MG Oral Tablet Frovatriptan Succinate 2.5 MG Frovatriptan Succinate 2.5 MG 07/11/2020 12:00:00 AM EST a ctive Frovatriptan Succinate 2.5 MG eCW1 ([facility]) Clotrimazole 10 MG/ML Topical Cream Clotrimazole 1 % Clotrim azole 1 % 07/11/2020 12:00:00 AM EST 1.0 {application} active Clotrimazole 1 % eCW1 ([facility]) Amoxicillin 875 MG / Clavulanate 125 MG Oral Tablet Amoxicillin-Pot Clavulanate 875-125 MG Amoxicillin-Pot Clavulanate 875-125 MG 07/11/2020 12:00:00 AM ES T 1.0 {tablet} active Amoxicillin-Pot Cla vulanate 875-125 MG eCW1 ([facility]) 875-125 mg 07/11/2020 12:00:00 AM EST tablet 20 TAKE ONE TABLET BY MOUTH EVERY 12 HOURS FOR 10 DAYS TAKE ONE TABLET BY MOUTH EVERY 12 HOURS FOR 10 DAYS SOLD: 07/11/2020 [facility] Clotrimazole 10 MG/ML Topical Cream Clotrimazole 1 % Clotrim azole 1 % 07/11/2020 12:00:00 AM EST 1.0 {application} active Clotrimazole 1 % eCW1 ([facility]) Amoxicillin 875 MG / Clavulanate 125 MG Oral Tablet Amoxicillin-Pot Clavulanate 875-125 MG Amoxicillin-Pot Clavulanate 875-125 MG 07/11/2020 12:00:00 AM ES T 1.0 {tablet} active Amoxicillin-Pot Cla vulanate 875-125 MG eCW1 ([facility]) Amoxicillin 875 MG / Clavulanate 125 MG Oral Tablet Amoxicillin-Pot Clavulanate 875-125 MG Amoxicillin-Pot Clavulanate 875-125 MG 07/11/2020 12:00:00 AM ES T 1.0 {tablet} active Amoxicillin-Pot Cla vulanate 875-125 MG eCW1 ([facility]) frovatriptan 2.5 MG Oral Tablet Frovatriptan Succinate 2.5 MG Frovatriptan Succinate 2.5 MG 07/11/2020 12:00:00 AM EST a ctive Frovatriptan Succinate 2.5 MG eCW1 ([facility]) Clotrimazole 10 MG/ML Topical Cream Clotrimazole 1 % Clotrim azole 1 % 07/11/2020 12:00:00 AM EST 1.0 {application} active Clotrimazole 1 % eCW1 ([facility]) Amoxicillin 875 MG / Clavulanate 125 MG Oral Tablet Amoxicillin-Pot Clavulanate 875-125 MG Amoxicillin-Pot Clavulanate 875-125 MG 07/11/2020 12:00:00 AM ES T 1.0 {tablet} active Amoxicillin-Pot Cla vulanate 875-125 MG eCW1 ([facility]) frovatriptan 2.5 MG Oral Tablet Frovatriptan Succinate 2.5 MG Frovatriptan Succinate 2.5 MG 07/11/2020 12:00:00 AM EST a ctive Frovatriptan Succinate 2.5 MG eCW1 ([facility]) Amoxicillin 875 MG / Clavulanate 125 MG Oral Tablet Amoxicillin-Pot Clavulanate 875-125 MG Amoxicillin-Pot Clavulanate 875-125 MG 07/11/2020 12:00:00 AM ES T 1.0 {tablet} active Amoxicillin-Pot Cla vulanate 875-125 MG eCW1 ([facility]) frovatriptan 2.5 MG Oral Tablet Frovatriptan Succinate 2.5 MG Frovatriptan Succinate 2.5 MG 07/11/2020 12:00:00 AM EST a ctive Frovatriptan Succinate 2.5 MG eCW1 ([facility]) frovatriptan 2.5 MG Oral Tablet Frovatriptan Succinate 2.5 MG Frovatriptan Succinate 2.5 MG 07/11/2020 12:00:00 AM EST a ctive Frovatriptan Succinate 2.5 MG eCW1 ([facility]) Clotrimazole 10 MG/ML Topical Cream Clotrimazole 1 % Clotrim azole 1 % 07/11/2020 12:00:00 AM EST 1.0 {application} active Clotrimazole 1 % eCW1 ([facility]) Clotrimazole 10 MG/ML Topical Cream Clotrimazole 1 % Clotrim azole 1 % 07/11/2020 12:00:00 AM EST 1.0 {application} active Clotrimazole 1 % eCW1 ([facility]) Amoxicillin 875 MG / Clavulanate 125 MG Oral Tablet Amoxicillin-Pot Clavulanate 875-125 MG Amoxicillin-Pot Clavulanate 875-125 MG 07/11/2020 12:00:00 AM ES T 1.0 {tablet} active Amoxicillin-Pot Cla vulanate 875-125 MG eCW1 ([facility]) Clotrimazole 10 MG/ML Topical Cream Clotrimazole 1 % Clotrim azole 1 % 07/11/2020 12:00:00 AM EST 1.0 {application} active Clotrimazole 1 % eCW1 ([facility]) frovatriptan 2.5 MG Oral Tablet Frovatriptan Succinate 2.5 MG Frovatriptan Succinate 2.5 MG 07/11/2020 12:00:00 AM EST a ctive Frovatriptan Succinate 2.5 MG eCW1 ([facility]) frovatriptan 2.5 MG Oral Tablet Frovatriptan Succinate 2.5 MG Frovatriptan Succinate 2.5 MG 07/11/2020 12:00:00 AM EST a ctive Frovatriptan Succinate 2.5 MG eCW1 ([facility]) frovatriptan 2.5 MG Oral Tablet Frovatriptan Succinate 2.5 MG Frovatriptan Succinate 2.5 MG 07/11/2020 12:00:00 AM EST a ctive Frovatriptan Succinate 2.5 MG eCW1 ([facility]) Clotrimazole 10 MG/ML Topical Cream Clotrimazole 1 % Clotrim azole 1 % 07/11/2020 12:00:00 AM EST 1.0 {application} active Clotrimazole 1 % eCW1 ([facility]) Amoxicillin 875 MG / Clavulanate 125 MG Oral Tablet Amoxicillin-Pot Clavulanate 875-125 MG Amoxicillin-Pot Clavulanate 875-125 MG 07/11/2020 12:00:00 AM ES T 1.0 {tablet} active Amoxicillin-Pot Cla vulanate 875-125 MG eCW1 ([facility]) Clotrimazole 10 MG/ML Topical Cream Clotrimazole 1 % Clotrim azole 1 % 07/11/2020 12:00:00 AM EST 1.0 {application} active Clotrimazole 1 % eCW1 ([facility]) frovatriptan 2.5 MG Oral Tablet Frovatriptan Succinate 2.5 MG Frovatriptan Succinate 2.5 MG 07/11/2020 12:00:00 AM EST a ctive Frovatriptan Succinate 2.5 MG eCW1 ([facility]) frovatriptan 2.5 MG Oral Tablet Frovatriptan Succinate 2.5 MG Frovatriptan Succinate 2.5 MG 07/11/2020 12:00:00 AM EST a ctive Frovatriptan Succinate 2.5 MG eCW1 ([facility]) Clotrimazole 10 MG/ML Topical Cream Clotrimazole 1 % Clotrim azole 1 % 07/11/2020 12:00:00 AM EST 1.0 {application} active Clotrimazole 1 % eCW1 ([facility]) Clotrimazole 10 MG/ML Topical Cream Clotrimazole 1 % Clotrim azole 1 % 07/11/2020 12:00:00 AM EST 1.0 {application} active Clotrimazole 1 % eCW1 ([facility]) Insurance Providers Payer name Policy type / Coverage type Policy ID Covered democrat ID Covered democrat's relationship to garcia Policy Garcia Plan Information [facility] [id number] SP [id number] [facility] LTV STEEL [id number] S [id number] [employer] [place] [id number] S VYS [id number] [employer] [id number] Self [id number] [employer] [place] [id number] S VYS [id number] [facility] [id number] S [id number] [facility] [id number] S [id number] [employer] [place] WATN PPO 302/307 [id number] SP [id number] [employer] [place] PPO 302/307 [id number] SP [id number] [employer] B [id number] S VYS [id number] [facility] [id number] SP [id number] ANSI-Medicaid [id number] q184be02-8f94-975a-f92v-2w26cm3dd116 ANSI-Commercial 26uq920b-7217-7c28-2rv1-a724y04lg075 16sy718g-2703-0k08-2ff0-i616e59zp740 ANSI-Commercial f7802cx2-a481-9l91-9072-5vuw470rdak4 t6124vm0-u499-8m14-5020-4mcu894gywq2 ANSI-Medicaid [id number] ANSI-Commercial m9a2mu27-232z-4431-w429-922720390c12 y8u4ah58-204t-7437-j455-914188388g81 ANSI-Commercial 12og8162-1w68-464h-u1q1-s7d2k334b2b4 52fc1995-9y17-237m-x0v8-y5k9r019f7k7 ANSI-Medicaid [id number] ANSI-Commercial 8877379n-05d2-1937-x50d-psi6h5160fa7 2179581y-45h0-6171-w60m-oro6t8767sa4 ANSI-Commercial 8ph2866k-gm01-8292-7266-[id number] 0ze7910s-sx30-2354-5155-y95k634109h5 [facility] [id number] 95 [id number] ANSI-Commercial 8n18s581-8552-35x4-u1lf-e4k8n4464l09 6g89v136-0485-21w5-i1km-y9p3k5308d28 ANSI-Medicaid [id number] ANSI-Commercial 623t970y-9o20-1t8e-8038-[id number] 959x510t-2p37-7p1y-0083-s773r395517p ANSI-Medicaid [id number] ANSI-Commercial z139dg5h-n57r-6771-z904-0x3386rq4141 y772hf6h-c09t-1601-s468-1z0175ef9437 ANSI-Commercial 28zh846q-40cy-033s-6wz4-a4t80u57w159 92om473b-05kn-823p-5kv2-f6v59q37b842 ANSI-Commercial 4uaa0763-5w41-0zi4-4g4i-32z1v106536e 4ssh5684-1o06-3xf5-5s9p-77o7z337188k ANSI-Commercial 2ccy2lyw-9mpu-2q9x-4ox2-r7225351j5u0 8naq7jos-0ffs-1o6z-5tl7-c9647619h6g3 ANSI-Medicaid [id number] ANSI-Commercial 9tf01331-1e62-78n2-71lb-j3mg0404smha 8jm61489-2g20-12s9-95qo-x2nv6494hxtz ANSI-Commercial 1yjim86o-53aq-6v06-fkp3-ud2o6x297ls5 3ryje76k-38ps-9e65-end6-tu2w9a288zi0 ANSI-Medicaid [id number] ANSI-Commercial 54ai4xf3-3gk8-8365-h52v-ipwwh794cb87 40nt4hm0-1zs8-9936-c45f-fbeip621vh40 ANSI-Medicaid [id number] ANSI-Commercial d44yj9b2-9688-6wp1-4xs1-k04x8102t99o t31of0j4-2271-4sp6-2rb7-e41b5610r28h ANSI-Commercial 75tya721-2b49-6v13-a604-5666p3r6i877 18ojo175-5d54-8u38-g233-7323x3h7j789 ANSI-Commercial c5w72355-66qn-6wa2-7583-xd9554y6n1ox b2i73256-85km-8yz7-6201-gb3950i9j5si ANSI-Medicaid [id number] [facility] ([facility] [id number] 2 [id number] Self [id number] ANSI-Commercial 34qx6q6g-13z6-4932-771s-04o3507e584f 07eh8t4c-43r9-1665-389x-76m7023i453n ANSI-Commercial 19741371-dstu-31zn-w6kq-j406jq6oy606 24055483-ojkx-51aq-v7cy-p758qm9sj693 ANSI-Medicaid [id number] ANSI-Commercial i767ho0n-yw66-5567-3p5n-h7279i2k4425 y537fm4n-yw66-3855-8x6f-l2383t9s1574 ANSI-Medicaid [id number] ANSI-Commercial t60vui3q-n0j9-1275-2u7d-phqv85417tr1 l10jzm3c-g0p5-3199-8f2e-eiup08773ad3 ANSI-Commercial v297899m-7jl7-3h90-s58z-29q2kg1t6i3s r359740q-8yd7-6c55-o04b-54e7yc5v6s9z ANSI-Commercial 90026q49-i7du-7642-0h68-egdz9f494l0j 22501p60-u1tv-0278-5r13-htko7o197s6h ANSI-Medicaid [id number] ANSI-Medicaid [id number] ANSI-Commercial dp832qck-3762-392u-745h-18set6339570 th352kkn-2091-716e-653l-14xif8751452 ANSI-Commercial z33867u2-336l-1135-y1j0-936wmfe4up2h v69881g3-733e-6233-m1k9-267hsoa0kd3s ANSI-Medicaid [id number] ANSI-Commercial 845r3p34-1342-2l79-1i17-fl4097u190v8 273f2g52-1694-3c19-5n70-py8605t167n7 ANSI-Commercial d2931050-qad9-6419-15ir-96cjt3tlwq36 y5255101-uim2-3762-92qs-38uco6rfjh07 [facility] [id number] 95 [id number] ANSI-Commercial di955724-izm4-56p7-x90l-02ys5640onl6 ph816427-hnl1-05e7-g14l-37bx4423xwx3 ANSI-Commercial 9816u72o-532i-39b9-c32m-2b1jp9u8e9rf 1188f66d-818z-24z2-v43f-4i2ol3c5j4ot ANSI-Medicaid [id number] [facility] Maintenance Organization ([facility] [id number] 2 [id number] Self [id number] ANSI-Commercial 811354i0-fcz1-3733-b82p-858209y8160c 724878y6-jui2-6994-l05x-761238v8517c ANSI-Medicaid [id number] [facility] y6gp7876-1584-2623-9324-0uif193523wo d8tm0346-5682-6404-6587-1zkc238946pb ANSI-Medicaid [id number] [facility] [id number]-73l6-7u65-i9746c306u4t 3g620mr8-257r-76j0-8r75-t4167r010j8d [facility] 5344916d-3zhi-5x6l-74y9-8ed3fewz50k2 9975798v-5ffp-5x4s-02h8-3zd4elnq62q8 [facility] 0tu639qo-l4xo-7j60-1353-6xt1w192d4t1 4sy800wu-w4wi-3e14-9225-7zp4m264r6g9 [facility] 2181x117-b99l-2t09-78d7-438385r260z8 1527k246-p31n-[id number] ANSI-Medicaid [id number] [facility] 405xq734-0339-61fs-7m39-2he83n754cpa 292xy083-2282-99qo-8g64-3vy56u095epc ANSI-Medicaid [id number] ANSI-Commercial [id number] 40iit205-7248-9f49-0470-0t40386l32io ANSI-Medicaid [id number] ANSI-Commercial 8239i6g4-39k8-2z40-u971-db3w75cw0k51 1638a3x0-36l3-8s07-n138-uz7g36az5e60 ANSI-Commercial 791j4589-4251-4p03-92o6-1omiig8qd9l9 449q5648-7401-3i76-61b4-7ogzvo9lh1a2 [employer] NO FAULT [id number] SP [id number] [employer] NO FAULT [id number] SP [id number] [facility] [id number] SP [id number] [facility] Health Maintenance Organization (HMO) [id number] 2 [id number] Self [id number] [facility] Health Maintenance Organization (HMO) [id number] 2 [id number] Self [id number] [facility] Health Maintenance Organization (HMO) [id number] 2 [id number] Self [id number] [facility] Health Maintenance Organization (HMO) [id number] 2 [id number] Self [id number] [facility] (pa) Commercial [id number] Self [facility] Health Maintenance Organization (HMO) [id number] Self D Managed Care [facility] P [id number] S [id number] Medicaid Dental S [id number] S [id number] [facility] [id number] SP [id number] [facility] [id number] SP [id number] [facility] [place] [id number] SP [id number] [facility] [place] [id number] SP [id number] [facility] [id number] S [id number] [facility] [id number] S [id number] Problems, Conditions, and Diagnoses Code Display Name Description Problem Type Effective Dates Data Source(s) M79.601 Pain in right arm PAIN IN RIGHT ARM Diagnosis 01/18 03:00:[address] [facility] Y93.89 Activity, other specified ACTIVITY, OTHER SPECIFIED Di agnosis 12/20/2020 12:33:[address] [facility] Y92.[address] the place of o ccurrence of the external cause OTH PLACES THE PLACE OF OCCURRENCE OF THE EXTER Diagnosis 04/2021 12:33:[address] [facility] X58.XXXA Exposure to other specified factors, ini tial encounter EXPOSURE TO OTHER SPECIFIED FACTORS, INITIAL ENCOU Diagnosis 12/20/2020 12:33:[address] [facility] Z79.899 Other fdc (current) drug therapy O [employer]ER [employer] (CURRENT) DRUG THERAPY Diagnosis 12/20/2020 12:33:00 PM [facility] F17.210 Nicotine dependence, cigarettes, uncompl icated NICOTINE DEPENDENCE, CIGARETTES, UNCOMPLICATED Diagnosis 12/20/2020 12:33:00 PM [facility] S16.1XXA Strain of muscle, fascia and tendon at n howie level, initial encounter STRAIN OF MUSCLE, FASCIA AND TENDON AT NECK LEVEL, Diagnosis 04/2021 12:33:[address] [facility] M54.2 Cervicalgia CERVICALGIA Diagnosis 12/20/2020 12:33:[address] [facility] F31.81 Bipolar II disorder BIPOLAR II DISORDER Diagnosis 0 07/30/2020 01:00:00 PM [facility] F60.3 Borderline personality disorder BORDERLINE PERSONALITY DISORDER Diagnosis 07/30/2020 01:00:00 PM [facility] D75.89 [id number] Macrocytosis Problem 08/30/2020 12:00:00 AM EST eCW1 ([facility]) G43.829 [id number] Menstrual migraine without statu s migrainosus, not intractable Problem 07/11/2020 12:00:00 AM EST eCW1 ([facility]) F39 [id number] Mood disorder Problem 07/11/2020 12:00:00 AM EST eCW1 ([facility]) Surgeries/Procedures Procedure Description Date Indications Data Source(s) OFFICE OUTPATIENT VISIT 25 MINUTES 04/15/2021 12:00:00 AM EDT MEDENT ([facility], ) OFFICE OUTPATIENT VISIT 15 MINUTES 04/01/2021 12:00:00 AM EDT MEDENT ([facility]) OFFICE OUTPATIENT VISIT 25 MINUTES 04/01/2021 12:00:00 AM EDT MEDENT ([facility]) OFFICE OUTPATIENT VISIT 15 MINUTES 02/18/2021 12:00:00 AM EDT MEDENT ([facility], ) OFFICE OUTPATIENT VISIT 25 MINUTES 02/18/2021 12:00:00 AM EDT MEDENT ([facility], ) Needle electromyography, each extremity, with related paraspinal areas, when performed, done with nerve conduction, amplitude and latency/velocity study; complete, five or more muscles studied, innervated by three or more nerves or four or more spinal levels (list separately in addition to the code for primary procedure). 02/06/2021 12:00:00 AM EDT MEDEN T ([facility], ) Needle electromyography, each extremity, with related paraspinal areas, when performed, done with nerve conduction, amplitude and latency/velocity study; complete, five or more muscles studied, innervated by three or more nerves or four or more spinal levels (list separately in addition to the code for primary procedure). 02/06/2021 12:00:00 AM EDT MEDEN T ([facility], ) 47610 Nerve conduction studies 13 or more studies NEW 201202/06/2021 12:00:00 AM EDT MEDENT ([facility], ) Inject/Drain Arthrocentesis Major Joint/Bursa/Ganglion Cyst 12/25/2020 12:00:00 AM EDT MEDENT ([facility]) OFFICE OUTPATIENT NEW 45 MINUTES 12/25/2020 12:00:00 A M EDT MEDANTONELLA ([facility], ) Immunization: Flublok Quadrivalent (18 years & older) 0.5mL IM (Influenza) 07/11/2020 12:00:00 AM EST eCW1 ([facility]) Results ID Date Data Source [id number] 04/12/2021 10:45:00 AM EDT [facility] Name Value Range Interpretation Code Description Data Hayley rce(s) Supporting Document(s) SARS-CoV-2 RNA Resp Ql GALA+probe NOT DETECTED [facility] This lab was ordered by DUGLAS thomson and reported by DUGLAS Kenyon. ID Date Data Source [id number] 01/21/2021 02:42:00 PM EDT [facility] DATE OF EXAMINATION: 01/18/2021 14:49 EDT DOP HANDY UNILATERAL HISTORY: Pain DVT Right LOWER EXTREMITY VENOUS DOPPLER Duplex scan was performed using B-mode/garcia scale imaging and Doppler spectralanalysis and color flow. FINDINGS: Common femoral and superficial femoral veins were interrogated throughout theircourse, revealing easy compressibility and appropriate augmentation. Thepopliteal vessels are also easily compressible and show no signs of intraluminalthrombus formation. IMPRESSION: Negative study for deep venous thrombosis in the Right lower extremity. Electronically signed in PS[facility] by: Cathy Clark M.D. 01/18/2021 15:19 EDT ADDENDUM: 01/21/21 1442 Report states: Right Lower Ext. This is the corrected Report for the Right Upper Extremity. DATE OF EXAMINATION: 01/18/2021 14:49 EDT DOP HANDY UNILATERAL ULTRASOUND VENOUS DOPPLER Right UPPER EXTREMITY HISTORY: Pain DVT Duplex scan was performed using B-mode/garcia scale imaging and Doppler spectralanalysis and color flow. FINDINGS: Subclavian, ax illary and brachial veins were interrogated throughout theircourse, revealing easy compressibility and appropriate augmentation. The basilicand cephalic veins are also easily compressible and show no signs ofintraluminal thrombus formation. IMPRESSION: Negative study for deep venous thrombosis in the Right upper extremity. Electronically signed in PS360 by: Cathy Clark M.D. 01/21/2021 14:37 EDT Name Value Range Interpretation Code Description Data Hayley rce(s) Supporting Document(s) ID Date Data Source VITB12 & FOL 01/07/2021 12:00:00 AM EDT eCW1 ([facility]) Name Value Range Interpretation Code Description Data Hayley rce(s) Supporting Document(s) 1102 VITAMIN B12 LEVEL eCW1 ([facility]) 7.0 FOLATE eCW1 ([facility]) ID Date Data Source VITAMIN D 25-HYDROXY 01/07/2021 12:00:00 AM EDT eCW1 ([facility]) Name Value Range Interpretation Code Description Data Hayley rce(s) Supporting Document(s) 30.3 30.0-100.0 TOTAL 25(OH) VITAMIN D eC W1 ([facility]) ID Date Data Source TSH 01/07/2021 12:00:00 AM EDT eCW1 ([facility]) Name Value Range Interpretation Code Description Data Hayley rce(s) Supporting Document(s) 1.180 0.358-3.740 THYROID STIMULATING HORM ONE eCW1 ([facility]) ID Date Data Source TOTAL IRON BINDING CAPACIT 01/07/2021 12:00:00 AM EDT eCW1 ( [facility]) Name Value Range Interpretation Code Description Data Hayley rce(s) Supporting Document(s) 45 50-170 IRON (FE) eCW1 ([facility]) 320 250-450 TOTAL IRON BINDING CAPACI TY eCW1 ([facility]) 14.1 13.2-45.0 PERCENT SATURATION eCW1 ([facility]) ID Date Data Source RHEUMATOID FACTOR QUANT 01/07/2021 12:00:00 AM EDT eCW1 ([facility]) Name Value Range Interpretation Code Description Data Hayley rce(s) Supporting Document(s) < 10.0 <15.0 RHEUMATOID FACTOR QUANT eCW1 ( [facility]) ID Date Data Source ERYTHROCYTE SEDIMENTATION RATE 01/07/2021 12:00:00 AM EDT eC W1 ([facility]) Name Value Range Interpretation Code Description Data Hayley rce(s) Supporting Document(s) 5 0-20 ERYTHROCYTE SEDIMENTATION RATE eCW1 ([facility]) ID Date Data Source CYCLIC CITRULLINATED PEPTIDE 01/07/2021 12:00:00 AM EDT eCW1 ([facility]) Name Value Range Interpretation Code Description Data Hayley rce(s) Supporting Document(s) 5 0-19 CYCLIC CITRULLINATED PEPTIDE e CW1 ([facility]) ID Date Data Source C REACTIVE PROTEIN QUANTITATIV (At [facility]) 01/07/2021 12:00 :00 AM EDT eCW1 ([facility]) Name Value Range Interpretation Code Description Data Hayley rce(s) Supporting Document(s) 0.37 0.00-0.30 C REACTIVE PROTEIN QUANTI TATIV eCW1 ([facility]) ID Date Data Source Comprehensive Metabolic Profile (CMP) 01/07/2021 12:00:00 AM EDT eCW1 ([facility]) Name Value Range Interpretation Code Description Data Hayley rce(s) Supporting Document(s) 82 70-100 GLUCOSE, FASTING eCW1 ([facility]) > 60.0 >60 GLOMERULAR FILTRATION RATE eCW 1 ([facility]) 0.67 0.55-1.30 CREATININE FOR GFR eCW1 ([facility]) 14 7-18 BLOOD UREA NITROGEN eCW1 ([facility]) 136 136-145 SODIUM LEVEL eCW1 ([facility]) 25 21-32 CARBON DIOXIDE LEVEL eCW1 ([facility]) 4.6 3.5-5.1 POTASSIUM SERUM eCW1 ([facility]) 106 98-107 CHLORIDE LEVEL eCW1 ([facility]) 81 45-117 ALKALINE PHOSPHATASE eCW1 ([facility]) 22 12-78 ALT/SGPT eCW1 ([facility]) 12 7-37 AST/SGOT eCW1 ([facility]) 8.8 8.5-10.1 CALCIUM LEVEL eCW1 ([facility]) 4.5 3.2-5.2 ALBUMIN eCW1 ([facility]) 7.0 6.4-8.2 TOTAL PROTEIN eCW1 ([facility]) 0.5 0.2-1.0 BILIRUBIN,TOTAL eCW1 ([facility]) 1.8 1.2-2.2 ALBUMIN/GLOBULIN RATIO eCW1 ([facility]) ID Date Data Source CBC with Differential 01/07/2021 12:00:00 AM EDT eCW1 ([facility]) Name Value Range Interpretation Code Description Data Hayley rce(s) Supporting Document(s) 9.1 4.0-10.0 WHITE BLOOD COUNT eCW1 ([facility]) 4.17 4.00-5.40 RED BLOOD COUNT eCW1 ([facility]) 101.2 80.0-96.0 MEAN CORPUSCULAR VOLUME e CW1 ([facility]) 13.8 12.0-15.5 HEMOGLOBIN eCW1 ([facility]) 42.2 36.0-47.0 HEMATOCRIT eCW1 ([facility]) 425 150-450 PLATELET COUNT, AUTOMATED eCW1 ([facility]) 13.8 11.5-14.5 RED CELL DISTRIBUTION WID TH eCW1 ([facility]) 33.1 27.0-33.0 MEAN CORPUSCULAR HEMOGLOB IN eCW1 ([facility]) 32.7 32.0-36.5 MEAN CORPUSCULAR HGB CONC eCW1 ([facility]) 61.9 36.0-66.0 NEUTROPHILS % eCW1 ([facility]) 6.3 2.0-8.0 MONO % eCW1 ([facility]) 28.2 24.0-44.0 LYMPH % eCW1 ([facility]) 0.3 0.0-1.0 BASO % eCW1 ([facility]) 2.6 1.5-5.0 LYMPH # eCW1 ([facility]) 5.6 1.5-8.5 NEUTROPHILS # eCW1 ([facility]) 3.0 0.0-3.0 EOS % eCW1 ([facility]) 0.6 0.0-0.8 MONO # eCW1 ([facility]) 0.3 0.0-0.5 EOS # eCW1 ([facility]) 0.0 0.0-0.2 BASO # eCW1 ([facility]) ID Date Data Source [id number] 12/21/2020 11:43:00 AM EDT [facility]: MARISELA GAONA Observati on Report - [facility]VisitID: [id number] [place] [address] [phone], [facility] [place] Date/Time: 12/20/2020 10:34 Weight:77.1 kg (S). Height/Length:62 inches (S). BMI:31.1 PAST HISTORYProblems:Back Pain [Active].Depression [Chronic].Anxiety Reaction [Chronic].Bipolar Disorder [Chronic]. Additional Surgeries:Dental Surgery.Tubal Ligation. Medications:Folic Acid Oral (Tablet 1 mg) 1 tablet, daily.Vitamin B12 Oral (Tablet Extended Release 1000 mcg) 1 tablet, daily.lamoTRIgine ER Oral (Tablet Extended Release 24 Hour 200 mg) 1 tablet, daily.Escitalopram Oxalate Oral (Tablet 20 mg) 1 tablet, daily. Allergies:No Known Drug Allergy. FAMILY HISTORYNo significant family medical history. INSTRUCTIONSYour Current Medications: Your current home medications have been reviewed. CONTINUE TAKING THE FOLLOWING MEDICATIONS:Escitalopram Oxalate Oral : Tablet 20 mg, 1 tablet daily. Folic Acid Oral : Tablet 1 mg, 1 tablet daily. lamoTRIgine ER Oral : Tablet Extended Release 24 Hour 200 mg, 1 tablet daily. Vitamin B12 Oral : Tablet Extended Release 1000 mcg, 1 tablet daily. (Electronically signed by Allyson Ambriz MD 12/21/2020 11:41) Name Value Range Interpretation Code Description Data Hayley rce(s) Supporting Document(s) ID Date Data Source [id number] 12/21/2020 06:10:00 PM EDT [facility] Name Value Range Interpretation Code Description Data Hayley rce(s) Supporting Document(s) LYME IGG/IGM AB <0.91 ISR 0.00-0.90 [facility] Negative <0.91 Equivocal 0.91 - 1.09 Positive > 1.09Performed at: [address] [id number] Director: Lisa Pulido MD, Phone: [phone] ID Date Data Source [id number] 12/21/2020 06:05:00 PM EDT [facility] Name Value Range Interpretation Code Description Data Hayley rce(s) Supporting Document(s) Lyme IgG/IgM Ab 0.00-0.90 [facility] Negative <0.91 Equivocal 0.91 - 1.09 Positive >1.09 ID Date Data Source [id number] 12/21/2020 02:06:00 PM EDT [facility] Name Value Range Interpretation Code Description Data Hayley rce(s) Supporting Document(s) ROXY DIRECT Negative Negative [facility] Performed at: [address] [id number] Director: Lisa Pulido MD, Phone: [phone] ID Date Data Source [id number] 12/21/2020 02:05:00 PM EDT [facility] Name Value Range Interpretation Code Description Data Hayley rce(s) Supporting Document(s) ROXY Direct Negative Negative [facility] ID Date Data Source [id number] 12/20/2020 01:36:00 PM EDT [facility] TSYSORDER [id number] Name Value Range Interpretation Code Description Data Hayley rce(s) Supporting Document(s) ERYTHROCYTE SEDIMENTATION RATE 9 mm/hr 0-20 [facility] ID Date Data Source [id number] 12/20/2020 01:22:00 PM EDT [facility] TSYSORDER [id number] Name Value Range Interpretation Code Description Data Hayley rce(s) Supporting Document(s) CREATINE PHOSPHOKINASE 93 U/L 26-192 [facility] ID Date Data Source [id number] 12/20/2020 01:22:00 PM EDT [facility] TSYSORDER [id number] Name Value Range Interpretation Code Description Data Hayley rce(s) Supporting Document(s) TSH 2.183 uIU/mL 0.360-3.740 [facility] ID Date Data Source [id number] 12/20/2020 01:15:00 PM EDT [facility] TSYSORDER [id number] Name Value Range Interpretation Code Description Data Hayley rce(s) Supporting Document(s) C REACTIVE PROTEIN 4.0 mg/L 0.0-3.0 [facility] ID Date Data Source [id number] 12/20/2020 12:55:00 PM EDT [facility] TSYSORDER [id number] Name Value Range Interpretation Code Description Data Hayley rce(s) Supporting Document(s) LIPASE 84 U/L 73-393 [facility] ID Date Data Source [id number] 12/20/2020 12:55:00 PM EDT [facility] TSYSORDER [id number] Name Value Range Interpretation Code Description Data Hayley rce(s) Supporting Document(s) MAGNESIUM 2.7 mg/dL 1.8-2.4 H [facility] ID Date Data Source [id number] 12/20/2020 12:55:00 PM EDT [facility] TSYSORDER [id number] Name Value Range Interpretation Code Description Data Hayley rce(s) Supporting Document(s) GLUCOSE 89 mg/dL 74-106 [facility] BLOOD UREA NITROGEN 9 mg/dL 7-18 [facility] CREATININE 0.86 mg/dL 0.6-1.0 [facility] SODIUM 139 mmol/L 136-145 [facility] POTASSIUM 4.5 mmol/L 3.5-5.1 [facility] CHLORIDE 101 mmol/L 98-107 [facility] CO2 26 mmol/L 21-32 [facility] CALCIUM 8.8 mg/dL 8.5-10.1 [facility] ANION GAP 12.0 mmol/L 5-12 [facility] GLOMERULAR FILTRATION RATE 74 mL/min [facility] GFR IS CALCULATED IN mL/min/1.73m2 [place] L FUNCTION: >90MILDLY DECREASED: 60-89MILDY TO MODERATELY DECREASED: 45-59 MODERATELY TO SEVERELY DECREASED: 30-44SEVERELY DECREASED: 15-29RENAL FAILURE: <15 AST 15 U/L 15-37 [facility] ALT 39 U/L 12-78 [facility] ALKALINE PHOSPHATASE 92 U/L 46-116 [facility] pital TOTAL BILIRUBIN 0.3 mg/dL 0.2-1.0 [facility] TOTAL PROTEIN 8.3 g/dl 6.4-8.2 H [facility] ALBUMIN 4.7 gm/dL 3.4-5.0 [facility] ID Date Data Source [id number] 12/20/2020 12:50:00 PM EDT [facility] TSYSORDER [id number] Name Value Range Interpretation Code Description Data Hayley rce(s) Supporting Document(s) PARTIAL THROMBOPLASTIN TIME 27.9 SECONDS 21.2-27.3 H [facility] ID Date Data Source [id number] 12/20/2020 12:50:00 PM EDT [facility] TSYSORDER [id number] Name Value Range Interpretation Code Description Data Hayley rce(s) Supporting Document(s) PROTHROMBIN TIME (PATIENT) 10.5 SECONDS 9.1-11.6 [facility] INR 1.01 0.87-1.06 [facility] ID Date Data Source [id number] 12/20/2020 12:31:00 PM [facility] TSYSORDER [id number] Name Value Range Interpretation Code Description Data Hayley rce(s) Supporting Document(s) WHITE BLOOD COUNT 11.6 K/mm3 4.0-10.0 [facility] anna RED BLOOD COUNT 4.36 M/mm3 4.00-5.50 [facility] HEMOGLOBIN 14.3 gm/dL 12.0-16.0 [facility] HEMATOCRIT 43.2 % 36.0-48.8 [facility] MEAN CELL VOLUME 99.1 fl 80-96 H [facility] MEAN CORPUSCULAR HEMOGLOBIN 32.8 pg 27.0-31.0 H [facility] MEAN CORPUSCULAR HGB CONC 33.1 g/dl 32.0-36.0 [facility] RED CELL DISTRIBUTION WIDTH 13.5 % 10.0-14.5 [facility] PLATELET COUNT 385 K/mm3 172-450 [facility] MEAN PLATELET VOLUME 10.2 fl 9.0-13.[address] [facility] pital GRAN % 67.4 % 50-80.0 [facility] IG% 0.3 % 0.0-0.2 [facility] LYMPH % 23.6 % 25.0-50.0 L [facility] MONO % 5.4 % 2.0-10.0 [facility] EOS % 3.1 % 0-5.0 [facility] BASO % 0.2 % 0.0-2.0 [facility] GRAN # 7.8 K/mm3 2.0-8.00 [facility] IG# 0.0 K/mm3 0.0-0.2 [facility] LYMPH # 2.7 K/mm3 1.0-5.0 [facility] MONO # 0.6 K/mm3 0.10-1.20 [facility] EOS # 0.4 K/mm3 0.0-0.5 [facility] BASO # 0.0 K/mm3 0.0-0.2 [facility] ID Date Data Source KATYA SHOULDER COMPLETE 11/29/2020 12:00:00 AM EDT eCW1 ([facility]) Name Value Range Interpretation Code Description Data Hayley rce(s) Supporting Document(s) KATYA SHOULDER COMPLETE eCW1 ([facility]) ID Date Data Source KATYA CHEST 2 VIEW 11/29/2020 12:00:00 AM EDT eCW1 ([facility]) Name Value Range Interpretation Code Description Data Hayley rce(s) Supporting Document(s) KATYA CHEST 2 VIEW eCW1 ([facility]) ID Date Data Source LIPID PANEL (CARDIAC RISK) 11/26/2020 12:00:00 AM EDT eCW1 ( [facility]) Name Value Range Interpretation Code Description Data Hayley rce(s) Supporting Document(s) Cholesterol [Moles/volume] in Serum or Plasma 189 <200 CHOLESTEROL LEVEL eCW1 ([facility]) Triglyceride [Mass/volume] in Serum or Plasma by calculation 206 <150 TRIGLYCERIDES LEVEL eCW1 ([facility]) Cholesterol in HDL [Moles/volume] in Serum or Plasma 31 >40 HDL CHOLESTEROL eCW1 ([facility]) 158 NON-HDL-C eCW1 ([facility]) 6.096 <5 CHOLESTEROL RISK RATIO eCW1 ([facility]) Cholesterol in LDL [Mass/volume] in Serum or Plasma by calculation 117 <100 LDL CHOLESTEROL eCW1 ([facility]) ID Date Data Source [id number] 08/24/2020 09:55:00 AM EST MEDENT ([facility], [facility]) Name Value Range Interpretation Code Description Data Hayley rce(s) Supporting Document(s) White Blood Count 8.4 10 4.0-10.0 MEDENT ([facility], [facility]) Red Blood Count 4.43 10 4.00-5.40 MEDENT ([facility], [facility]) Hemoglobin 13.9 g/dL 12.0-15.5 MEDENT ([facility]) Mean Corpuscular Volume 99.8 fl 80.0-96.0 M EDENT ([place] [facility], [facility]) Hematocrit 44.2 % 36.0-47.0 MEDENT [facility] Mean Corpuscular HGB Conc 31.4 g/dL 32.0-36.5 MEDENT ([place] [facility], [facility]) Mean Corpuscular Hemoglobin 31.4 pg 27.0-33.0 MEDENT ([facility], [facility]) Red Cell Distribution Width 13.9 % 11.5-14.5 MEDENT ([place] [facility], [facility]) Neutrophils % 60.1 % 36.0-66.0 MEDENT ([facility], [facility]) Lymph % 30.4 % 24.0-44.0 MEDENT ([facility], [facility]) Platelet Count, Automated 381 10 150-450 MEDENT ([place] [facility], [facility]) [place] % 6.1 % 2.0-8.0 MEDENT ([facility] [facility], [facility]) Eos % 2.6 % 0.0-3.0 MEDENT ([facility], [facility]) Baso % 0.4 % 0.0-1.0 MEDENT ([facility], [facility]) Neutrophils # 5.0 10 1.5-8.5 MEDENT ([facility], [facility]) Immature Granulocyte % 0.4 % 0-3.0 MEDENT ([facility], [facility]) Nucleated Red Blood Cell % 0.0 % 0-0 MED ENT ([facility], [facility]) Eos # 0.2 10 0.0-0.5 MEDENT ([facility], [facility]) [place] # 0.5 10 0.0-0.8 MEDENT ([facility], [facility]) Lymph # 2.6 10 1.5-5.0 MEDENT ([facility], [facility]) Baso # 0.0 10 0.0-0.2 MEDENT ([facility], [facility]) ID Date Data Source [id number] 08/24/2020 09:55:00 AM EST MEDENT ([facility], [facility]) Name Value Range Interpretation Code Description Data Hayley rce(s) Supporting Document(s) Glucose, Fasting 105 mg/dL 70-100 MEDENT ([facility], [facility]) Blood Urea Nitrogen 13 mg/dL 7-18 MEDENT ([facility], [facility]) Glomerular Filtration Rate [facility]) <content>Units are mL/min/1.73 m2</content>
<content></content>
<content>Chronic Kidney Disease Staging per NKF:</content>
<content></content>
<content>Stage I & II GFR >=60 Normal to Mildly Decreased</content>
<content>Stage III GFR 30- 59 Moderately Decreased</content>
<content>Stage IV GFR 15-29 Severely Decreased</content>
<content>Stage V GFR <15 Very Little GFR Left</content>
<content>ESRD GFR <15 on HEALTH SYSTEMS ANALYST</content>
<content></content> Creatinine For GFR 0.88 mg/dL 0.55-1.30 MEDENT ([facility], [facility]) Sodium Level 139 meq/L 136-145 MEDENT ([facility]) Potassium Serum 4.3 meq/L 3.5-5.1 MEDENT ([facility], [facility]) Chloride Level 103 meq/L 98-107 MEDENT ([facility], [facility]) Calcium Level 9.4 mg/dL 8.5-10.1 MEDENT ([facility], [facility]) Carbon Dioxide Level 28 meq/L 21-32 [facility] ( [facility]) Anion Gap 8 meq/L 8-16 MEDENT ([facility], [facility]) Alt/SGPT 29 U/L 12-78 MEDENT ([facility], [facility]) Ast/Sgot 13 U/L 7-37 MEDENT ([facility], [facility]) Alkaline Phosphatase 95 U/L 45-117 MEDENT ( [facility]) Bilirubin,Total 0.2 mg/dL 0.2-1.0 MEDENT ([facility], [facility]) Albumin 4.4 GM/DL 3.2-5.2 MEDENT ([facility], [facility]) Total Protein 7.7 GM/DL 6.4-8.2 MEDENT ([facility], [facility]) Albumin/Globulin Ratio 1.3 1.2-2.2 MEDENT ([facility], [facility]) ID Date Data Source [id number] 08/23/2020 12:00:00 AM EST [facility] Name Value Range Interpretation Code Description Data Hayley rce(s) Supporting Document(s) SARS-CoV2 Rapid Antigen Negative [facility] This lab was reported by José Ball. Procedure Social History Code Duration Value Status Description Data Source(s ) Smoking 03/14/2021 12:00:00 AM EDT Current Smoker completed Curre nt Smoker eCW1 ([facility]) Smoking 01/15/2021 12:00:00 AM EDT Current Smoker completed Curre nt Smoker eCW1 ([facility]) Smoking 01/15/2021 12:00:00 AM EDT Current Smoker completed Curre nt Smoker eCW1 ([facility]) Smoking 01/15/2021 12:00:00 AM EDT Current Smoker completed Curre nt Smoker eCW1 ([facility]) Smoking 01/15/2021 12:00:00 AM EDT Current Smoker completed Curre nt Smoker eCW1 ([facility]) Smoking 01/15/2021 12:00:00 AM EDT Current Smoker completed Curre nt Smoker eCW1 ([facility]) Smoking 01/15/2021 12:00:00 AM EDT Current Smoker completed Curre nt Smoker eCW1 ([facility]) Smoking 01/15/2021 12:00:00 AM EDT Current Smoker completed Curre nt Smoker eCW1 ([facility]) Smoking 01/15/2021 12:00:00 AM EDT Current Smoker completed Curre nt Smoker eCW1 ([facility]) Smoking 01/15/2021 12:00:00 AM EDT Current Smoker completed Curre nt Smoker eCW1 ([facility]) Smoking 01/15/2021 12:00:00 AM EDT Current Smoker completed Curre nt Smoker eCW1 ([facility]) Smoking 01/15/2021 12:00:00 AM EDT Current Smoker completed Curre nt Smoker eCW1 ([facility]) Smoking 01/15/2021 12:00:00 AM EDT Current Smoker completed Curre nt Smoker eCW1 ([facility]) Smoking 01/15/2021 12:00:00 AM EDT Current Smoker completed Curre nt Smoker eCW1 ([facility]) Smoking 01/15/2021 12:00:00 AM EDT Current Smoker completed Curre nt Smoker eCW1 ([facility]) Smoking 01/15/2021 12:00:00 AM EDT Current Smoker completed Curre nt Smoker eCW1 ([facility]) Smoking 01/15/2021 12:00:00 AM EDT Current Smoker completed Curre nt Smoker eCW1 ([facility]) Smoking 01/15/2021 12:00:00 AM EDT Current Smoker completed Curre nt Smoker eCW1 ([facility]) Smoking 01/15/2021 12:00:00 AM EDT Current Smoker completed Curre nt Smoker eCW1 ([facility]) Smoking 01/15/2021 12:00:00 AM EDT Current Smoker completed Curre nt Smoker eCW1 ([facility]) Smoking 01/15/2021 12:00:00 AM EDT Current Smoker completed Curre nt Smoker eCW1 ([facility]) Smoking 01/15/2021 12:00:00 AM EDT Current Smoker completed Curre nt Smoker eCW1 ([facility]) Smoking 01/15/2021 12:00:00 AM EDT Current Smoker completed Curre nt Smoker eCW1 ([facility]) Smoking 11/29/2020 12:00:00 AM EDT Current Smoker completed Curre nt Smoker eCW1 ([facility]) Smoking 11/29/2020 12:00:00 AM EDT Current Smoker completed Curre nt Smoker eCW1 ([facility]) Smoking 11/29/2020 12:00:00 AM EDT Current Smoker completed Curre nt Smoker eCW1 ([facility]) Smoking 11/29/2020 12:00:00 AM EDT Current Smoker completed Curre nt Smoker eCW1 ([facility]) Smoking 11/29/2020 12:00:00 AM EDT Current Smoker completed Curre nt Smoker eCW1 ([facility]) Smoking 11/29/2020 12:00:00 AM EDT Current Smoker completed Curre nt Smoker eCW1 ([facility]) Smoking 11/29/2020 12:00:00 AM EDT Current Smoker completed Curre nt Smoker eCW1 ([facility]) Smoking 11/29/2020 12:00:00 AM EDT Current Smoker completed Curre nt Smoker eCW1 ([facility]) Smoking 11/29/2020 12:00:00 AM EDT Current Smoker completed Curre nt Smoker eCW1 ([facility]) Smoking 11/29/2020 12:00:00 AM EDT Current Smoker completed Curre nt Smoker eCW1 ([facility]) Smoking 11/29/2020 12:00:00 AM EDT Current Smoker completed Curre nt Smoker eCW1 ([facility]) Smoking 08/30/2020 12:00:00 AM EST Current Smoker completed Curre nt Smoker eCW1 ([facility]) Smoking 08/30/2020 12:00:00 AM EST Current Smoker completed Curre nt Smoker eCW1 ([facility]) Smoking 08/30/2020 12:00:00 AM EST Current Smoker completed Curre nt Smoker eCW1 ([facility]) Smoking 08/30/2020 12:00:00 AM EST Current Smoker completed Curre nt Smoker eCW1 ([facility]) Smoking 08/30/2020 12:00:00 AM EST Current Smoker completed Curre nt Smoker eCW1 ([facility]) Smoking 08/30/2020 12:00:00 AM EST Current Smoker completed Curre nt Smoker eCW1 ([facility]) Smoking 08/30/2020 12:00:00 AM EST Current Smoker completed Curre nt Smoker eCW1 ([facility]) Smoking 08/30/2020 12:00:00 AM EST Current Smoker completed Curre nt Smoker eCW1 ([facility]) Smoking 08/30/2020 12:00:00 AM EST Current Smoker completed Curre nt Smoker eCW1 ([facility]) Smoking 08/30/2020 12:00:00 AM EST Current Smoker completed Curre nt Smoker eCW1 ([facility]) Smoking 08/30/2020 12:00:00 AM EST Current Smoker completed Curre nt Smoker eCW1 ([facility]) Smoking 08/30/2020 12:00:00 AM EST Current Smoker completed Curre nt Smoker eCW1 ([facility]) Smoking 08/30/2020 12:00:00 AM EST Current Smoker completed Curre nt Smoker eCW1 ([facility]) Smoking 08/30/2020 12:00:00 AM EST Current Smoker completed Curre nt Smoker eCW1 ([facility]) Smoking 08/30/2020 12:00:00 AM EST Current Smoker completed Curre nt Smoker eCW1 ([facility]) Smoking 07/11/2020 12:00:00 AM EST Current Smoker completed Curre nt Smoker eCW1 ([facility]) Smoking 07/11/2020 12:00:00 AM EST Current Smoker completed Curre nt Smoker eCW1 ([facility]) Smoking 07/11/2020 12:00:00 AM EST Current Smoker completed Curre nt Smoker eCW1 ([facility]) Smoking 07/11/2020 12:00:00 AM EST Current Smoker completed Curre nt Smoker eCW1 ([facility]) Smoking 07/11/2020 12:00:00 AM EST Current Smoker completed Curre nt Smoker eCW1 ([facility]) Smoking 07/11/2020 12:00:00 AM EST Current Smoker completed Curre nt Smoker eCW1 ([facility]) Smoking 07/11/2020 12:00:00 AM EST Current Smoker completed Curre nt Smoker eCW1 ([facility]) Smoking 07/11/2020 12:00:00 AM EST Current Smoker completed Curre nt Smoker eCW1 ([facility]) Smoking 07/11/2020 12:00:00 AM EST Current Smoker completed Curre nt Smoker eCW1 ([facility]) Smoking 07/11/2020 12:00:00 AM EST Current Smoker completed Curre nt Smoker eCW1 ([facility]) Smoking 07/11/2020 12:00:00 AM EST Current Smoker completed Curre nt Smoker eCW1 ([facility]) Smoking 07/11/2020 12:00:00 AM EST Current Smoker completed Curre nt Smoker eCW1 ([facility]) Smoking 07/11/2020 12:00:00 AM EST Current Smoker completed Curre nt Smoker eCW1 ([facility]) Vital Signs ID Date Data Source UNK Name Value Range Interpretation Code Description Data Source(s) Body weight [lb_av] eCW1 ([facility]) Body weight 75.3 kg 75.3 kg eCW1 ([facility]) Body height 61 [in_i] 61 [in_i] eCW1 ([facility]) Body mass index (BMI) [Ratio] 31.36 kg/m2 31.36 kg/m2 W1 ([facility]) Heart rate 105 /min 105 /min eCW1 ([facility]) Respiratory rate 18 /min 18 /min eCW1 ([facility]) Body temperature 98.1 [degF] 98.1 [degF] eCW1 ( [facility]) Systolic blood pressure 131 mm[Hg] 131 mm[Hg] e CW1 ([facility]) Diastolic blood pressure 82 mm[Hg] 82 mm[Hg] eCW1 ([facility]) Body temperature 97.6 [degF] 97.6 [degF] MEDENT ([facility], ) Body mass index (BMI) [Ratio] 31.36 kg/m2 31.36 kg/m2 eCW1 ([facility]) Respiratory rate 18 /min 18 /min eCW1 ([facility]) Body weight [lb_av] eCW1 ([facility]) Body temperature 98.3 [degF] 98.3 [degF] eCW1 ( [facility]) Systolic blood pressure 159 mm[Hg] 159 mm[Hg] e CW1 ([facility]) Diastolic blood pressure 100 mm[Hg] 100 mm[Hg] eCW1 ([facility]) Body height 61 [in_i] 61 [in_i] eCW1 ([facility]) Heart rate 89 /min 89 /min eCW1 ([facility]) Body temperature 98.3 [degF] 98.3 [degF] eCW1 ( [facility]) Systolic blood pressure 127 mm[Hg] 127 mm[Hg] e CW1 ([facility]) Diastolic blood pressure 76 mm[Hg] 76 mm[Hg] eCW1 ([facility]) Body weight [lb_av] eCW1 ([facility]) Body height 61 [in_i] 61 [in_i] eCW1 ([facility]) Body mass index (BMI) [Ratio] 31.36 kg/m2 31.36 kg/m2 eCW1 ([facility]) Heart rate 83 /min 83 /min eCW1 ([facility]) Respiratory rate 18 /min 18 /min eCW1 ([facility]) Body weight [lb_av] eCW1 ([facility]) Body height 61 [in_i] 61 [in_i] eCW1 ([facility]) Body mass index (BMI) [Ratio] 31.36 kg/m2 31.36 kg/m2 eCW1 ([facility]) Heart rate 82 /min 82 /min eCW1 ([facility]) Respiratory rate 18 /min 18 /min eCW1 ([facility]) Body temperature 98.7 [degF] 98.7 [degF] eCW1 ( [facility]) Systolic blood pressure 152 mm[Hg] 152 mm[Hg] e CW1 ([facility]) Diastolic blood pressure 90 mm[Hg] 90 mm[Hg] eCW1 ([facility]) Body weight [lb_av] eCW1 ([facility]) Body height 61 [in_i] 61 [in_i] eCW1 ([facility]) Body mass index (BMI) [Ratio] 31.36 kg/m2 31.36 kg/m2 eCW1 ([facility]) Heart rate 89 /min 89 /min eCW1 ([facility]) Respiratory rate 18 /min 18 /min eCW1 ([facility]) Body temperature 98.6 [degF] 98.6 [degF] eCW1 ( [facility]) Systolic blood pressure 133 mm[Hg] 133 mm[Hg] e CW1 ([facility]) Diastolic blood pressure 82 mm[Hg] 82 mm[Hg] eCW1 ([facility]) Body height 61 [in_i] 61 [in_i] eCW1 ([facility]) Body weight [lb_av] eCW1 ([facility]) Diastolic blood pressure 91 mm[Hg] 91 mm[Hg] eCW1 ([facility]) Body mass index (BMI) [Ratio] 31.74 kg/m2 31.74 kg/m2 eCW1 ([facility]) Heart rate 90 /min 90 /min eCW1 ([facility]) Respiratory rate 18 /min 18 /min eCW1 ([facility]) Body temperature 98.1 [degF] 98.1 [degF] eCW1 ( [facility]) Systolic blood pressure 142 mm[Hg] 142 mm[Hg] e CW1 ([facility]) Systolic blood pressure 142 mm[Hg] 142 mm[Hg] M EDENT ([facility], [facility]) Body weight 167.00 [lb_av] 167.00 [lb_av] MEDEN T ([facility], [facility]) Body height 61 [in_i] 61 [in_i] MEDENT ([facility]) 5'1" Body mass index (BMI) [Ratio] 31.6 kg/m2 31.6 k g/m2 MEDENT ([facility], [facility]) Diastolic blood pressure 90 mm[Hg] 90 mm[Hg] MEDENT ([facility], [facility]) Heart rate 101 /min 101 /min MEDENT ([facility], [facility]) Respiratory rate 14 /min 14 /min MEDENT ( [facility]) Oxygen saturation in Arterial blood by Pulse oximetry 98 % 98 % MEDENT ([facility], [facility]) Body temperature 98.0 [degF] 98.0 [degF] MEDENT ([facility], [facility]) Body weight [lb_av] eCW1 ([facility]) Body height 61 [in_i] 61 [in_i] eCW1 ([facility]) Body mass index (BMI) [Ratio] 32.12 kg/m2 32.12 kg/m2 eCW1 ([facility]) Heart rate 98 /min 98 /min eCW1 ([facility]) Respiratory rate 18 /min 18 /min eCW1 ([facility]) Body temperature 98.5 [degF] 98.5 [degF] eCW1 ( [facility]) Systolic blood pressure 130 mm[Hg] 130 mm[Hg] e CW1 ([facility]) Diastolic blood pressure 85 mm[Hg] 85 mm[Hg] eCW1 ([facility]) Patient Treatment Plan of Care Planned Activity Planned Date Details Description Data Source (s) Sulfamethoxazole 800 MG / Trimethoprim 160 MG Oral Tab let [Bactrim] 03/14/2021 12:00:00 AM EDT eCW1 ([facility]) Phenazopyridine hydrochloride 200 MG Oral Tablet [Pyri dium] 03/14/2021 12:00:00 AM EDT eCW1 ([facility]) ferrous sulfate 325 MG Oral Tablet 02/08/2021 12:00:00 AM EDT eCW1 ([facility]) ferrous sulfate 325 MG Oral Tablet 02/08/2021 12:00:00 AM EDT eCW1 ([facility]) ferrous sulfate 325 MG Oral Tablet 02/08/2021 12:00:00 AM EDT eCW1 ([facility]) ferrous sulfate 325 MG Oral Tablet 02/08/2021 12:00:00 AM EDT eCW1 ([facility]) ferrous sulfate 325 MG Oral Tablet 02/08/2021 12:00:00 AM EDT eCW1 ([facility]) ferrous sulfate 325 MG Oral Tablet 02/08/2021 12:00:00 AM EDT eCW1 ([facility]) ferrous sulfate 325 MG Oral Tablet 02/08/2021 12:00:00 AM EDT eCW1 ([facility]) ferrous sulfate 325 MG Oral Tablet 02/08/2021 12:00:00 AM EDT eCW1 ([facility]) tramadol hydrochloride 50 MG Oral Tablet 01/17/2021 12:00:00 AM EDT eCW1 ([facility]) tramadol hydrochloride 50 MG Oral Tablet 01/17/2021 12:00:00 AM EDT eCW1 ([facility]) tramadol hydrochloride 50 MG Oral Tablet 01/17/2021 12:00:00 AM EDT eCW1 ([facility]) tramadol hydrochloride 50 MG Oral Tablet 01/17/2021 12:00:00 AM EDT eCW1 ([facility]) tramadol hydrochloride 50 MG Oral Tablet 01/17/2021 12:00:00 AM EDT eCW1 ([facility]) tramadol hydrochloride 50 MG Oral Tablet 01/17/2021 12:00:00 AM EDT eCW1 ([facility]) tramadol hydrochloride 50 MG Oral Tablet 01/17/2021 12:00:00 AM EDT eCW1 ([facility]) tramadol hydrochloride 50 MG Oral Tablet 01/17/2021 12:00:00 AM EDT eCW1 ([facility]) tramadol hydrochloride 50 MG Oral Tablet 01/17/2021 12:00:00 AM EDT eCW1 ([facility]) tramadol hydrochloride 50 MG Oral Tablet 01/17/2021 12:00:00 AM EDT eCW1 ([facility]) tramadol hydrochloride 50 MG Oral Tablet 01/17/2021 12:00:00 AM EDT eCW1 ([facility]) tramadol hydrochloride 50 MG Oral Tablet 01/17/2021 12:00:00 AM EDT eCW1 ([facility]) tramadol hydrochloride 50 MG Oral Tablet 01/17/2021 12:00:00 AM EDT eCW1 ([facility]) tramadol hydrochloride 50 MG Oral Tablet 01/17/2021 12:00:00 AM EDT eCW1 ([facility]) tramadol hydrochloride 50 MG Oral Tablet 01/17/2021 12:00:00 AM EDT eCW1 ([facility]) tramadol hydrochloride 50 MG Oral Tablet 01/17/2021 12:00:00 AM EDT eCW1 ([facility]) tramadol hydrochloride 50 MG Oral Tablet 01/17/2021 12:00:00 AM EDT eCW1 ([facility]) tramadol hydrochloride 50 MG Oral Tablet 01/17/2021 12:00:00 AM EDT eCW1 ([facility]) Cyclobenzaprine hydrochloride 5 MG Oral Tablet 11/29/2020 12:00:00 AM EDT eCW1 ([facility]) Folic Acid 1 MG Oral Tablet 11/29/2020 12:00:00 AM EDT eCW1 ([facility]) Folic Acid 1 MG Oral Tablet 11/29/2020 12:00:00 AM EDT eCW1 ([facility]) Cyclobenzaprine hydrochloride 5 MG Oral Tablet 11/29/2020 12:00:00 AM EDT eCW1 ([facility]) Folic Acid 1 MG Oral Tablet 11/29/2020 12:00:00 AM EDT eCW1 ([facility]) Cyclobenzaprine hydrochloride 5 MG Oral Tablet 11/29/2020 12:00:00 AM EDT eCW1 ([facility]) Folic Acid 1 MG Oral Tablet 11/29/2020 12:00:00 AM EDT eCW1 ([facility]) Cyclobenzaprine hydrochloride 5 MG Oral Tablet 11/29/2020 12:00:00 AM EDT eCW1 ([facility]) Cyclobenzaprine hydrochloride 5 MG Oral Tablet 11/29/2020 12:00:00 AM EDT eCW1 ([facility]) Folic Acid 1 MG Oral Tablet 11/29/2020 12:00:00 AM EDT eCW1 ([facility]) Cyclobenzaprine hydrochloride 5 MG Oral Tablet 11/29/2020 12:00:00 AM EDT eCW1 ([facility]) Folic Acid 1 MG Oral Tablet 11/29/2020 12:00:00 AM EDT eCW1 ([facility]) Cyclobenzaprine hydrochloride 5 MG Oral Tablet 11/29/2020 12:00:00 AM EDT eCW1 ([facility]) Folic Acid 1 MG Oral Tablet 11/29/2020 12:00:00 AM EDT eCW1 ([facility]) Cyclobenzaprine hydrochloride 5 MG Oral Tablet 11/29/2020 12:00:00 AM EDT eCW1 ([facility]) Folic Acid 1 MG Oral Tablet 11/29/2020 12:00:00 AM EDT eCW1 ([facility]) Cyclobenzaprine hydrochloride 5 MG Oral Tablet 11/29/2020 12:00:00 AM EDT eCW1 ([facility]) Folic Acid 1 MG Oral Tablet 11/29/2020 12:00:00 AM EDT eCW1 ([facility]) Cyclobenzaprine hydrochloride 5 MG Oral Tablet 11/29/2020 12:00:00 AM EDT eCW1 ([facility]) Folic Acid 1 MG Oral Tablet 11/29/2020 12:00:00 AM EDT eCW1 ([facility]) Cyclobenzaprine hydrochloride 5 MG Oral Tablet 11/29/2020 12:00:00 AM EDT eCW1 ([facility]) Folic Acid 1 MG Oral Tablet 11/29/2020 12:00:00 AM EDT eCW1 ([facility]) rizatriptan 10 MG Oral Tablet 09/05/2020 12:00:00 AM EST eCW1 ([facility]) rizatriptan 10 MG Oral Tablet 09/05/2020 12:00:00 AM EST eCW1 ([facility]) rizatriptan 10 MG Oral Tablet 09/05/2020 12:00:00 AM EST eCW1 ([facility]) rizatriptan 10 MG Oral Tablet 09/05/2020 12:00:00 AM EST eCW1 ([facility]) rizatriptan 10 MG Oral Tablet 09/05/2020 12:00:00 AM EST eCW1 ([facility]) rizatriptan 10 MG Oral Tablet 09/05/2020 12:00:00 AM EST eCW1 ([facility]) rizatriptan 10 MG Oral Tablet 09/05/2020 12:00:00 AM EST eCW1 ([facility]) rizatriptan 10 MG Oral Tablet 09/05/2020 12:00:00 AM EST eCW1 ([facility]) rizatriptan 10 MG Oral Tablet 09/05/2020 12:00:00 AM EST eCW1 ([facility]) rizatriptan 10 MG Oral Tablet 09/05/2020 12:00:00 AM EST eCW1 ([facility]) rizatriptan 10 MG Oral Tablet 09/05/2020 12:00:00 AM EST eCW1 ([facility]) rizatriptan 10 MG Oral Tablet 09/05/2020 12:00:00 AM EST eCW1 ([facility]) rizatriptan 10 MG Oral Tablet 09/05/2020 12:00:00 AM EST eCW1 ([facility]) rizatriptan 10 MG Oral Tablet 09/05/2020 12:00:00 AM EST eCW1 ([facility]) rizatriptan 10 MG Oral Tablet 09/05/2020 12:00:00 AM EST eCW1 ([facility]) Cholecalciferol 88693 UNT Oral Capsule 08/30/2020 12:00:00 AM EST eCW1 ([facility]) Cholecalciferol 92818 UNT Oral Capsule 08/30/2020 12:00:00 AM EST eCW1 ([facility]) Cholecalciferol 32284 UNT Oral Capsule 08/30/2020 12:00:00 AM EST eCW1 ([facility]) Cholecalciferol 65548 UNT Oral Capsule 08/30/2020 12:00:00 AM EST eCW1 ([facility]) Cholecalciferol 87735 UNT Oral Capsule 08/30/2020 12:00:00 AM EST eCW1 ([facility]) Cholecalciferol 86959 UNT Oral Capsule 08/30/2020 12:00:00 AM EST eCW1 ([facility]) Cholecalciferol 80500 UNT Oral Capsule 08/30/2020 12:00:00 AM EST eCW1 ([facility]) Cholecalciferol 47071 UNT Oral Capsule 08/30/2020 12:00:00 AM EST eCW1 ([facility]) Cholecalciferol 11423 UNT Oral Capsule 08/30/2020 12:00:00 AM EST eCW1 ([facility]) Cholecalciferol 72622 UNT Oral Capsule 08/30/2020 12:00:00 AM EST eCW1 ([facility]) Cholecalciferol 41990 UNT Oral Capsule 08/30/2020 12:00:00 AM EST eCW1 ([facility]) Cholecalciferol 22893 UNT Oral Capsule 08/30/2020 12:00:00 AM EST eCW1 ([facility]) Vitamin D3 125 MCG (5000 UT) 08/30/2020 12:00:00 AM EST eCW1 ([facility]) Cholecalciferol 57618 UNT Oral Capsule 08/30/2020 12:00:00 AM EST eCW1 ([facility]) Cholecalciferol 86050 UNT Oral Capsule 08/30/2020 12:00:00 AM EST eCW1 ([facility]) Amoxicillin 875 MG / Clavulanate 125 MG Oral Tablet 07/11/20 20 12:00:00 AM EST eCW1 ([facility]) frovatriptan 2.5 MG Oral Tablet 07/11/2020 12:00:00 AM EST eCW1 ([facility]) Clotrimazole 10 MG/ML Topical Cream 07/11/2020 12:00:00 AM EST eCW1 ([facility]) frovatriptan 2.5 MG Oral Tablet 07/11/2020 12:00:00 AM EST eCW1 ([facility]) Amoxicillin 875 MG / Clavulanate 125 MG Oral Tablet 07/11/20 20 12:00:00 AM EST eCW1 ([facility]) Clotrimazole 10 MG/ML Topical Cream 07/11/2020 12:00:00 AM EST eCW1 ([facility]) frovatriptan 2.5 MG Oral Tablet 07/11/2020 12:00:00 AM EST eCW1 ([facility]) Amoxicillin 875 MG / Clavulanate 125 MG Oral Tablet 07/11/20 20 12:00:00 AM EST eCW1 ([facility]) Clotrimazole 10 MG/ML Topical Cream 07/11/2020 12:00:00 AM EST eCW1 ([facility]) frovatriptan 2.5 MG Oral Tablet 07/11/2020 12:00:00 AM EST eCW1 ([facility]) Amoxicillin 875 MG / Clavulanate 125 MG Oral Tablet 07/11/20 20 12:00:00 AM EST eCW1 ([facility]) Amoxicillin 875 MG / Clavulanate 125 MG Oral Tablet 07/11/20 20 12:00:00 AM EST eCW1 ([facility]) Clotrimazole 10 MG/ML Topical Cream 07/11/2020 12:00:00 AM EST eCW1 ([facility]) frovatriptan 2.5 MG Oral Tablet 07/11/2020 12:00:00 AM EST eCW1 ([facility]) Amoxicillin 875 MG / Clavulanate 125 MG Oral Tablet 07/11/20 12:00:00 AM EST eCW1 ([facility]) Clotrimazole 10 MG/ML Topical Cream 07/11/2020 12:00:00 AM EST eCW1 ([facility]) frovatriptan 2.5 MG Oral Tablet 07/11/2020 12:00:00 AM EST eCW1 ([facility]) Amoxicillin 875 MG / Clavulanate 125 MG Oral Tablet 07/11/20 12:00:00 AM EST eCW1 ([facility]) Clotrimazole 10 MG/ML Topical Cream 07/11/2020 12:00:00 AM EST eCW1 ([facility]) frovatriptan 2.5 MG Oral Tablet 07/11/2020 12:00:00 AM EST eCW1 ([facility]) Amoxicillin 875 MG / Clavulanate 125 MG Oral Tablet 07/11/20 12:00:00 AM EST eCW1 ([facility]) Clotrimazole 10 MG/ML Topical Cream 07/11/2020 12:00:00 AM EST eCW1 ([facility]) frovatriptan 2.5 MG Oral Tablet 07/11/2020 12:00:00 AM EST eCW1 ([facility]) Amoxicillin 875 MG / Clavulanate 125 MG Oral Tablet 07/11/20 20 12:00:00 AM EST eCW1 ([facility]) Clotrimazole 10 MG/ML Topical Cream 07/11/2020 12:00:00 AM EST eCW1 ([facility]) frovatriptan 2.5 MG Oral Tablet 07/11/2020 12:00:00 AM EST eCW1 ([facility]) Amoxicillin 875 MG / Clavulanate 125 MG Oral Tablet 07/11/20 20 12:00:00 AM EST eCW1 ([facility]) Clotrimazole 10 MG/ML Topical Cream 07/11/2020 12:00:00 AM EST eCW1 ([facility]) frovatriptan 2.5 MG Oral Tablet 07/11/2020 12:00:00 AM EST eCW1 ([facility]) Clotrimazole 10 MG/ML Topical Cream 07/11/2020 12:00:00 AM EST eCW1 ([facility]) Amoxicillin 875 MG / Clavulanate 125 MG Oral Tablet 07/11/20 20 12:00:00 AM EST eCW1 ([facility]) Clotrimazole 10 MG/ML Topical Cream 07/11/2020 12:00:00 AM EST eCW1 ([facility]) frovatriptan 2.5 MG Oral Tablet 07/11/2020 12:00:00 AM EST eCW1 ([facility]) Amoxicillin 875 MG / Clavulanate 125 MG Oral Tablet 07/11/20 20 12:00:00 AM EST eCW1 ([facility]) Clotrimazole 10 MG/ML Topical Cream 07/11/2020 12:00:00 AM EST eCW1 ([facility]) frovatriptan 2.5 MG Oral Tablet 07/11/2020 12:00:00 AM EST eCW1 ([facility]) Amoxicillin 875 MG / Clavulanate 125 MG Oral Tablet 07/11/20 20 12:00:00 AM EST eCW1 ([facility]) Clotrimazole 10 MG/ML Topical Cream 07/11/2020 12:00:00 AM EST eCW1 ([facility]) frovatriptan 2.5 MG Oral Tablet 07/11/2020 12:00:00 AM EST eCW1 ([facility])
[2021-05-08] MEDS ORDERED: ONDANSETRON 4MG/2ML VIAL As Ordered ONE (08:44)
[2021-05-08] MEDS ORDERED: MIDAZOLAM INJ 2MG/2ML VIAL (J2250 PER 1MG) As Ordered ONE (08:44)
[2021-05-08] MEDS ORDERED: propofoL 200 MG/20 ML VIAL As Ordered ONE (08:44)
[2021-05-08] MEDS ORDERED: dexameTHASONE 4 MG/ML 1ML VIAL (J1100 PER 1MG) As Ordered ONE (08:44)
[2021-05-08] MEDS ORDERED: LIDOCAINE 2% 100MG/5ML SDV (FOR ANES.) As Ordered ONE (08:44)
[2021-05-08] MEDS ORDERED: fentaNYL 100 MCG/2 ML INJECTION (J3010) As Ordered ONE (08:44)
[2021-05-08] MEDS ORDERED: BUPIVACAINE/EPIN 0.25% 30 ML VIAL As Ordered ONE (09:59)
[2021-05-08] MEDS ORDERED: ACETAMINOPHEN 1000MG 100ML IV BTL (OFIRMEV) (J0131 PER 10MG) As Ordered ONE (10:23)
[2021-05-08 10:48] VITALS: BP 110/66
--- NOTE | 2021-05-08 10:48 | ROOPDOC ---
[facility] Report Of Operation Report of Operation DATE OF PROCEDURE: 05/08/21 PREPROCEDURE DIAGNOSES: Right carpal tunnel syndrome. POSTPROCEDURE DIAGNOSES: Right carpal tunnel syndrome. PROCEDURE PERFORMED: Right open carpal tunnel release. SURGEON: Dr. Del Lagos MD PAN DUMPER: None ANESTHESIA: Local/MAC Dr Snider. ESTIMATED BLOOD LOSS: Approximately 10 mL. COMPLICATIONS: None. REMARKS: None. FINDINGS: N/A SPECIMENS REMOVED: None PROCEDURE NOTE: This 40-year-old female with signs and symptoms as well as nerve conduction evidence of right carpal tunnel syndrome was to go ahead with open carpal tunnel release. I saw the patient in preoperative holding. We discussed the pros and cons risks and benefits of surgery versus nonoperative management. She wished to go ahead. I marked the right upper extremity. There no further questions.. DESCRIPTION OF PROCEDURE: Patient was brought to the operating theater. They were placed supine on the operating room table. Hand table was used. Limb was prepped and draped in the usual sterile fashion. I used chlorhexidine-based prep solution allowing over 3 minutes drying time prior to draping. 2 g of IV Ancef was given prior to starting the case. Local/MAC anesthesia was used. Preoperative timeout was performed confirming the site the patient and the surgery. I began by infiltrating 5 mL of local anesthetic with epinephrine in and around the proposed incision site. This was on the palmar surface just distal to the wrist crease longitudinally in line with the fourth digit. The incision length was approximately 2 cm. I allowed the local anesthetic time to work. I carried the dissection down through skin and subcutaneous tissue to meticulous hemostasis. I incised the palmar fascia in line with the skin incision. I incised the transverse carpal ligament in line with the skin incision fully pr oximally and distally. Nerve appeared in continuity throughout the case. I thoroughly irrigated the wound with normal saline. I closed the subcutaneous tissues with 2-0 Vicryl sutures and the skin with 3-0 Ethilon in a horizontal mattress fashion. Wound cleaned with wet and dry dressing followed by application of non stick dressing, 4 x 8 gauze and overwrapped with Demi type dressing. Patient was woken up from their sedation and transferred off the operating room table and taken to postanesthetic care unit in stable condition. All sponge, needle, instrument counts were correct. No complications. The patient is to start immediate hand wrist and elbow exercises but avoid heavy lifting and gripping-type activities for the first 6 weeks. They will be discha rged home according to day surgery criteria. They can change the dressing postoperative day 1 and avoid showering over top or getting it wet for the first 14 days. Follow-up in the office in 2 weeks' time. Postoperative wound instructions were given. It was recommended to keep the wound clean and dry. Dressing changes as needed. It was reinforced with the patient that they should call us or be seen immediately for redness, drainage, or fever.. DEL LAGOS MD May 08, 2021 10:48
== END 2021-05-08 11:30 | disposition home or self-care (01) ==
LOC: M SDC 08:18
PROVIDERS: ATTEND Orthopaedic Surgery Sports Medicine
DX: G56.01 Carpal tunnel syndrome, right upper limb (principal); M75.41 Impingement syndrome of right shoulder; F41.9 Anxiety disorder, unspecified; F31.9 Bipolar disorder, unspecified; R12 Heartburn; Z87.440 Personal history of urinary (tract) infections; G43.909 Migraine, unspecified, not intractable, without status migrainosus; F17.210 Nicotine dependence, cigarettes, uncomplicated; Z79.899 Other long term (current) drug therapy; Z87.09 Personal history of other diseases of the respiratory system
CPT/HCPCS: 64721; J0131; J0690; J1100; J2250; J2405; J3010

== ENCOUNTER → 2022-04-07 | Outpatient (CLI) | payer OTHER, BC ==
[~2022-04-07] MED LIST changes: -LIDOCAINE 1% MDV 20ML VIAL SQ PRN; -LR 1,000 ML IV ONE; -ceFAZolin SOD 2 GM in IV 1 EA IV ONE
== END ==
LOC: M SOG 09:35
PROVIDERS: ATTEND Physician Assistant
DX: Z48.89 Encounter for other specified surgical aftercare (principal); M25.542 Pain in joints of left hand

== ENCOUNTER → 2022-04-11 | Outpatient (CLI) | payer BC ==
[~2022-04-11] MED LIST changes: +BUPR300T92 PO
== END ==
LOC: M WUC 11:00
PROVIDERS: ATTEND Physician Assistant
DX: E55.9 Vitamin D deficiency, unspecified (principal); R53.83 Other fatigue

== ENCOUNTER → 2022-04-13 | Outpatient (CLI) | payer BC, OTHER | LOC: M LABSMTC 09:45 | PROVIDERS: ATTEND Anesthesiology | DX: Z01.818 Encounter for other preprocedural examination (principal); Z11.52 Encounter for screening for COVID-19 ==

== ENCOUNTER 2022-04-14 08:20 | Day surgery (SDC) | payer BC ==
[~2022-04-14] VITALS: Ht 157.5 cm; Wt 82.5 kg
[2022-04-14] MEDS ORDERED: LR 1,000 ML IV SCH ×2 (08:35→11:20)
[2022-04-14] MEDS ORDERED: ONDANSETRON 4MG 2ML VIAL As Ordered ONE (10:28)
[2022-04-14] MEDS ORDERED: KETOROLAC 60MG 2ML VIAL As Ordered ONE (10:28)
[2022-04-14] MEDS ORDERED: propofoL 200 MG/20 ML VIAL As Ordered ONE (10:28)
[2022-04-14] MEDS ORDERED: LIDOCAINE 2% 100MG/5ML SDV (FOR ANES.) As Ordered ONE (10:28)
[2022-04-14] MEDS ORDERED: MIDAZOLAM INJ 2MG/2ML VIAL (J2250 PER 1MG) As Ordered ONE (10:28)
[2022-04-14] MEDS ORDERED: dexameTHASONE 4 MG/ML 1ML VIAL (J1100 PER 1MG) As Ordered ONE (10:28)
[2022-04-14] MEDS ORDERED: METOCLOPRAMIDE INJ 10MG/2ML VIAL (J2765 PER 1) As Ordered ONE (10:28)
[2022-04-14] MEDS ORDERED: fentaNYL 100 MCG/2 ML INJECTION As Ordered ONE (10:28)
[2022-04-14] MEDS ORDERED: BUPIVACAINE HCL 0.25% 30ML VIAL As Ordered ONE (10:39)
[2022-04-14] MEDS ORDERED: oxyCODONE 5MG TAB PO PRN (11:20)
[2022-04-14] MEDS ORDERED: ONDANSETRON 4MG 2ML VIAL IV PRN (11:20)
[2022-04-14] MEDS ORDERED: fentaNYL 100 MCG/2 ML INJECTION IV PRN (11:20)
[2022-04-14 12:55] VITALS: BP 138/81
== END 2022-04-14 12:55 | disposition home or self-care (01) ==
LOC: M SDC 08:20
PROVIDERS: ATTEND Orthopaedic Surgery Hand Surgery
DX: G56.02 Carpal tunnel syndrome, left upper limb (principal)
CPT/HCPCS: 29848; J1100; J1885; J2250; J2405; J2765; J3010

== ENCOUNTER → 2024-09-23 | Outpatient (CLI) | payer BC ==
[~2024-09-23] MED LIST changes: +BUPR-597 PO; -BUPR300T92 PO; +MECL-209 PO; -MECL1TAB31 PO; +ONDA-282 PO; -ONDA4TAB6 PO; +TOPI-21; -TOPI50TA9
[2024-09-23 19:03] LABS: BASO % 0.2 % (0.0-1.0); EOS # 0.3 10^3/uL (0.0-0.5); EOS % 2.7 % (0.0-3.0); HEMATOCRIT 43.4 % (36.0-47.0); HEMOGLOBIN 13.9 g/dl (12.0-15.5); LYMPH # 2.9 10^3/uL (1.5-5.0); LYMPH % 29.6 % (24.0-44.0); MEAN CORPUSCULAR HEMOGLOBIN 33.3 pg (27.0-33.0); MEAN CORPUSCULAR VOLUME 103.8 fl (80.0-96.0); MONO # 0.6 10^3/uL (0.0-0.8); MONO % 6.4 % (2.0-8.0); NEUTROPHILS % 60.8 % (36.0-66.0); PLATELET COUNT, AUTOMATED 331 10^3/uL (150-450); RED BLOOD COUNT 4.18 10^6/uL (4.00-5.40); WHITE BLOOD COUNT 9.9 10^3/uL (4.0-10.0)
[2024-09-23 19:04] LABS: FERRITIN 89.5 NG/ML (7.3-270.7)
[2024-09-23 19:08] LABS: IRON (FE) 101 UG/DL (50-170)
[2024-09-23 19:09] LABS: ALBUMIN 4.2 G/DL (3.2-5.2); ALKALINE PHOSPHATASE 69 U/L (35-104); ALT/SGPT 34 U/L (7.0-40); AST/SGOT 14 U/L (<34); BILIRUBIN,TOTAL 0.4 MG/DL (0.3-1.2); BLOOD UREA NITROGEN 15 MG/DL (9-23); CALCIUM LEVEL 9.4 MG/DL (8.5-10.1); CARBON DIOXIDE LEVEL 26 MMOL/L (20-31); CHLORIDE LEVEL 107 MMOL/L (98-107); CHOLESTEROL LEVEL 222 MG/DL (<200); CHOLESTEROL RISK RATIO 5.48 (<5); CREATININE FOR GFR 0.99 MG/DL (0.55-1.30); FOLATE 5.5 NG/ML (>5.4); GLOMERULAR FILTRATION RATE > 60.0 (>58); GLUCOSE, FASTING 81 MG/DL (60-100); HDL CHOLESTEROL 40.5 MG/DL (>40); LDL CHOLESTEROL 142.9 MG/DL (<100); NON-HDL-C 181.5 MG/DL; POTASSIUM SERUM 4.8 MMOL/L (3.5-5.1); SODIUM LEVEL 142 MMOL/L (136-145); TRIGLYCERIDES LEVEL 193 MG/DL (<150)
[2024-09-23 19:10] LABS: VITAMIN B12 LEVEL 676 PG/ML (211-911)
== END ==
LOC: M WUC 11:43
PROVIDERS: ATTEND Physician Assistant Medical
DX: D75.89 Other specified diseases of blood and blood-forming organs (principal); E78.2 Mixed hyperlipidemia